=== PATIENT | female | born 1980 | race Caucasian/White ===

== ENCOUNTER 2020-04-07 10:44 | Emergency (ER) | payer MEDICAID, SELFPAY ==
[2020-04-07 11:01] VITALS: BP 164/88; PULSE 85; RESP 18; TEMP 36.2; O2SAT 98; BMI 43.8
--- NOTE | 2020-04-07 11:07 | W.ED.ABDPA2 ---
HPI - Abdominal Pain General: Chief Complaint: Abdominal Pain Stated Complaint: Abd pain Time Seen by Provider: 04/07/20 11:05 Source: patient Mode of arrival: ambulatory Limitations: no limitations History of Present Illness: HPI narrative: Patient is a very nice 39-year-old female who presents to ED today seeking evaluation for her abdominal pain. Patient tells me she has lost approximately 90 pounds over the past year with diet and exercise. She tells me approximately 3 days ago she went to [employer] to celebrate by eating a big cheeseburger and states it was the worst decision I have ever made . She states since that time she has had severe upper abdominal pain. Patient does tell me she has a history of gallbladder disease and states 3 years ago she was diagnosed with a biliary leak at [facility]. She never followed up because she lost her insurance. She states she has not had any difficulty with her gallbladder over the past few years. She reports nausea without vomiting. She has had a few episodes of diarrhea over the past few days. No fevers. MD elicited complaint: abdominal pain Onset (ago): day(s) Pain Consistency: constant Location: RUQ Severity: moderate Radiation: other (L chest/L shoulder) Exacerbating factors: eating Relieving factors: nothing Associated Symptoms: Reports diarrhea and nausea; Denies change in bowel habits, change in stool character, chills, dysuria, fever(s), hematochezia, hematemesis, melena and vomiting Review of Systems Const: Denies: fever(s), chills, body aches, fatigue or malaise Card: Denies: chest pain Resp: Denies: dyspnea GI: Reports: abdominal pain, nausea and diarrhea; Denies: vomiting, hematemesis, change in bowel habits, pain on defecation, change in stool character, hematochezia or melena : Denies: flank pain, difficulty voiding, dysuria, urinary frequency, urinary urgency or urinary hesitancy Musc: Denies: neck pain or back pain Skin/Breast: Denies: rash Neuro: Denies: headache(s), numbness in extremities, weakness in extremities or sensory changes PFSH ED PFSH: Social History (Updated 02/24/20 @ 16:45 by Sujata Bowles CMA) Smoking and tobacco status: never smoked Alcohol intake: never Physical Exam Const: COMMON NORMALS: no acute distress, patient oriented x3, no limitations and alert GENERAL APPEARANCE: cooperative NUTRITIONAL APPEARANCE: overweight ORIENTATION/CONSCIOUSNESS: Yes awake, Yes oriented to person, Yes oriented to place and Yes oriented to time HENMT: COMMON NORMALS: normocephalic and atraumatic HEAD & SCALP: normocephalic and atraumatic Chest: COMMONS NORMALS: normal inspection of the chest and normal palpation of entire chest wall Resp: COMMON NORMALS: normal respiratory effort and clear to auscultation bilaterally AUSCULTATION: clear to auscultation bilaterally Cardio: COMMON NORMALS: regular rate and regular rhythm RATE: regular rate RHYTHM: regular rhythm GI: COMMON NORMALS: Normal to inspection, nondistended, normoactive bowel sounds present, Soft to palpation, No hepatosplenomegaly present and no masses PALPATION: Yes Soft to palpation, Yes Tenderness to palpation present (GI) (mainly to RUQ/epigastric ) and Yes No hepatosplenomegaly present : COMMON NORMALS: Yes no CVA tenderness BLADDER/KIDNEY EXAM: Yes no CVA tenderness Back/Pelvis: COMMON NORMALS: no CVA tenderness Extremity: COMMON NORMALS: normal to inspection GENERAL: Yes normal exam except as noted Neuro: COMMON NORMALS: patient oriented x3 SENSORIUM/ORIENTATION: Yes alert, Yes oriented to person, Yes oriented to place and Yes oriented to time Skin: COMMON NORMALS: no rashes or lesions noted GENERAL SKIN EXAM: no rashes or lesions noted Course Vital Signs: Vital signs: Vital Signs Temperature 97.2 F L 04/07/20 11:01 Pulse Rate 85 04/07/20 11:01 Respiratory Rate 18 04/07/20 11:01 Blood Pressure 164/88 04/07/20 11:01 Pulse Oximetry 98 04/07/20 11:01 MDM - Abdominal Pain MDM Narrative: Medical decision making narrative: Patient here for evaluation of her right upper quadrant pain. Patient's lab work including LFTs at this time are normal. Ultrasound of her gallbladder showing cholelithiasis without acute cholecystitis. Patient will be sent home with pain and nausea medications. I have placed information with case management who is currently working on getting patient follow-up with general surgery for evaluation of an elective cholecystectomy. Return to ED precautions given. Lab Data: Labs: Lab Results 04/07/20 04/07/20 04/07/20 Range/Units 11:30 11:30 11:30 WBC 10.4 H (4.0-10.0) 10^3/ uL RBC 4.66 (4.1-5.3) 10^6/u L Hgb 13.4 (11.5-15.3) g/dL Hct 42.5 (37.0-47.0) % MCV 91.2 (81-99) fL MCH 28.8 (28.0-34.0) pg MCHC 31.5 (30.0-36.0) g/dL RDW 13.6 (12.1-15.1) % Plt Count 358 (130-400) 10^3/c mm MPV 9.8 (7.4-10.4) fL Neut % (Auto) 64.4 % Lymph % (Auto) 27.5 % [place] % (Auto) 5.6 % Eos % (Auto) 1.4 % Baso % (Auto) 0.9 % Neut # (Auto) 6.70 (1.8-7.7) 10^3/u L Lymph # (Auto) 2.9 (0.8-4.8) 10^3/u L [place] # (Auto) 0.6 (0.2-0.9) 10^3/u L Eos # (Auto) 0.2 (0.0-0.8) 10^3/u L Baso # (Auto) 0.1 (0.0-0.1) 10^3/u L Nucleated RBC % (a uto) 0 % Nucleated RBCs # 0.0 /100WBC Sodium 139 (136-145) mmol/L Potassium 4.1 (3.5-5.1) mmol/L Chloride 104 (98-107) mmol/L Carbon Dioxide 28 (22-29) mmol/L Anion Gap 11.1 (5-19) BUN 7 (6-20) mg/dL Creatinine 0.7 (0.5-0.9) mg/dL GFR Calculation 93.2 (90-130) mL/min Glucose 79 (65-115) mg/dL Calculated Osmolal ity 285 (285-295) mOsm/k g Calcium 9.2 (8.5-10.5) mg/dL Total Bilirubin 0.3 (0.15-1.2) mg/dL AST 15 (0-32) U/L ALT 17 (0-33) U/L Alkaline Phosphata se 79 (35-105) IU/L Total Protein 6.9 (6.6-8.7) g/dL Albumin 4.2 (3.5-5.2) g/dL Globulin 2.7 (1.3-4.6) g/dL Lipase 11 L (13-60) U/L HCG, Qual Negative (Negative) Urine Color (Yellow) Urine Appearance (CLEAR) Urine pH (5-7) Ur Specific Gravit y (1.005-1.030) Urine Protein (Negative) Urine Glucose (UA) (Normal) Urine Ketones (Negative) Urine Blood (Negative) Urine Nitrate (Negative) Urine Bilirubin (Negative) Urine Urobilinogen (Negative) mg/dL Ur Leukocyte Katheryn ase (Negative) 04/07/20 Range/Units 11:30 WBC (4.0-10.0) 10^3/ uL RBC (4.1-5.3) 10^6/u L Hgb (11.5-15.3) g/dL Hct (37.0-47.0) % MCV (81-99) fL MCH (28.0-34.0) pg MCHC (30.0-36.0) g/dL RDW (12.1-15.1) % Plt Count (130-400) 10^3/c mm MPV (7.4-10.4) fL Neut % (Auto) % Lymph % (Auto) % [place] % (Auto) % Eos % (Auto) % Baso % (Auto) % Neut # (Auto) (1.8-7.7) 10^3/u L Lymph # (Auto) (0.8-4.8) 10^3/u L [place] # (Auto) (0.2-0.9) 10^3/u L Eos # (Auto) (0.0-0.8) 10^3/u L Baso # (Auto) (0.0-0.1) 10^3/u L Nucleated RBC % (a uto) % Nucleated RBCs # /100WBC Sodium (136-145) mmol/L Potassium (3.5-5.1) mmol/L Chloride (98-107) mmol/L Carbon Dioxide (22-29) mmol/L Anion Gap (5-19) BUN (6-20) mg/dL Creatinine (0.5-0.9) mg/dL GFR Calculation (90-130) mL/min Glucose (65-115) mg/dL Calculated Osmolal ity (285-295) mOsm/k g Calcium (8.5-10.5) mg/dL Total Bilirubin (0.15-1.2) mg/dL AST (0-32) U/L ALT (0-33) U/L Alkaline Phosphata se (35-105) IU/L Total Protein (6.6-8.7) g/dL Albumin (3.5-5.2) g/dL Globulin (1.3-4.6) g/dL Lipase (13-60) U/L HCG, Qual (Negative) Urine Color Straw (Yellow) Urine Appearance Clear (CLEAR) Urine pH 7 (5-7) Ur Specific Gravit y 1.005 (1.005-1.030) Urine Protein Neg (Negative) Urine Glucose (UA) Norm (Normal) Urine Ketones Negative (Negative) Urine Blood Neg (Negative) Urine Nitrate Negative (Negative) Urine Bilirubin Neg (Negative) Urine Urobilinogen Norm (Negative) mg/dL Ur Leukocyte Katheryn ase Negative (Negative) Imaging Data ^: US gallbladder: Radiologist's impression: [address] [address] Ultrasound Report Signed Patient: Jimmie Knapp Unit #: [id number] : 1980 Age/Sex: 39 / F ADM Date: 04/07/20 Loc: ER Room/Bed: Attending Dr: Ordering Provider/Ordering MD: Jennifer Howell Date of Service: 04/07/20 Procedure(s): US gall bladder 75480 Accession Number(s): [id number] Report Number: [id number] WS: [id number] RIGHT UPPER QUADRANT ULTRASOUND HISTORY: RUQ pain COMPARISON: 01/07/2011 Liver: 18.9 cm in length. Moderately enlarged liver with hepatic steatosis. No mass. The entire liver is not well seen. Gallbladder: Poorly visualized gallbladder. There is a stone with shadowing measuring 2.5 cm in the lumen of the gallbladder. No pericholecystic fluid or gallbladder wall thickening. CBD: 0.5 cm Pancreas: Normal size and echogenicity. Right kidney: 11.6 cm in length. Normal size and echogenicity. No hydronephrosis or mass. Aorta and IVC: Unremarkable abdominal aorta and IVC. No ascites. US/US gall bladder [id number] IMPRESSION: 1. Cholelithiasis without acute cholecystitis. 2. Mild hepatomegaly and hepatic steatosis. 3. Limited quality evaluation of the RIGHT upper quadrant. Dictated By: Hillary Varela DO Signed By: Hillary Varela DO Signed Date/Time: 04/07/20 1158 DD/ 1156 Discharge Plan Discharge Patient Disposition: Home Clinical Impression: Cholelithiasis Qualifiers: Cholelithiasis location: gallbladder Cholecystitis presence: without cholecystitis Biliary obstruction: without biliary obstruction Qualified Code(s): K80.20 - Calculus of gallbladder without cholecystitis without obstruction Condition: Stable Prescriptions: New hydrocodone-acetaminophen 5-325 mg tablet 1 tab PO Q6H PRN (Reason: pain) Qty: 15 RF: 0 Zofran 4 mg tablet 4 mg PO Q6H PRN (Reason: nausea and vomiting) Qty: 14 RF: 0 No Action hydrocodone-acetaminophen 5-325 mg tablet 1 tab PO Q6H PRN (Reason: Pain) RF: 0 Discharge Orders: Discharge ED (Routine); Ordered 04/07/20 Ordered By: Jennifer Howell Referrals: Sujata Schofield DO [Primary Care Provider] - Patient Instructions: Cholelithiasis, Biliary Colic (ED) Activity Restrictions/Additional Instructions: As discussed case management is working on getting you an appointment with general surgery for further evaluation of your gallstones. You need to return to the emergency department for severe abdominal pain, yellowing of your skin or eyes, repetitive episodes of vomiting, fevers, or any other concerns you may have. I hope you get to feeling better soon. Coding Level of Care Code ED Technical Sales Support Manager for Melony Fwtacho Exam Comprehensive
--- NOTE | 2020-04-07 11:20 | US_ITS ---
WS: [id number] RIGHT UPPER QUADRANT ULTRASOUND HISTORY: RUQ pain COMPARISON: 01/07/2011 Liver: 18.9 cm in length. Moderately enlarged liver with hepatic steatosis. No mass. The entire liver is not well seen. Gallbladder: Poorly visualized gallbladder. There is a stone with shadowing measuring 2.5 cm in the l umen of the gallbladder. No pericholecystic fluid or gallbladder wall thickening. CBD: 0.5 cm Pancreas: Normal size and echogenicity. Right kidney: 11.6 cm in length. Normal size and echogenicity. No hydronephrosis or mass. Aorta and IVC: Unremarkable abdominal aorta and IVC. No ascites. US/US gall bladder [id number] IMPRESSION: 1. Cholelithiasis without acute cholecystitis. 2. Mild hepatomegaly and hepatic steatosis. 3. Limited quality evaluation of the RIGHT upper quadrant.
[2020-04-07 11:42] LABS: Add Urine Microscopic? NO
[2020-04-07 11:44] LABS: Basophils # 0.1 10^3/uL (0.0-0.1); Basophils % 0.9 %; Eosinophils # 0.2 10^3/uL (0.0-0.8); Eosinophils % 1.4 %; Hematocrit 42.5 % (37.0-47.0); Hemoglobin 13.4 g/dL (11.5-15.3); Lymphocytes # 2.9 10^3/uL (0.8-4.8); Lymphocytes % 27.5 %; Mean Corpuscular HGB Conc 31.5 g/dL (30.0-36.0); Mean Corpuscular Hemoglobin 28.8 pg (28.0-34.0); Mean Corpuscular Volume 91.2 fL (81-99); Mean Platelet Volume 9.8 fL (7.4-10.4); Monocytes # 0.6 10^3/uL (0.2-0.9); Monocytes % 5.6 %; Neutrophils % 64.4 %; Nucleated Red Blood Cells % 0 %; Platelet Count 358 10^3/cmm (130-400); Red Blood Count 4.66 10^6/uL (4.1-5.3); Red Cell Distribution Width 13.6 % (12.1-15.1); White Blood Count 10.4 10^3/uL (4.0-10.0)
[2020-04-07 11:45] LABS: Urine Appearance Clear (CLEAR); Urine Color Straw (Yellow)
[2020-04-07 11:46] LABS: Bilirubin Urine Neg (Negative); Blood Urine Neg (Negative); Glucose Urine UA Norm (Normal); Ketones Urine Negative (Negative); Leukocyte Esterase Urine Negative (Negative); Nitrate Urine Negative (Negative); Protein Urine Neg (Negative); Specific Gravity, Urine 1.005 (1.005-1.030); Urobilinogen Urine Norm (Negative); pH Urine 7 (5-7)
[2020-04-07 11:58] LABS: HCG, Serum Qual Negative (Negative)
[2020-04-07 12:03] LABS: Alanine Aminotransferase 17 U/L (0-33); Albumin Level 4.2 g/dL (3.5-5.2); Alkaline Phosphatase 79 IU/L (35-105); Anion Gap 11.1 (5-19); Aspartate Amino Transferase 15 U/L (0-32); Blood Urea Nitrogen 7 mg/dL (6-20); Calcium 9.2 mg/dL (8.5-10.5); Carbon Dioxide 28 mmol/L (22-29); Chloride 104 mmol/L (98-107); Creatinine Clr Calc Pharmacy 149.4921; Globulin 2.7 g/dL (1.3-4.6); Glomerular Filtration Rate 93.2 mL/min (90-130); Glucose 79 mg/dL (65-115); Lipase 11 U/L (13-60); Osmolality Calculated 285 mOsm/kg (285-295); Potassium 4.1 mmol/L (3.5-5.1); Sodium 139 mmol/L (136-145); Total Bilirubin 0.3 mg/dL (0.15-1.2); Total Protein 6.9 g/dL (6.6-8.7)
--- NOTE | 2020-04-07 12:28 | DCPLANNER ---
linen manager was asked to schedule a follow up appointment for patient with general surgery. linen manager emailed patients information to both Lety and Jesusita at [facility] General Surgery. Patients information will be printed and reviewed. Clinic will call patient with appointment information.
--- NOTE | 2020-04-08 12:45 | DCPLANNER ---
Patient has a follow up appointment scheduled for Sunday, April 12, 2020 at 2:30 with [facility] General Surgery. Clinic will call patient with appointment information.
--- NOTE | 2020-05-20 15:51 | DCPLANNER ---
Patient had a follow up appointment scheduled with general surgery - patient did attend appointment.
== END 2020-04-07 12:33 | disposition home or self-care (01) ==
PROVIDERS: Emergency Provider Physician Assistant; PCP Family Medicine
DX: K80.20 Calculus of gallbladder without cholecystitis without obstruction (principal)
CPT/HCPCS: 12345; 76705; 80053; 81003; 83690; 84703; 85025; 99282; 99283

== ENCOUNTER → 2020-04-16 11:11 | Outpatient (BNVA) | payer MEDICAID, SELFPAY | PROVIDERS: PCP Nurse Practitioner Family; Visit Provider Surgery | DX: Z01.812 Encounter for preprocedural laboratory examination (principal) | CPT/HCPCS: 87635 ==

== ENCOUNTER 2020-04-19 10:23 | Day surgery (SDC) | payer MEDICAID, SELFPAY ==
[2020-04-16 17:19] VITALS: BMI 43.8
[2020-04-19] VITALS (9 sets, daily range): BP systolic 129–175; BP diastolic 82–105; PULSE 53–76; RESP 16–20; TEMP 36.2–36.3; O2SAT 93–100
--- NOTE | 2020-04-19 12:33 | P.ANESASSM_ITS ---
Pre-Anesthetic Assessment Pre-Anesthetic Assessment: Height/Weight: Height 1.7 m Weight 127.006 kg Temp Pulse Resp BP Pulse Ox 97.4 F L 58 L 18 129/84 100 04/19/20 12:06 04/19/20 12:06 04/19/20 12:06 04/19/20 12:06 04/19/20 12:06 Preop Diagnosis: Cholelithiasis Proposed Procedure: Operation Date: 04/19/20 12:25 Proposed Procedures p Laparoscopic Cholecystectomy 88182 k80.20(Not Applicable) - Germán Mora MD Familial anesthetic complications: Difficulty waking up Was Beta Sindy taken within 24 hours: N/A Last intake: Intake Last Liquid Date 04/19/20 Last Liquid Time 07:00 Last Solid Date 04/18/20 Last Solid Time 18:30 Social: Social History: Tobacco and No alcohol Exam: Pre-Anes Outpt Exam: alert, oriented x 3, clear to auscultation bilaterally and regular rate & rhythm Airway: Cervical ROM: WNL MP: 2 Dentition: Chipped and Other (missing) Pulmonary: Pulmonary: Asthma GI: GI: GERD Metabolic: Metabolic: Morbid obesity Anesthetic Plan: ASA status: 2 Anesthesia: General Risk of > 500 ml bloo d loss (7ml/kg in children): No PFSH Anesthesia PFSH: Medical History (Updated 04/16/20 @ 19:32 by Germán Mora MD) Asthma Cholelithiasis Surgical History (Updated 04/16/20 @ 10:20 by Germán Mora MD) History of Family History (Updated 04/16/20 @ 10:08 by NANDINI Win) Other Bleeding disorder Denies family history of Anesthesia complication Social History (Updated 04/16/20 @ 10:08 by NANDINI Win) Smoking and tobacco status: current every day smoker Alcohol intake: never Data Anesthesia Cardiac Studies: No Data to Display
[2020-04-19 12:51] LABS: OR HCG Qualitative Urine Negative (Negative)
--- NOTE | 2020-04-19 13:01 | W.PM.OPSUD ---
Surgery/Procedure H&P Update DATE OF PROCEDURE: April 19, 2020 DATE H&P PERFORMED: 04/16/20 H&P UPDATE INFORMATION: I have reviewed H&P completed within last 30 days, I have examined patient prior to procedure and No changes to prior documentation PREOP DIAGNOSIS: Cholelithiasis PLANNED PROCEDURE: Operation Date: 04/19/20 12:25 Proposed Procedures p Laparoscopic Cholecystectomy 39889 k80.20(Not Applicable) - Germán Mora MD
[2020-04-19] MEDS: sodium chloride 0.9% 1,000 ML 30 ML IV (13:07)
[2020-04-19] MEDS: levofloxacin-dextrose 5 % 500 MG/100 ML PREMIX 100 MG IV (14:05)
--- NOTE | 2020-04-19 15:21 | PM.OP ---
Operative Report Date of procedure: April 19, 2020 Pre-op Diagnosis: Cholelithiasis Post-op diagnosis: same Procedure Done: Laparoscopic cholecystectomy Specimens removed/disposition: gallbladder Surgeon: Germán Mora Anesthesia: General Condition: stable Disposition: PACU Procedure: The patient was taken to the operating room and was intubated under general anesthesia. After the antibiotic had been administered, the abdomen was prepped and draped in a sterile manner. Using a #15 blade, a 1 centimeter infraumbilical curvilinear incision was made and using an open Osbaldo technique the peritoneal cavity was entered. A 10 millimeter port was placed and 15 millimeters of pneumoperitoneum was created. A 10 millimeter, 30 degrees scope was then introduced. Three 5 millimeter ports were placed in the epigastric, midclavicular and the anterior axillary line two fingerbreadths below the costal margin on the right side under the direct visualization. Ratcheted forceps were introduced into the lateral most port and was used to retract the fundus of the gallbladder cephalad and using forceps the infundibulum of the gallbladder was retracted laterally. Using L-hook cautery the peritoneum overlying the Calot's triangle was opened medially and laterally until the cystic duct and the cystic artery were skeletonized. Dissection was carried along the body of the gallbladder and after ensuring critical view of safety, 4 clips applied on the cystic duct and 3 clips applied on the cystic artery and cut leaving, 3 clips on the remaining portion of the duct and 2 clips on the remaining portion of the artery. The rest of the gallbladder was dissected off the liver using L-hook cautery. The gallstones impacted within the fundus of the gallbladder and there is an opening made near the fundus while attempting to separate the gallbladder from the gallbladder fossa resulting in drainage of bile which was irrigated and suctioned out. There was no bleeding or bile leaking noted from the gallbladder fossa and the clips appeared to be in place. An EndoCatch bag was introduced to remove the gallbladder. All the ports were removed under direct visualization and there was no bleeding noted from the port sites. The fascia of the umbilicus was closed using [id number] 0 Vicryl sutures and the subcutaneous tissue was approximated using 3-0 Vicryl sutures. The skin at all four ports were closed using 4-0 Monocryl and Dermabond. A total of 10 millimeters of 0.5% Marcaine was infiltrated around the port sites. The patient was stable throughout the procedure.
[2020-04-19] MEDS: fentaNYL 50 mcg/mL INJ 2mL IVP (15:28)
--- NOTE | 2020-04-19 15:30 | P.PCN_ITS ---
PACU note PACU note: VSS, Good respiratory effort, report to VIRTUAL REALITY SPECIALIST Post-Anesthesia Exam: awake
--- NOTE | 2020-04-19 15:30 | PM.PACU ---
PACU note PACU note: VSS, Good respiratory effort, report to EDUCATION ADMINISTRATOR Post-Anesthesia Exam: awake
--- NOTE | 2020-04-19 15:57 | ANE.PACU2 ---
Inpatient post-anesthesia follow up: Airway intact: Yes Vital signs: Temperature 97.1 F Pulse Rate 64 Respiratory Rate 17 Blood Pressure 170/82 Pulse Oximetry 95 Oxygen Delivery Me thod Room Air Oxygen Flow Rate Fraction of Inspir ed Oxygen Hydration adequate: Yes Nausea and vomiting: No Pain level: 3 Mental status: Baseline
[2020-04-19] MEDS: HYDROcodone-acetaminophen 5-325 mg Tablet 1 TAB PO (16:09)
== END 2020-04-19 16:50 | disposition home or self-care (01) ==
PROVIDERS: Anesthesiology; PCP Nurse Practitioner Family; Visit Provider Surgery
PROC: 0FT44ZZ Resection of Gallbladder, Percutaneous Endoscopic Approach (ICD-10-PCS; CPT 47562; principal; 2020-04-19 12:25)
DX: K80.10 Calculus of gallbladder with chronic cholecystitis without obstruction (principal); J45.909 Unspecified asthma, uncomplicated; K21.9 Gastro-esophageal reflux disease without esophagitis; E66.01 Morbid (severe) obesity due to excess calories; Z68.41 Body mass index [BMI] 40.0-44.9, adult; F17.210 Nicotine dependence, cigarettes, uncomplicated
CPT/HCPCS: 47562; 81025; 84703; 88304; J0131; J1100; J1956; J2405; J2704; J2710; J3010; J3490; J7030

== ENCOUNTER → 2021-03-03 13:58 | Outpatient (BNVA) | payer MEDICAID, SELFPAY | PROVIDERS: PCP Nurse Practitioner Family; Visit Provider Nurse Practitioner Family | DX: Z20.822 Contact with and (suspected) exposure to COVID-19 (principal) | CPT/HCPCS: 87635 ==

== ENCOUNTER 2021-03-09 10:37 | Outpatient (CLI) | payer MEDICAID, SELFPAY ==
[2021-03-09 10:59] VITALS: BP 147/89; PULSE 74; RESP 18; TEMP 36.7; O2SAT 98; BMI 45.4
[2021-03-09 12:10] VITALS: BP 165/88; PULSE 59; RESP 17; TEMP 36.8; O2SAT 99
[2021-03-09 12:30] VITALS: BP 148/85; PULSE 60; RESP 18; TEMP 36.7; O2SAT 99
== END 2021-03-09 10:38 | disposition home or self-care (01) ==
LOC: OPS 10:40
PROVIDERS: PCP Nurse Practitioner Family; Visit Provider Nurse Practitioner Family
DX: U07.1 COVID-19 (principal)
CPT/HCPCS: 96365

== ENCOUNTER → 2021-05-13 16:01 | Outpatient (BNVA) | payer MEDICAID, SELFPAY | PROVIDERS: PCP Nurse Practitioner Family; Visit Provider Emergency Medicine | DX: M25.571 Pain in right ankle and joints of right foot (principal) | CPT/HCPCS: 73610 ==

== ENCOUNTER 2021-11-01 12:16 | Emergency (ER) | payer MEDICAID, SELFPAY ==
[2021-11-01 12:17] VITALS: BP 171/121; PULSE 76; RESP 16; TEMP 36.7; O2SAT 99; BMI 44.1
[2021-11-01 13:11] LABS: HCG Qualitative Urine. Negative (Negative)
[2021-11-01 14:05] LABS: Basophils # 0.1 10^3/uL (0.0-0.1); Basophils % 0.7 %; Eosinophils # 0.2 10^3/uL (0.0-0.8); Eosinophils % 1.1 %; Hematocrit 41.3 % (37.0-47.0); Hemoglobin 12.6 g/dL (11.5-15.3); Mean Corpuscular HGB Conc 30.5 g/dL (30.0-36.0); Mean Corpuscular Hemoglobin 26.9 pg (28.0-34.0); Mean Corpuscular Volume 88.1 fl (81-99); Mean Platelet Volume 9.1 fL (7.4-10.4); Monocytes # 0.6 10^3/uL (0.2-0.9); Monocytes % 4.1 %; Neutrophils # 10.23 10^3/uL (1.8-7.7); Neutrophils % 72.7 %; Nucleated Red Blood Cells % 0 %; Platelet Count 421 10^3/cmm (130-400); Red Blood Count 4.69 10^6/uL (4.1-5.3); Red Cell Distribution Width 14.5 % (12.1-15.1); White Blood Count 14.1 10^3/uL (4.0-10.0)
[2021-11-01 14:19] LABS: Alanine Aminotransferase 19 U/L (0-33); Albumin Level 4.1 g/dL (3.5-5.2); Alkaline Phosphatase 101 U/L (35-105); Anion Gap 10.8 (5-19); Aspartate Amino Transferase 16 U/L (0-32); Blood Urea Nitrogen 8 mg/dL (6-20); Calcium 9.4 mg/dL (8.5-10.5); Carbon Dioxide 27 mmol/L (22-29); Chloride 101 mmol/L (98-107); Glomerular Filtration Rate 110.2 mL/min (90-130); Glucose 79 mg/dL (65-115); Lipase 13 U/L (13-60); Osmolality Calculated 277 mOsm/kg (285-295); Potassium 3.8 mmol/L (3.5-5.1); Sodium 135 mmol/L (136-145); Total Bilirubin 0.4 mg/dL (0.15-1.2); Total Protein 7.1 g/dL (6.6-8.7)
[2021-11-01 14:22] LABS: Lactate (Lactic Acid level) 0.7 mmol/L (0.5-2.2)
--- NOTE | 2021-11-01 14:38 | CT_ITS ---
WS: [id number] CT ABDOMEN AND PELVIS WITH CONTRAST HISTORY: abd pain, rectal bleeding TECHNIQUE: Imaging performed of the abdomen and pelvis with IV contrast. Single phase imaging of the abdomen. Coronal and sagittal reformats are submitted. All CT scans at [facility] use at [address] [facility] one of these dose optimization techniques: automated exposure control; mA and/or kV adjustment per patient size (includes targeted exams where dose is matched to clinical indication); or iterative re construction. IV CONTRAST: Omnipaque 350; 80 mL IV. Oral contrast: No DLP: 1194.44 mGy.cm COMPARISON: None available. Lower thorax: Lung bases are clear. Heart is normal size. No hiatal hernia. Liver/biliary system: Normal size with no intrahepatic dilatation. Gallbladder: Status post cholecystectomy. Pancreas: Normal size pancreas and pancreatic duct. No adjacent inflammation. Spleen: Normal size spleen. No mass or infarct. Adrenal glands: Normal. Right kidney: Low-attenuation nodule measuring 5.5 mm central kidney. 2 small to characterize. No caroline id mass or obstruction. Left kidney: Negative. Aorta: Mild atherosclerosis with no aneurysm. Lymphadenopathy: None. Free fluid: None. GI tract: Stomach is negative. No small bowel obstruction. The appendix is normal. No colon obstructi on. No colonic mass. Abdominal wall: Fat containing umbilical hernia. Pelvis: Anteverted uterus. Normal size ovaries. No free fluid or adenopathy. Bones: Unremarkable. CT/CT abdomen pelvis w con* [id number] IMPRESSION: 1. No acute abdominal or pelvic abnormalities are identified. 2. No ascites or adenopathy. 3. Prior cholecystectomy.
--- NOTE | 2021-11-01 14:38 | ED_ITS ---
HPI - GI Bleed General: Chief complaint: GI Bleed Stated complaint: passing blood through the stools Time Seen by Provider: 11/01/21 14:02 Source: patient Mode of arrival: ambulatory Limitations: no limitations History of Present Illness: 41-year-old female who presents to the emergency room from primary care clinic. For last 4 days she has had intermittent blood in the stool. She states initially it was blood mingled with stool in the last several episodes have been actual large amounts of what appears to be just solid clotted blood. She has not had any abdominal pain associated with it no dysuria urgency or frequency no hematemesis or coffee-ground emesis. She generally felt a little weak but has not had any near syncopal episodes. States eating seems to make it worse she had some associated nausea with it. She has not sweats or chills. complaint: blood streaked stool Onset (ago): day(s) (4) Pain Consistency: intermittent Severity: mild Relieving factors: none Exacerbating factors: none Associated symptoms: Denies abdominal pain, chills, easy bruising, epistaxis, fever(s), headache(s), malaise, nausea, other bleeding, poor appetite, rash, syncope, vomiting or weakness Review of Systems Const: Denies: fever(s), chills, fatigue or malaise ENMT: Denies: epistaxis Card: Denies: chest pain, palpitations, irregular heart rhythm or syncope Resp: Denies: dyspnea, productive cough or non-productive cough GI: Denies: abdominal pain, nausea or vomiting : Denies: flank pain, difficulty voiding, dysuria, urinary frequency or urinary urgency Skin/Breast: Denies: rash Neuro: Denies: headache(s) Bhavin/Lymph: Denies: easy bruising PFS ED PFSH: Medical History Asthma Cholelithiasis Obesity Seasonal allergies Smoking Swelling of right side of face Surgical History History of Status post laparoscopic cholecystectomy (04/19/20) Family History Other Bleeding disorder Denies family history of Anesthesia complication Social History Smoking and tobacco status: current every day smoker Alcohol intake: never Female Reproductive History: Date of last menstrual period: 10/05/21 Spontaneous abortions: No Physical Exam Const: GENERAL APPEARANCE: cooperative and comfortable ORIENTATION/CONSCIOUSNESS: Yes awake, Yes oriented to person, Yes oriented to place and Yes oriented to time HENMT: COMMON NORMALS: normocephalic, atraumatic and hearing grossly normal bilaterally HEAD & SCALP: normocephalic and atraumatic Resp: COMMON NORMALS: normal respiratory effort, No retractions, No use of accessory muscles and clear to auscultation bilaterally AUSCULTATION: clear to auscultation bilaterally Cardio: COMMON NORMALS: regular rate, regular rhythm and No murmurs present (Cardio) RATE: regular rate RHYTHM: regular rhythm GI: COMMON NORMALS: Soft to palpation and No hepatosplenomegaly present AUSCULTATION: Yes normoactive bowel sounds PALPATION: Yes Soft to palpation, No Tenderness to palpation present (GI), No Guarding due to palpation present (GI) and Yes No hepatosplenomegaly present Extremity: COMMON NORMALS: normal to inspection, capillary refill normal, no clubbing, cyanosis or edema, no calf tenderness and no pedal edema Neuro: SENSORIUM/ORIENTATION: Yes oriented to person, Yes oriented to place and Yes oriented to time Skin: COMMON NORMALS: no rashes or lesions noted GENERAL SKIN EXAM: no rashes or lesions noted Course Vital Signs: Vital signs: Vital Signs Temperature 98.1 F 11/01/21 12:17 Pulse Rate 88 11/01/21 18:56 Respiratory Rate 19 H 11/01/21 18:56 Blood Pressure 165/111 11/01/21 18:56 Pulse Oximetry 97 11/01/21 18:56 Oxygen Delivery Me thod 11/01/21 18:02 MDM - GI Bleed Medical Decision Making Hemoglobin stable. Will discharge home and have patient follow-up with primary care doctor recheck a hemoglobin within the next [address] labs and imaging reviewed as found in the chart. Medical Records I reviewed the patient's medical records. Lab Data I reviewed the patient's lab results. : 11/01/21 13:55 11/01/21 13:55 Radiology Impressions Abdomen/Pelvis CT 11/01/21 14:38 IMPRESSION: 1. No acute abdominal or pelvic abnormalities are identified. 2. No ascites or adenopathy. 3. Prior cholecystectomy. Laboratory Results WBC 14.1 10^3/uL (4.0-10.0) H 11/01/21 13:55 RBC 4.69 10^6/uL (4.1-5.3) 11/01/21 13:55 Hgb 12.6 g/dL (11.5-15.3) 11/01/21 13:55 Hct 41.3 % (37.0-47.0) 11/01/21 13:55 MCV 88.1 fl (81-99) 11/01/21 13:55 MCH 26.9 pg (28.0-34.0) L 11/01/21 13:55 MCHC 30.5 g/dL (30.0-36.0) 11/01/21 13:55 RDW 14.5 % (12.1-15.1) 11/01/21 13:55 Plt Count 421 10^3/cmm (130-400) H 11/01/21 13:55 MPV 9.1 fL (7.4-10.4) 11/01/21 13:55 Neut % (Auto) 72.7 % 11/01/21 13:55 Lymph % (Auto) 21.0 % 11/01/21 13:55 [place] % (Auto) 4.1 % 11/01/21 13:55 Eos % (Auto) 1.1 % 11/01/21 13:55 Baso % (Auto) 0.7 % 11/01/21 13:55 Neut # (Auto) 10.23 10^3/uL (1.8-7.7) H 11/01/21 13:55 Lymph # (Auto) 3.0 10^3/uL (0.8-4.8) 11/01/21 13:55 [place] # (Auto) 0.6 10^3/uL (0.2-0.9) 11/01/21 13:55 Eos # (Auto) 0.2 10^3/uL (0.0-0.8) 11/01/21 13:55 Baso # (Auto) 0.1 10^3/uL (0.0-0.1) 11/01/21 13:55 Nucleated RBC % (auto) 0 % 11/01/21 13:55 Nucleated RBCs # 0.0 /100WBC 11/01/21 13:55 Sodium 135 mmol/L (136-145) L 11/01/21 13:55 Potassium 3.8 mmol/L (3.5-5.1) 11/01/21 13:55 Chloride 101 mmol/L (98-107) 11/01/21 13:55 Carbon Dioxide 27 mmol/L (22-29) 11/01/21 13:55 Anion Gap 10.8 (5-19) 11/01/21 13:55 BUN 8 mg/dL (6-20) 11/01/21 13:55 Creatinine 0.6 mg/dL (0.5-0.9) 11/01/21 13:55 GFR Calculation 110.2 mL/min (90-130) 11/01/21 13:55 Glucose 79 mg/dL (65-115) 11/01/21 13:55 Calculated Osmolality 277 mOsm/kg (285-295) L 11/01/21 13:55 Lactate 0.7 mmol/L (0.5-2.2) 11/01/21 13:55 Calcium 9.4 mg/dL (8.5-10.5) 11/01/21 13:55 Total Bilirubin 0.4 mg/dL (0.15-1.2) 11/01/21 13:55 AST 16 U/L (0-32) 11/01/21 13:55 ALT 19 U/L (0-33) 11/01/21 13:55 Alkaline Phosphatase 101 U/L (35-105) 11/01/21 13:55 Total Protein 7.1 g/dL (6.6-8.7) 11/01/21 13:55 Albumin 4.1 g/dL (3.5-5.2) 11/01/21 13:55 Globulin 3.0 g/dL (1.3-4.6) 11/01/21 13:55 Lipase 13 U/L (13-60) 11/01/21 13:55 HCG, Qual Negative (Negative) 11/01/21 13:00 Discharge Plan Discharge Patient Disposition: Home Clinical Impression: Rectal bleeding Condition: Stable Prescriptions: New Toprol XL 25 mg tablet extended release 24 hr 25 mg PO DAILY Qty: 30 0RF amlodipine 10 mg tablet 10 mg PO DAILY Qty: 30 0RF No Action albuterol sulfate [Ventolin HFA] 90 mcg/actuation HFA aerosol inhaler 2 puff inhalation Q4H PRN (Reason: Shortness Of Breath) albuterol sulfate 2.5 mg /3 mL (0.083 %) solution for nebulization 2.5 mg inhalation Q4H PRN (Reason: Shortness Of Breath) budesonide-formoterol [Symbicort] 160-4.5 mcg/actuation HFA aerosol inhaler 2 puff inhalation BID Qty: 10.2 0RF ondansetron 4 mg tablet,disintegrating 4 mg PO Q6H PRN (Reason: nausea and vomiting) Qty: 12 0RF Rx Instructions: 340b please Tylenol Ex Str Rapid Release 500 mg Tablet 1,000 mg PO Q6H PRN (Reason: Pain) Discharge Orders: Discharge ED (Routine); Ordered 11/01/21 Ordered By: Marcos Barroso Referrals: Kailee Dorsey FNP [Primary Care Provider] - Discharge Diet: Usual diet Discharge Activity: Resume usual activity Patient Instructions: Opioid Safety Activity Restrictions/Additional Instructions: Case management make arrangements for her to follow-up with general surgery for colonoscopy. Coding Level of Care Code ED Adjustment Examiner for Melony Mansfield
[2021-11-01] MEDS: iohexol 350 mg/mL 100 mL Btl IV (15:13)
[2021-11-01 16:45] VITALS: BP 219/164; PULSE 73; RESP 16; O2SAT 99
[2021-11-01] MEDS: hyDRALAzine 20 mg/mL INJ 1 mL IVP (17:00)
[2021-11-01 17:42] VITALS: BP 244/134; PULSE 111; RESP 21; O2SAT 99
[2021-11-01] MEDS: labetalol 5 mg/mL SDV 20mL 10 MG IVP (17:49)
[2021-11-01] MEDS: amlodipine 10 mg Tablet PO (17:50)
[2021-11-01] MEDS: enalaprilat 1.25 mg/mL Inj IVP (17:51)
[2021-11-01] MEDS: metoprolol succinate ER (24 HR) 25 mg Tablet PO (17:54)
[2021-11-01 18:02] VITALS: BP 183/117; PULSE 95; RESP 21; O2SAT 97
[2021-11-01 18:56] VITALS: BP 165/111; PULSE 88; RESP 19; O2SAT 97
== END 2021-11-01 18:58 | disposition home or self-care (01) ==
PROVIDERS: Emergency Provider Family Medicine; PCP Nurse Practitioner Family
DX: K62.5 Hemorrhage of anus and rectum (principal); F17.210 Nicotine dependence, cigarettes, uncomplicated
CPT/HCPCS: 36415; 74177; 80053; 81000; 81025; 83605; 83690; 85025; 87086; 96374; 96375; 99285; J0360; J3490; Q9967

== ENCOUNTER → 2021-11-02 14:39 | Outpatient (BNVA) | payer MEDICAID, SELFPAY | PROVIDERS: PCP Nurse Practitioner Family; Visit Provider Emergency Medicine | DX: I10 Essential (primary) hypertension; E66.9 Obesity, unspecified; K62.5 Hemorrhage of anus and rectum; R11.2 Nausea with vomiting, unspecified; R22.0 Localized swelling, mass and lump, head; E66.01 Morbid (severe) obesity due to excess calories; Z68.41 Body mass index [BMI] 40.0-44.9, adult | CPT/HCPCS: 84443 ==

== ENCOUNTER → 2021-12-01 11:49 | Outpatient (BNVA) | payer MEDICAID, SELFPAY | PROVIDERS: PCP Nurse Practitioner Family; Visit Provider Nurse Practitioner Family | DX: I10 Essential (primary) hypertension (principal) | CPT/HCPCS: 80053; 80061; 83036; 85025 ==

== ENCOUNTER → 2023-06-15 15:10 | Outpatient (BNVA) | payer MEDICAID, SELFPAY | PROVIDERS: Visit Provider Emergency Medicine | DX: J02.9 Acute pharyngitis, unspecified (principal) | CPT/HCPCS: 87071; 87880 ==

== ENCOUNTER 2024-09-06 15:26 | Emergency (ER) | payer MEDICAID, SELFPAY ==
--- NOTE | 2024-09-06 15:29 | XRR_ITS ---
PROCEDURE INFORMATION: Exam: XR Chest Exam date and time: 09/06/2024 5:12 PM Age: 44 years old Clinical indication: Dyspnea; Cough; Congestion; Fever TECHNIQUE: Imaging protocol: Radiologic exam of the chest. Views: 1 view. COMPARISON: CT abdomen pelvis w con* [id number] 11/01/2021 3:07 PM FINDINGS: Lungs: Unremarkable. No consolidation. Pleural spaces: Unremarkable. No pleural effusion. No pneumothorax. Heart/Mediastinum: Unremarkable. No cardiomegaly. Bones/joints: Unremarkable. XR/XR chest 1V portable [id number] IMPRESSION: No acute findings.
[2024-09-06 15:34] VITALS: BP 177/85; PULSE 82; RESP 18; TEMP 37.1; O2SAT 95; BMI 45.4
--- OUTSIDE RECORDS SUMMARY | 2024-09-06 15:35 | XMS_ITS | Encounter Summary ---
Author Organization [facility] Address [address] [place] [address] Care Team Providers Care Fire Behavior Analyst Name Role Phone Zachary Milton MD Primary Care Provider [phone] Encounter Details Date Type Department Care Team (Latest Contact Info) Description 10/24/2004 Outpatient Historical [facility] Medicine [place] [address] [place] [id number] Kennedy Roberts, FINANCIAL SYSTEMS ADMINISTRATOR [address], [place] [address] ABDOMINAL PAIN UNSPEC SITE (Primary Dx); ABSENCE OF MENSTRUATION Social History Tobacco Use Types Packs/Day Years Used Date Smoking Tobacco: Never Assessed Comments Unknown Sex and Gender Information Value Date Recorded Sex Assigned at Not on file Legal Sex Female 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
--- OUTSIDE RECORDS SUMMARY | 2024-09-06 15:35 | XMS_ITS | Encounter Summary ---
Author Organization [facility] Address [address] [place] [address] Care Team Providers Care Director Embalmer Name Role Phone Zachary Milton MD Primary Care Provider Encounter Details Date Type Department Care Team (Latest Contact Info) Description 05/23/2005 Outpatient [facility] Medicine[address] [phone] Carol Aguiar MD [address] [place] [address] Polycystic Ovaries (Primary Dx); Abnormal Weight Gain Social History Tobacco Use Types Packs/Day Years Used Date Smoking Tobacco: Never Assessed Comments Unknown Sex and Gender Information Value Date Recorded Sex Assigned at Not on file Legal 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
--- OUTSIDE RECORDS SUMMARY | 2024-09-06 15:35 | XMS_ITS | Encounter Summary ---
Author Organization [facility] Address [address] [place] [address] Care Team Providers Care Director Of Digital Technology Name Role Phone Zachary Milton MD Primary Care Provider [phone] Encounter Details Date Type Department Care Team (Latest Contact Info) Description 01/05/1999 Outpatient Historical [facility] Ear, Nose and Throat 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
--- OUTSIDE RECORDS SUMMARY | 2024-09-06 15:35 | XMS_ITS | Encounter Summary ---
Author Organization [facility] Address [address] [place] [address] Care Team Providers Care Advanced Manufacturing Technician Name Role Phone Zachary Milton MD Primary Care Provider [phone] Encounter Details Date Type Department Care Team (Latest Contact Info) Description 02/11/1999 Outpatient Historical [facility] Ear, Nose and Throat [address] [place] [phone] [facility] [address], [address] [place], [place] [address] Impacted cerumen (Primary Dx) Social History Tobacco Use Types Packs/Day Years Used Date Smoking Tobacco: Never Assessed Comments Unknown Sex and Gender Information Value Date Recorded Sex Assigned at Not on file Legal Sex Female 3:59 AM NUTRITION SERVICES AIDE Gender Identity Not on file Sexual Orientation Not on file documented as of this encounter Plan of Treatment Not on file documented as of this encounter Visit Diagnoses Diagnosis Impacted cerumen- Primary documented in this encounter Care Teams Advanced Manufacturing Technician Relationship Specialty Start Date End Date Zachary Milton MD [address] [place] [address] PCP - General Family Practice 08/10/10 documented as of this encounter
--- OUTSIDE RECORDS SUMMARY | 2024-09-06 15:35 | XMS_ITS | Encounter Summary ---
Author Organization [facility] Address [address] [place] [address] Care Team Providers Care Assistant Professor Of Geography Name Role Phone Zachary Milton MD Primary Care Provider [phone] Encounter Details Date Type Department Care Team (Latest Contact Info) Description 10/26/2004 Outpatient Historical [facility] [address] [place] [phone] Kennedy Roberts, EMBEDDED SOFTWARE PROGRAMMER [address] [place] [address] FEM PELV INFLAM DIS NOS (Primary Dx) Social History Tobacco Use Types Packs/Day Years Used Date Smoking Tobacco: Never Assessed Comments Unknown Sex and Gender Information Value Date Recorded Sex Assigned at Not on file Legal Sex Female 3:59 AM POPULATION 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
--- OUTSIDE RECORDS SUMMARY | 2024-09-06 15:35 | XMS_ITS | Encounter Summary ---
Author Organization [facility] Address [address] [place] [address] Care Team Providers Care Wallpaper Printer Helper Name Role Phone Zachary Milton MD Primary Care Provider [phone] Encounter Details Date Type Department Care Team (Latest Contact Info) Description 11/28/2004 Outpatient Historical [facility] Medicine [place] [address] [place] [phone] Sherie Humphries MD [address] [place] [phone] ABDOMINAL PAIN UNSPEC SITE (Primary Dx); DIARRHEA NOS; ABSENCE OF MENSTRUATION Social History Tobacco Use Types Packs/Day Years Used Date Smoking Tobacco: Never Assessed Comments Unknown Sex and Gender Information Value Date Recorded Sex Assigned at Not on file Legal Sex Female 3:59 AM CANE PUSHER Gender Identity Not on file Sexual Orientation Not on file documented as of this encounter Plan of Treatment Not on file documented as of this encounter Visit Diagnoses Diagnosis Abdominal pain, unspecified site- Primary Diarrhea Absence of menstruation documented in this encounter Care Teams Wallpaper Printer Helper Relationship Specialty Start Date End Date Zachary Milton MD [address] [place] [phone] PCP - General Family Practice 08/10/10 documented as of this encounter
--- OUTSIDE RECORDS SUMMARY | 2024-09-06 15:35 | XMS_ITS | Encounter Summary ---
Author Organization [facility] Address [address] [place] [address] Care Team Providers Care Preschool Director Name Role Phone Zachary Milton MD Primary Care Provider [phone] Encounter Details Date Type Department Care Team (Latest Contact Info) Description 09/08/2003 Outpatient Historical [facility] Medicine [place] [address], [place] [phone] Rancho Oliva MD [address] [place] [phone] ELEV BL PRES W/O HYPERTN (Primary Dx); ABNORMAL WEIGHT GAIN Social History Tobacco Use Types Packs/Day Years Used Date Smoking Tobacco: Never Assessed Comments Unknown Sex and Gender Information Value Date Recorded Sex Assigned at Not on file Legal Sex Female 3:59 AM WRAPPER SHEETER Gender Identity Not on file Sexual Orientation Not on file documented as of this encounter Plan of Treatment Not on file documented as of this encounter Visit Diagnoses Diagnosis Elevated blood pressure reading without diagnosis of hypertension- Primary Abnormal weight gain documented in this encounter Care Teams Preschool Director Relationship Specialty Start Date End Date Zachary Milton MD [address] [place] [phone] PCP - General Family Practice 08/10/10 documented as of this encounter
--- OUTSIDE RECORDS SUMMARY | 2024-09-06 15:35 | XMS_ITS | Encounter Summary ---
Author Organization [facility] Address [address] [place] [address] Care Team Providers Care Cath Lab Radiological Technologist Name Role Phone Zachary Milton MD Primary Care Provider Encounter Details Date Type Department Care Team (Latest Contact Info) Description 10/26/2004 Outpatient Historical [facility] [address] [place] [phone] Kennedy Roberts, ROLLING ATTENDANT [address] [place] [address] ROUTINE JUNIOR PROJECT COORDINATOR EXAMINATION (Primary Dx) Social History Tobacco Use Types Packs/Day Years Used Date Smoking Tobacco: Never Assessed Comments Unknown Sex and Gender Information Value Date Recorded Sex Assigned at Not on file Legal Sex Female 3:59 AM REGIONAL MAINTENANCE MANAGER Gender Identity Not on file Sexual Orientation Not on file documented as of this encounter Plan of Treatment Not on file documented as of this encounter Visit Diagnoses Diagnosis Routine gynecological examination- Primary documented in this encounter Care Teams Cath Lab Radiological Technologist Relationship Specialty Start Date End Date Zachary Milton MD [address] [place] [phone] PCP - General Family Practice 08/10/10 documented as of this encounter
--- OUTSIDE RECORDS SUMMARY | 2024-09-06 15:35 | XMS_ITS | Encounter Summary ---
Author Organization [facility] Address [address] [place] [address] Care Team Providers Care Accounting File Clerk Name Role Phone Zachary Milton MD Primary Care Provider [phone] Encounter Details Date Type Department Care Team (Latest Contact Info) Description 01/09/2005 Outpatient Historical [facility] Medicine [place] [address] [place] [phone] Kailee Dorsey, [facility] [address] [place] [phone] ACUTE PHARYNGITIS (Primary Dx); ABDOMINAL PAIN UNSPEC SITE; BIPOLAR - MOST RECENT EPISODE UNSPECIFIED (CMS/HCC); ABSENCE OF MENSTRUATION Social History Tobacco Use Types Packs/Day Years Used Date Smoking Tobacco: Never Assessed Comments Unknown Sex and Gender Information Value Date Recorded Sex Assigned at Not on file Legal Sex Female 3:59 AM SPEAKER MOUNTER Gender Identity Not on file Sexual Orientation Not on file documented as of this encounter Plan of Treatment Not on file documented as of this encounter Visit Diagnoses Diagnosis Acute pharyngitis- Primary Abdominal pain, unspecified site Bipolar I disorder, most recent episode (or current) unspecified (CMS/HCC) Bipolar I disorder, most recent episode (or current) unspecified Absence of menstruation documented in this encounter Care Teams Accounting File Clerk Relationship Specialty Start Date End Date Zachary Milton MD [address] [place] [phone] PCP - General Family Practice 08/10/10 documented as of this encounter
--- OUTSIDE RECORDS SUMMARY | 2024-09-06 15:35 | XMS_ITS | Encounter Summary ---
Author Organization [facility] Address [address] [place] [address] Care Team Providers Care Biomass Power Plant Superintendent Name Role Phone Zachary Milton MD Primary Care Provider [phone] Encounter Details Date Type Department Care Team (Latest Contact Info) Description 09/03/2003 Outpatient Historical [facility] [address], [place] [phone] Rancho Oliva MD [address], [place] [phone] Dysfunct eustachian tube (Primary Dx); GENERALIZED ANXIETY DIS; Gynecologic examination Social History Tobacco Use Types Packs/Day Years Used Date Smoking Tobacco: Never Assessed Comments Unknown Sex and Gender Information Value Date Recorded Sex Assigned at Not on file Legal Sex Female 3:59 AM CENTER MEDICAL DIRECTOR Gender Identity Not on file Sexual Orientation Not on file documented as of this encounter Plan of Treatment Not on file documented as of this encounter Visit Diagnoses Diagnosis Dysfunct eustachian tube- Primary Dysfunction of Eustachian tube Generalized anxiety disorder Gynecologic examination Gynecological examination documented in this encounter Care Teams Biomass Power Plant Superintendent Relationship Specialty Start Date End Date Zachary Milton MD [address] [place] [phone] PCP - General Family Practice 08/10/10 documented as of this encounter
--- OUTSIDE RECORDS SUMMARY | 2024-09-06 15:35 | XMS_ITS | Encounter Summary ---
Author Organization [facility] Address [address] [place] [address] Care Team Providers Care Technical Sales Support Specialist Name Role Phone Zachary Milton MD Primary Care Provider [phone] Encounter Details Date Type Department Care Team (Late st Contact Info) Description 04/10/2004 Outpatient Historical [facility] [address] [place] [address] AMBULANCE, [facility] Social History Tobacco Use Types Packs/Day Years Used Date Smoking Tobacco: Never Assessed Comments Unknown Sex and Gender Information Value Date Recorded Sex Assigned at Not on file Legal Sex Female 3:59 AM TOWNSHIP SUPERVISOR Gender Identity Not on file Sexual Orientation Not on file documented as of this encounter Plan of Treatment Not on file documented as of this encounter Visit Diagnoses Not on filedocumented in this encounter Care Teams Technical Sales Support Specialist Relationship Specialty Start Date End Date Zachary Milton MD [address] [place] [phone] PCP - General Family Practice 08/10/10 documented as of this encounter
--- OUTSIDE RECORDS SUMMARY | 2024-09-06 15:35 | XMS_ITS | Encounter Summary ---
Author Organization [facility] Address [address] [place] [address] Care Team Providers Care Sales Representative Publications Name Role Phone Zachary Milton MD Primary Care Provider [phone] Encounter Details Date Type Department Care Team (Latest Contact Info) Description 01/12/2005 Outpatient Historical [facility] Medicine [place] [address] [place] [phone] Kailee Dorsey, [facility] [address] [place] [address] [phone] ACUTE FRONTAL SINUSITIS (Primary Dx) Social History Tobacco Use Types Packs/Day Years Used Date Smoking Tobacco: Never Assessed Comments Unknown Sex and Gender Information Value Date Recorded Sex Assigned at Not on file Legal Sex Female 3:59 AM BORING MACHINE OPERATOR HORIZONTAL Gender Identity Not on file Sexual Orientation Not on file documented as of this encounter Plan of Treatment Not on file documented as of this encounter Visit Diagnoses Diagnosis Acute frontal sinusitis- Primary documented in this encounter Care Teams Sales Representative Publications Relationship Specialty Start Date End Date Zachary Milton MD [address] [place] [phone] PCP - General Family Practice 08/10/10 documented as of this encounter
--- OUTSIDE RECORDS SUMMARY | 2024-09-06 15:35 | XMS_ITS | Encounter Summary ---
Author Organization [facility] Address [address] [place] [address] Care Team Providers Care Push Bench Operator Helper Name Role Phone Zachary Milton MD Primary Care Provider [phone] Encounter Details Date Type Department Care Team (Late st Contact Info) Description 08/12/2014 Nurse Triage Report [id number] ABSTRACTION Carol Landeros, RN Social History Tobacco Use Types Packs/Day Years Used Date Smoking Tobacco: Former Cigarettes 0 09/12/1999 - 09/11/2009 Smokeless Tobacco: Never Comments:Occassionaly Alcohol Use Standard Drinks/Week Comments No 0 (1 standard drink = 0.6 oz pure alcohol) Stopped drinking when she was 25 yo Comments Yes Sex and Gender Information Value Date Recorded Sex Assigned at Not on file Legal Sex Female 3:59 AM MANAGER CLIENT Gender Identity Not on file Sexual Orientation Not on file Occupation Industry Job Start Date Job End Date Not on file Not on file Not on file Not on file documented as of this encounter Progress Notes * Carol Landeros, RN - 08/12/2014 8:32 AM CDT CHART DOCUMENTATION ONLY Call Type: Triage Call Addendum Date and Time [id number] Presenting Problem: I am 27 weeks and I am having cramping. per RN report feedback to [facility] Sun[facility] Associated Symptoms: cramping, pelvis pain that radiates into back. Last BM 24 hours ago. Cramping is constant. Onset: 16 hours ago Location: Vag Treatment so far for current presenting problem: trying to rest History (Clinical Problems): gestational DM OB: Are you having contractions 5 minutes apart for 1 hour? yes OB: Are you leaking any fluid vaginally? no OB: Are you having any vaginal bleeding? (Indicate color and amount) no OB: Is your baby moving normally? not as active this AM Medications: zantac Medication reactions: PCN <<<<<<<< TRIAGE NOTE >>>>>>>> Triage Note: Patient Registration Rep Carol Landeors added this note on Aug 12 2014 8:32AM: Did transfer pt to L & D as her physicians office staff were in a mtg and unavailable. <<<<<<<< TRIAGE/OUTCOME >>>>>>>> Guideline Title: : Labor, 20 to 37 Weeks Recommended Disposition: Call Provider Immediately Original Inclination: Call Provider/See in 24 Intended Action: Call or See Provider within 24 hrs Physician Contacted: No Constant or intermittent low back, abdominal pain or menstrual-like cramping lasting 1 hour or more ? YES documented in this encounter Plan of Treatment Not on file documented as of this encounter Visit Diagnoses Not on filedocumented in this encounter Care Teams Push Bench Operator Helper Relationship Specialty Start Date End Date Zachary Milton MD [address] [place] [phone] PCP - General Family Practice 08/10/10 documented as of this encounter
--- OUTSIDE RECORDS SUMMARY | 2024-09-06 15:35 | XMS_ITS | Encounter Summary ---
Author Organization [facility] Address [address] [place] [address] Care Team Providers Care Street Cleaner Name Role Phone Zachary Milton MD Primary Care Provider [phone] Encounter Details Date Type Department Care Team (Latest Contact Info) Description 11/25/2004 Outpatient Historical [facility] Medicine [place] [address] [place] [phone] Kailee Dorsey, [facility] [address] [place] [phone] ABDOMINAL PAIN RUQ (Primary Dx); ABDOMINAL PAIN RLQ; DIARRHEA NOS; ABSENCE OF MENSTRUATION Social History Tobacco Use Types Packs/Day Years Used Date Smoking Tobacco: Never Assessed Comments Unknown Sex and Gender Information Value Date Recorded Sex Assigned at Not on file Legal Sex Female 3:59 AM DRAINAGE DESIGN COORDINATOR Gender Identity Not on file Sexual Orientation Not on file documented as of this encounter Plan of Treatment Not on file documented as of this encounter Visit Diagnoses Diagnosis Abdominal pain, right upper quadrant- Primary Abdominal pain, right lower quadrant Diarrhea Absence of menstruation documented in this encounter Care Teams Street Cleaner Relationship Specialty Start Date End Date Zachary Milton MD [address] [place] [phone] PCP - General Family Practice 08/10/10 documented as of this encounter
--- OUTSIDE RECORDS SUMMARY | 2024-09-06 15:35 | XMS_ITS | Encounter Summary ---
Author Organization [facility] Address [address] [place] [address] Care Team Providers Care Shingle Cutter Name Role Phone Zachary Milton MD Primary Care Provider [phone] Encounter Details Date Type Department Care Team (Latest Contact Info) Description 09/03/2003 Outpatient Historical [facility] Medicine [place] [address], [place] [phone] Rancho Oliva MD [address], [place] [phone] GYNECOLOGIC EXAMINATION (Primary Dx) Social History Tobacco Use Types Packs/Day Years Used Date Smoking Tobacco: Never Assessed Comments Unknown Sex and Gender Information Value Date Recorded Sex Assigned at Not on file Legal Sex Female 3:59 AM SKIING TEACHER Gender Identity Not on file Sexual Orientation Not on file documented as of this encounter Plan of Treatment Not on file documented as of this encounter Visit Diagnoses Diagnosis Gynecological examination- Primary documented in this encounter Care Teams Shingle Cutter Relationship Specialty Start Date End Date Zachary Milton MD [address] [place] [phone] PCP - General Family Practice 08/10/10 documented as of this encounter
--- OUTSIDE RECORDS SUMMARY | 2024-09-06 15:35 | XMS_ITS | Encounter Summary ---
Author Organization [facility] Address [address] [place] [address] Care Team Providers Care Director Of Business Operations Name Role Phone Zachary Milton MD Primary Care Provider Encounter Details Date Type Department Care Team (Late st Contact Info) Description 11/10/1998 Outpatient Historical [facility] [address] [place] [phone] Social History Tobacco Use Types Packs/Day Years Used Date Smoking Tobacco: Never Assessed Comments Unknown Sex and Gender Information Value Date Recorded Sex Assigned at Not on file Legal Sex Female 3:59 AM INTERN Gender Identity Not on file Sexual Orientation Not on file documented as of this encounter Plan of Treatment Not on file documented as of this encounter Visit Diagnoses Not on filedocumented in this encounter Care Teams Director Of Business Operations Relationship Specialty Start Date End Date Zachary Milton MD [address] [place] [phone] PCP - General Family Practice 08/10/10 documented as of this encounter
--- OUTSIDE RECORDS SUMMARY | 2024-09-06 15:35 | XMS_ITS | Encounter Summary ---
Author Organization [facility] Address [address] [place] [address] Care Team Providers Care Engineer Operations And Maintenance Name Role Phone Zachary Milton MD Primary Care Provider [phone] Reason for Referral * Outpatient Services (Routine) - Closed Specialty Diagnoses / Procedures Referred By Tara gauthier Referred To Contact Radiology Diagnoses Encounter for routine screening for malformation using ultrasonics Procedures US OB 14+ WKS + TV CERV LENGTH US OB 14+ WKS SINGLE GEST Kailee Dorsey FNP [address] [place] [phone] Phone: tel: fax: [facility] Lukas [place] [address] [place] [address] Phone: tel: fax: Referral ID Status Reason Start Date Expiration Date Visits Re quested Visits Authorized [id number] Closed 07/08/2014 08/08/2015 1 1 Encounter Details Date Type Department Care Team (Latest Contact Info) Description 07/08/2014 Ancillary Orders [facility] Family Medicine [place] [address] [place] [phone] Kailee Dorsey FNP [address] [place] [phone] Supervision of other normal , second trimester (Primary Dx); Encounter for routine screening for malformation using ultrasonics Social History Tobacco Use Types Packs/Day Years Used Date Smoking Tobacco: Former Cigarettes 0 09/12/1999 - 09/11/2009 Smokeless Tobacco: Never Comments:Occassionaly Alcohol Use Standard Drinks/Week Comments No 0 (1 standard drink = 0.6 oz pure alcohol) Stopped drinking when she was 25 yo Comments Yes Sex and Gender Information Value Date Recorded Sex Assigned at Not on file Legal Sex Female 3:59 AM 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 Limited visualization There are no obvious anomalies but the morphology assessment is incomplete. Recommend follow up study in 4 weeks to complete the morphology assessment. COMMENTS: The standard criteria put forth by the [place] [employer] in [employer] (AIUM) are not met. Tech: Vida Patel RDMS Narrative 07/08/2014 12:58 PM CDT OBSTETRICAL ULTRASOUND REPORT Requested by: Kailee Dorsey FNP Indication(s): Morphology CPT: 31082 - Complete OB Ultrasound DESCRIPTION Number: escalera Presentation: Cephalic Heart Rate: 148 bpm Amniotic Fluid: Appears normal CARI: (8.9-23.5 cm) Placenta: posterior Grade: II Uterus/cervix: unremarkable Right Adnexa: unremarkable Left Adnexa: unremarkable Cul-de-sac: unremarkable BIOMETRY Measurement Reference BPD: 5.5 cm (5.0-5.9 cm) (Snijders) HC: 19.3 cm (18.3-21.9 cm) (Hadlock) AC: 17.2 cm (15.1-19.7 cm) (Hadlock) FL: 3.8 cm (3.2-4.1 cm) (Shala) HL: 3.6 cm (3.1-3.9 cm) (Shala) Composite GA: 22w2d Ultrasound EDC: 11/09/14 LMP: 01/05/14 EDC by prior u/s: 11/10/14 Selected EDC: 11/10/14 EGA: 22w1d ANATOMY TABLE Normal Abnormal Not Adequately Visualized Previously Documented Structure Comments Nuchal Skin y Cavum Septa Pellucida* ns Choroid Plexus* y Lateral Ventricle* y 0.6 cm Midline Falx* y Cerebellum* y Cisterna Magna* y 0.7 cm Face* y Spine* ns 4 Chamber Heart* ns LVOT ns RVOT ns Abdominal Wall* y Cord Insertion* y Cord Vessels* y Stomach* y Kidneys* ns Bladder* y Gender y 4 Extremities* y male AIUM Criteria (*) ns us Kailee Dorsey CLOSET BUILDER US ORDERABLES Final Result documented in this encounter Visit Diagnoses Diagnosis Supervision of other normal , second trimester- Primary Encounter for routine screening for malformation using ultrasonics documented in this encounter Care Teams Engineer Operations And Maintenance Relationship Specialty Start Date End Date Zachary Milton MD [address] [place] [phone] PCP - General Family Practice 08/10/10 documented as of this encounter
--- OUTSIDE RECORDS SUMMARY | 2024-09-06 15:35 | XMS_ITS | Encounter Summary ---
Author Organization [facility] Address [address] [place] [address] Care Team Providers Care Legal Adviser Name Role Phone Zachary Milton MD Primary Care Provider Encounter Details Date Type Department Care Team (Latest Contact Info) Description 05/02/2005 Outpatient [facility] [address] [phone] Carol Aguiar MD [address] [place] [address] POLYCYSTIC OVARIES (Primary Dx); ACUTE FRONTAL SINUSITIS; ACUTE BRONCHITIS Social History Tobacco Use Types Packs/Day Years Used Date Smoking Tobacco: Never Assessed Comments Unknown Sex and Gender Information Value Date Recorded Sex Assigned at Not on file Legal Sex Female 3:59 AM BOW REHAIRER Gender Identity Not on file Sexual Orientation Not on file documented as of this encounter Plan of Treatment Not on file documented as of this encounter Visit Diagnoses Diagnosis Polycystic ovaries- Primary Acute frontal sinusitis Acute bronchitis documented in this encounter Care Teams Legal Adviser Relationship Specialty Start Date End Date Zachary Milton MD [address] [place] [phone] PCP - General Family Practice 08/10/10 documented as of this encounter
--- OUTSIDE RECORDS SUMMARY | 2024-09-06 15:35 | XMS_ITS | Encounter Summary ---
Author Organization [facility] Address [address] [place] [address] Care Team Providers Care Patternmaker Hand Name Role Phone Zachary Milton MD Primary Care Provider [phone] Encounter Details Date Type Department Care Team (Latest Contact Info) Description 05/22/2005 Outpatient [facility] [address] [phone] Carol Aguiar MD [address] [place] [address] Unspecified Symptom Associated with Female Genital Organs (Primary Dx); Fever; Other Diseases of Nasal Cavity and Sinuses Social History Tobacco Use Types Packs/Day Years Used Date Smoking Tobacco: Never Assessed Comments Unknown Sex and Gender Information Value Date Recorded Sex Assigned at Not on file Legal Sex Female 3:59 AM TUBE CUTTER Gender Identity Not on file Sexual Orientation Not on file documented as of this encounter Plan of Treatment Not on file documented as of this encounter Visit Diagnoses Diagnosis Unspecified symptom associated with female genital organs- Primary Fever and other physiologic disturbances of temperature regulation Nasal/sinus dis NEC Other diseases of nasal cavity and sinuses documented in this encounter Care Teams Patternmaker Hand Relationship Specialty Start Date End Date Zachary Milton MD [address] [place] [address] PCP - General Family Practice 08/10/10 documented as of this encounter
--- OUTSIDE RECORDS SUMMARY | 2024-09-06 15:35 | XMS_ITS | Encounter Summary ---
Author Organization [facility] Address [address] [place] [address] Care Team Providers Care Commercial Sales Manager Name Role Phone Zachary Milton MD Primary Care Provider [phone] Encounter Details Date Type Department Care Team (Latest Contact Info) Description 02/02/2005 Outpatient Historical [facility] [place] [address] [place] [phone] Kailee Dorsey, [facility] [address] [place] [phone] STRESS REACT, EMOTIONAL (Primary Dx) Social History Tobacco Use Types Packs/Day Years Used Date Smoking Tobacco: Never Assessed Comments Unknown Sex and Gender Information Value Date Recorded Sex Assigned at Not on file Legal Sex Female 3:59 AM MACHINE INKER Gender Identity Not on file Sexual Orientation Not on file documented as of this encounter Plan of Treatment Not on file documented as of this encounter Visit Diagnoses Diagnosis Predominant disturbance of emotions- Primary documented in this encounter Care Teams Commercial Sales Manager Relationship Specialty Start Date End Date Zachary Milton MD [address] [place] [phone] PCP - General Family Practice 08/10/10 documented as of this encounter
--- OUTSIDE RECORDS SUMMARY | 2024-09-06 15:35 | XMS_ITS | Encounter Summary ---
Author Organization [facility] Address [address] [place] [address] Care Team Providers Care Scientific Publications Editor Name Role Phone Zachary Milton MD Primary Care Provider [phone] Encounter Details Date Type Department Care Team (Latest Contact Info) Description 11/10/1998 Outpatient Historical [facility] 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
--- OUTSIDE RECORDS SUMMARY | 2024-09-06 15:36 | XMS_ITS | Clinical Summary ---
Author Organization [facility] Address [address] [place] [address] Care Team Providers Care Cream Buyer Name Role Phone Zachary Milton MD Primary Care Provider [phone] Allergies Active Allergy Reactions Criticality Noted Date Comments Amoxicillin-Pot Clavulanate Hives,Shortn ess of Breath/Wheezing,Swelling High 12/02/2007 Cefuroxime Axetil Shortness of Breath/Wheezing High 12/22/2010 Clindamycin Hives,Shortness of Breath/Wheezing High 10/30/2016 Latex Hives High 10/17/2016 Penicillins Shortness of Breath/Wheezing High 06/13/2016 Medications acetaminophen (TYLENOL) 325 mg tablet Take 650 mg by mouth every 4 hours as needed. Active hydrOXYzine HCl (ATARAX) 50 mg tablet TAKE 1 TABLET (50 MG) BY MOUTH EVERY 6 HOURS NEEDED FOR ANXIETY, INSOMNIA OR (BACK SPASMS). 50 Tablet 2 9 Active albuterol HFA 90 mcg inhalerIndicatio ns:Wheezing Take 2 Puffs by inhalation every 4 hours as needed for Shortness of Breath or Wheezing (cough). With microchamber to use with it. 18 Gram 2 0 Active albuterol (PROVENTIL,MANOJ MAYI) 2.5 mg /3 mL (0.083 %) Solution for NebulizationIndi cations:Wheezing Take 3 mL (2.5 mg) by inhalation every 4 hours as needed for Shortness of Breath or Wheezing. 90 mL 2 0 Active Nebulizer & Compressor For Neb DeviceIndication s:Wheezing,Mild intermittent asthma with acute exacerbation For use with albuterol 1 Each 0 Active fluconazole (DIFLUCAN) 150 mg tabletIndication s:Vaginal discharge Take 1 Tablet (150 mg) by mouth one time as needed (yeast). 1 Tablet 1 Active fluconazole (DIFLUCAN) 150 mg tablet Take 1 Tablet (150 mg) by mouth one time as needed (yeast). 1 Tablet 1 Active HYDROcodone-acet aminophen (NORCO) 5-325 mg tabletIndication s:Migraine without status migrainosus, not intractable, unspecified migraine type TAKE ONE TABLET BY MOUTH EVERY 6 HOURS NEEDED FOR HEADACHE 28 Tablet 1 Active fluticasone propionate (FLONASE) 50 mcg/spray Cornell, Suspension nasal inhaler Administer 2 Sprays in each nostril daily. 16 Gram 2 1 Active Active Problems Problem Noted Date Diagnosed Date History of gestational diabetes 09/08/2016 Chronic hypertension in 07/24/2016 Positive GBS test 07/21/2016 Morbid obesity 10/30/2014 Constipation 08/14/2014 Left shoulder pain 08/05/2014 Relationship problem between partners 05/03/2012 Supervision of normal 03/08/2012 Mood disorder 02/12/2012 History of delivery 01/15/2012 Overview (07/24/2016): x 1, x 2, Desires Previous complicat ed by -induced hypertension, antepartum 01/15/2012 Resolved Problems Problem Noted Date Diagnosed Date Resolved Date Abdominal pain, acute, right upper quadrant 08/30/2017 05/23/2018 Elderly multigravida in second trimester 07/16/2016 05/23/2018 Supervision of high risk pre gnancy, antepartum 10/30/2014 05/23/2018 Gestational diabetes mellitus, antepartum 05/09/2012 05/23/2018 History of maternal group B Streptococcus affected , currently 01/15/2012 Overview (06/12/2012): Patient states baby transported to [facility] d/t breathing problems. Review of child's chart shows prophylactic abx were given x 48 hrs but blood cx neg. No evidence of GBBS infection in that baby. Patient's screening swab was positive in that . It is negative in this . There is no indication for GBBS prophylaxis at this time. Desires (vaginal after ) trial 01/15/2012 07/24/2016 confirmed 11/12/2009 05/24/19 19 Immunizations Immunization Administration Dates Next Due (ADACEL/BOOSTRIX)(10 YR UP) TDAP VACCINE, 0.5ML, IM 07/27/2016,11/01/2014 (M-M-R II/PRIORIX)(12 MO UP) MEASLES, MUMPS AND RUBELLA VIRUS VACCINE, 0.5 ML IM/SUBCUT 06/15/2012 (TDVAX)(7 YRS UP) TETANUS AN D DIPHTHERIA TOXOIDS, ADSORBED (2 LF OF TETANUS TOXOID AND 2 LF OF DIPHTHERIA TOXOID), 0.5ML (PF), IM 04/10/2004 Influenza Seasonal Unspecified Formulation IM ,07/27/2016 Family History Medical History Relation Name Comments Healthy Brother Healthy Daughter 1 Healthy Daughter 2 Diabetes Father Heart Disease Father High Cholesterol Father Hypertension Father Arthritis-rheumatoid Maternal Grandfather Heart Disease Maternal Grandfather High Cholesterol Maternal Grandfather Hypertension Maternal Grandfather Lung Cancer Maternal Grandfather Arthritis-rheumatoid Maternal Grandmother Hypertension Maternal Grandmother Hypertension Mother Diabetes Other Uncle Heart Disease Other Uncle High Cholesterol Other Uncle Hypertension Other Uncle Liver Disease Other Uncle Arthritis-rheumatoid Paternal Grandfather Heart Disease Paternal Grandfather High Cholesterol Paternal Grandfather Hypertension Paternal Grandfather Arthritis-rheumatoid Paternal Grandmother Diabetes Paternal Grandmother Heart Disease Paternal Grandmother High Cholesterol Paternal Grandmother Hypertension Paternal Grandmother Thyroid Disease Paternal Grandmother Healthy Son 1 Healthy Son 2 Relation Name Status Comments Brother Alive Daughter 1 Alive Daughter 2 Alive Father Alive Maternal Grandfather Maternal Grandmother Alive Mother Alive Other Uncle Alive Paternal Grandfather Paternal Grandmother Alive Son 1 Alive Son 2 Alive Social History Tobacco Use Types Packs/Day Years Used Date Smoking Tobacco: Former Cigarettes 0 09/12/1995 - 09/11/2005 Smokeless Tobacco: Never Alcohol Use Standard Drinks/Week Comments No 0 (1 standard drink = 0.6 oz pure alcohol) Stopped drinking when she was 25 yo Comments No Sex and Gender Information Value Date Recorded Sex Assigned at Not on file 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 Gender Identity Not on file Sexual Orientation Not on file Occupation Industry Job Start Date Job End Date Not on file Not on file Not on file Not on file Last Filed Vital Signs Vital Sign Reading Time Taken Comments Blood Pressure 126/76 08/04/2020 9:41 AM CDT Pulse 84 08/04/2020 9:41 AM CDT Temperature 36.8 C (98.2 F) 08/04/2020 9:41 AM CDT Respiratory Rate 16 08/04/2020 9:41 AM CDT Oxygen Saturation 99% 08/04/2020 9:41 AM CDT Room Air Inhaled Oxygen Concentration - - Weight 124.7 kg (275 lb) 08/04/2020 9:41 AM CDT Height 170.2 cm (5' 7 ) 08/04/2020 9:41 AM CDT Body Mass Index 43.07 08/04/2020 9:41 AM CDT Plan of Treatment Health Maintenance Due Date Last Done Comments HEPATITIS B VACCINES (1 of 3 - 19+ 3-dose series) 07/23/1999 Preventative Visit-Managed Medicaid 07/23/1999 HPV/Cotest (21-29) 08/19/2015 08/18/2010 HPV/Cotest (30-65) 08/19/2015 08/18/2010 CERVICAL CANCER SCREENING 08/05/2017 PAP SMEAR 08/05/2017 08/05/2014, 01/15/2012, 08/18/2010 BREAST CANCER SCREENING 2020 Pre-Diabetes and Diabetes Screening 08/30/2020 08/30/2017, 05/11/2016 INFLUENZA VACCINE (#1) 2024 9, 02/02/2018, 07/27/2016 DTAP/TDAP/TD VACCINES (3 - T d or Tdap) 07/27/2026 07/27/2016, 11/01/2014, 04/10/2004 HPV VACCINES Aged Out No longer eligi ble based on patient's age to complete this topic Procedures Procedure Name Priority Date/Time Associated Diagnosis Comments HEMOGLOBIN A1C Routine 08/30/2017 11:31 AM CDT History of gestational diabetes CERV/VAG CYTOPATH, THIN PREP TEST OPERATOR Routine 08/05/2014 2:22 PM CDT CERV/VAG CYTOPATH, THIN PREP W/RFLX HPV Routine 08/18/2010 8:53 AM CDT from Last 3 Months or Most Recently Relevant to Health Maintenance Results * HEMOGLOBIN A1C (08/30/2017 11:31 AM CDT) Pathologist [facility] HEMOGLOBIN A1C 5.5 4.0 - 6.0 % 08/30/2017 9:45 PM CDT [facility] EST. AVG GLUCOSE, A1C 111 mg/dL 08/30/2017 9:45 PM CDT [facility] Blood Venipuncture / Unknown 08/30/2017 11:31 AM CDT 08/30/2017 8:21 PM CDT Narrative [facility] - 08/30/2017 9:45 PM CDT HGB A1C INTERPRETATION NORMAL: <5.7% PRE-DIABETES: 5.7 - 6.4% DIABETES: 6.5% OR GREATER Falsely low A1C measurements can occur when: 1. Anemia and/or hemolytic anemia is present. 2. Hemoglobin variants present. 3. Renal failure. 4. Transfusion of blood product in the last 120 days. We recommend ordering a fructosamine test(CDE0112) to more accurately assess glycemic status if any of the above conditions are present. Kailee Dorsey WATER SOFTENER INSTALLER CHEMISTRY ORDERABLES Final Re sult [facility] CLIA# [id number] [address] [place] [address] * CERV/VAG CYTOPATH, THIN PREP TEST OPERATOR (08/05/2014 2:22 PM CDT) PATHOLOGY/PIETRO ROSS REPORT [facility] Anatomic Pathology Dept [address] [facility] [address] Patient: JIMMIE GARCÍA Accn No: [id number] , [id number] Collected: 08/05/2014 2:22:00 PM All cases except those with a DP prefix are performed by pathologists from [facility] at [facility]. Case type DP is performed by Dr. Oscar Riggs, [facility], [facility] [place], [address], [address], [place] [address] (CLIA #[id number]) (Ph. [phone]). CYTOLOGY SAP DATA ARCHITECT FINAL REPORT - - TEST OPERATOR PAP History Specimen Type: Endocervical Previous Pap History: None Provided Specimen Adequacy Satisfactory for interpretation. The smear lacks endocervical or metaplastic cells. Diagnosis NEGATIVE FOR INTRAEPITHELIAL LESION OR MALIGNANCY. (Previously noted as Within Normal Limits) Tray Filler/ CHUY Pathologist: 08/19/14 Completed by: STEFANY VASQUEZ BSCT(ASCP) (Electronically signed by) 08/19/14 Comment Routine follow-up is suggested. Important Information About Pap Smears The Pap smear is associated with a low but well-documented and probably irreducible false negative rate of up to 10%. Additionally, the false positive rate for a diagnosis of invasive carcinoma or HSIL has been estimated to be approximately 1-10%. Therefore, any visible lesion on the cervix should be biopsied regardless of Pap smear findings. HPV Testing off the Thin Prep vial can be done as a means of further evaluating a Thin Prep Report. For information about ordering the HPV test, phone Virology at . Treatment or follow-up recommendations (if any) that are contained within this report are based upon general recommendations as contained in 2001 Consensus Guidelines For Cervical Cytological Abnormalities FLAVIO: June 26, 2001, and are provided as a general guideline rather than as a specific recommendation. Final decisions about the most appropriate treatment and follow-up should be made on an individualized basis by the treating physician in consultation with his/her patient. [facility] 08/05/2014 2:22 PM CDT Kailee SAGASTUMEP PATHOLOGY/CYTOLOGY ORDERABLES Edited Result - Final [facility] CLIA# [id number] [address] [place] [address] * CERV/VAG CYTOPATH, THIN PREP W/RFLX HPV (08/18/2010 8:53 AM CDT) TH THIN PREP CYTOLOGY REPORT REFLEX HPV [facility] Anatomic Pathology Dept [address] [facility] [address] Patient: JIMMIE GARCÍA Accn No: [id number] , [id number] Collected: 08/18/2010 8:53:00 AM All cases except those with a DP prefix are performed by pathologists from [facility]. Case type DP is performed by Dr. Oscar Riggs, [facility], [facility], [address], [place] [address] (CLIA #[id number]) (Ph. [phone]). THIN PREP PAP - REFLEX HPV History Specimen Type: Endocervical LMP: 611 Post- Previous Pap History: None Provided Specimen Adequacy Satisfactory for interpretation. Shows sufficient numbers of endocervical or metaplastic cells. Diagnosis NEGATIVE FOR INTRAEPITHELIAL LESION OR MALIGNANCY. (Prevously noted as Within Normal Limits). Tray Filler/ CATIAM Pathologist: 08/25/10 Completed by: STEFANY VASQUEZ(ASCP) (Electronically signed by) 08/25/10 Comment Routine follow-up is suggested. Important Information About Pap Smears The Pap smear is associated with a low but well-documented and probably irreducible false negative rate of up to 10%. Additionally, the false positive rate for a diagnosis of invasive carcinoma or HSIL has been estimated to be approximately 1-10%. Therefore, any visible lesion on the cervix should be biopsied regardless of Pap smear findings. HPV Testing off the Thin Prep vial can be done as a means of further evaluating a Thin Prep Report. For information about ordering the HPV test, phone Virology at . Treatment or follow-up recommendations (if any) that are contained within this report are based upon general recommendations as contained in 2001 Consensus Guidelines For Cervical Cytological Abnormalities FLAVIO: June 26, 2001, and are provided as a general guideline rather than as a specific recommendation. Final decisions about the most appropriate treatment and follow-up should be made on an individualized basis by the treating physician in consultation with his/her patient. [facility] 08/18/2010 8:53 AM CDT us Kailee Dorsey WATER SOFTENER INSTALLER PATHOLOGY/CYTOLOGY ORDERABLES Edited INTERFACE SYSTEM Refer to clinic/hospital department [facility] CLIA# [id number] [address] [place] [address] from Last 3 Months or Most Recently Relevant to Health Maintenance [place] [address] [address] HEALTH PLAN [facility] Advance Directives For more information, please contact: [phone] * Full Code (Latest Code Status on File) Date Activated Date Inactivated Comments 10/18/2016 3:29 AM 10/20/2016 3:52 PM * Full Code Date Activated Date Inactivated Comments 10/17/2016 6:15 PM 10/18/2016 3:29 AM * Full Code Date Activated Date Inactivated Comments 10/17/2016 9:51 AM 10/17/2016 6:15 PM * Full Code Date Activated Date Inactivated Comments 10/15/2016 4:00 PM 10/15/2016 7:43 PM * Full Code Date Activated Date Inactivated Comments 07/26/2016 3:57 PM 07/26/2016 6:53 PM Care Teams Cream Buyer Relationship Specialty Start Date End Date Zachary Milton MD [address] [place] [phone] PCP - General Family Practice 08/10/10
--- OUTSIDE RECORDS SUMMARY | 2024-09-06 15:36 | XMS_ITS | Encounter Summary ---
Author Organization [facility] Address [address] [place] [address] Care Team Providers Care Head Bellhop Captain Name Role Phone Zachary Milton MD Primary Care Provider [phone] Encounter Details Date Type Department Care Team (Latest Contact Info) Description 09/28/2006 Outpatient Historical [facility] Medicine [place] [address] [place] [phone] Kailee Dorsey, [facility] [address] [place] [phone] Gonococcal Infection of Other Specified Sites (Primary Dx) Social History Tobacco Use Types Packs/Day Years Used Date Smoking Tobacco: Never Assessed Comments Unknown Sex and Gender Information Value Date Recorded Sex Assigned at Not on file Legal Sex Female 3:59 AM PRIEST Gender Identity Not on file Sexual Orientation Not on file documented as of this encounter Plan of Treatment Not on file documented as of this encounter Visit Diagnoses Diagnosis Gonococcal infection of other specified sites(098.89)- Primary Gonococcal infection of other specified sites documented in this encounter Care Teams Head Bellhop Captain Relationship Specialty Start Date End Date Zachary Milton MD [address] [place] [phone] PCP - General Family Practice 08/10/10 documented as of this encounter
--- OUTSIDE RECORDS SUMMARY | 2024-09-06 15:36 | XMS_ITS | Encounter Summary ---
Author Organization [facility] Address [address] [place] [address] Care Team Providers Care Statistical Financial Analyst Name Role Phone Zachary Milton MD Primary Care Provider [phone] Encounter Details Date Type Department Care Team (Latest Contact Info) Description 05/25/2005 Outpatient [facility] Family Medicine[address] [phone] Carol Aguiar MD [address] [place] [address] Unspecified Symptom Associated with Female Genital Organs (Primary Dx); Menstrual Disorder NEC; Nonspecific Abnormal Results of Liver Function Study Social History Tobacco Use Types Packs/Day Years Used Date Smoking Tobacco: Never Assessed Comments Unknown Sex and Gender Information Value Date Recorded Sex Assigned at Not on file 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 Gender Identity Not on file Sexual Orientation Not on file documented as of this encounter Plan of Treatment Not on file documented as of this encounter Visit Diagnoses Diagnosis Unspecified symptom associated with female genital organs- Primary Other disorder of menstruation and other abnormal bleeding from female genital tract Nonspecific abnormal results of liver function study documented in this encounter Care Teams Statistical Financial Analyst Relationship Specialty Start Date End Date Zachary Milton MD [address] [place] [address] PCP - General Family Practice 08/10/10 documented as of this encounter
--- OUTSIDE RECORDS SUMMARY | 2024-09-06 15:36 | XMS_ITS | Encounter Summary ---
Author Organization [facility] Address [address] [place] [address] Care Team Providers Care Supervisor Partial Denture Department Name Role Phone Zachary Milton MD Primary Care Provider [phone] Encounter Details Date Type Department Care Team (Latest Contact Info) Description 05/25/2005 Outpatient [facility] [address] [phone] Carol Aguiar MD [address] [place] [address] Other Abnormal Clinical Finding (Primary Dx) Social History Tobacco Use Types Packs/Day Years Used Date Smoking Tobacco: Never Assessed Comments Unknown Sex and Gender Information Value Date Recorded Sex Assigned at Not on file Legal Sex Female 3:59 AM CHUTE WORKER Gender Identity Not on file Sexual Orientation Not on file documented as of this encounter Plan of Treatment Not on file documented as of this encounter Procedures Procedure Name Priority Date/Time Associated Diagnosis Comments ACUTE HEPATITIS PANEL Routine 05/25/2005 10:08 AM CHUTE WORKER documented in this encounter Results * ACUTE HEPATITIS PANEL (05/25/2005 10:08 AM CHUTE WORKER) HEPATITIS B SURFACE AG Negative Negative INTERFACE SYSTEM HEPATITIS B CORE IGM Negative Negative INTERFACE SYSTEM HEPATITIS A IGM Negative Negative INTE RFACE SYSTEM HEPATITIS C AB Negative Negative INTER FACE SYSTEM Comment: HCV antibody testing is performed by E.I.A. methodology. CDC recommends positive HCV antibody tests have confirmation testing. Low positive results should be confirmed with RIBA. This will determine if results are false positive. If a high positive result is obtained an HCV RNA may be run. The RNA test confirms infection and the level of the RNA, to some extent, helps guide treatment. The patient's specimen will be retained for 7 days. Please contact the Immunology Laboratory if a RIBA or HCV RNA is desired. 05/25/2005 10:0 8 AM CHUTE WORKER us Carol Aguiar MD CHEMISTRY ORDERABLES Final R esult INTERFACE SYSTEM Refer to clinic/hospital department documented in this encounter Visit Diagnoses Diagnosis Other abnormal clinical finding- Primary documented in this encounter Care Teams Supervisor Partial Denture Department Relationship Specialty Start Date End Date Zachary Milton MD [address] [place] [address] PCP - General Family Practice 08/10/10 documented as of this encounter
--- OUTSIDE RECORDS SUMMARY | 2024-09-06 15:36 | XMS_ITS | Encounter Summary ---
Author Organization [facility] Address [address] [place] [address] Care Team Providers Care Kaiako Kura Kaupapa Maori Name Role Phone Zachary Milton MD Primary Care Provider [phone] Encounter Details Date Type Department Care Team (Late st Contact Info) Description 05/29/2014 Nurse Triage Report [id number] ABSTRACTION Natalie Galaviz, RN Social History Tobacco Use Types Packs/Day Years Used Date Smoking Tobacco: Former Cigarettes 0 09/12/1999 - 09/11/2009 Smokeless Tobacco: Never Comments:Occassionaly Alcohol Use Standard Drinks/Week Comments No 0 (1 standard drink = 0.6 oz pure alcohol) Stopped drinking when she was 25 yo Comments Unknown Sex and Gender Information Value Date Recorded Sex Assigned at Not on file Legal 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 ASSESSMENT Assessment Triage Questions: Caller has patient permission to share protected health and personal information for purposes of triage 3-N/A Associated Symptoms: Cramping intermittant. When happening unable to walk Onset: One hour ago Location: Abdominal/Pelvic Pain Assessment: 1 - 10 with 10 being the most severe pain 8 Treatment so far for current presenting problem: Rest History (Clinical Problems): 16 weeks (Denies) History (Oncology/Hematology Diagnosis): N/A Treatment for oncology or hematology diagnosis: N/A Date of last oncology or hematology specific treatment: N/A OB: Are you having contractions 5 minutes apart for 1 hour? Irregular OB: Are you leaking any fluid vaginally? No OB: Are you having any vaginal bleeding? (Indicate color and amount) Sm amount spotting Started 24 hours ago OB: Is your baby moving normally? Not really feeling movement yet Medications: , Zantac, Tylenol Medications and start of each - oncology related: N/A Medication reactions: Augmentin Does this physician utilize [facility] e-prescribing or treatment protocol? N/A Instructed to keep an updated list of their prescriptions and OTC medications and to take their list with them anytime they are seen by a PCP/UCC/ER and or a specialist 1-Yes, patient med-rec teaching done Call source (Pt is currently receiving oncology/hematology services from): 9. Not an oncology/hematology patient TRIAGE NOTE Triage Note: TRIAGE/OUTCOME Guideline Title: : Abdominal Pain Recommended Disposition: See ED Immediately Original Inclination: Call Provider/See in 24 Override Disposition: Intended Action: Seek care in ER Physician Contacted: No Generalized abdominal pain that progresses to localized pain AND any of the following: loss of appetite, vomiting starting after pain, any fever, OR unable to carry out normal activities ? YES Physician Instructions: Care Advice: Another adult should drive. If more than 20 weeks , position on left side. Do not eat or drink anything until evaluated by provider. Write down provider's name. List or place the following in a bag for transport with the patient: current prescription and/or nonprescription medications alternative treatments, therapies and medications and street drugs. documented in this encounter Plan of Treatment Not on file documented as of this encounter Visit Diagnoses Not on filedocumented in this encounter Care Teams Kaiako Kura Kaupapa Maori Relationship Specialty Start Date End Date Zachary Milton MD [address] [place] [address] PCP - General Family Practice 08/10/10 documented as of this encounter
--- OUTSIDE RECORDS SUMMARY | 2024-09-06 15:36 | XMS_ITS | Encounter Summary ---
Author Organization [facility] Address [address] [place] [address] Care Team Providers Care Adult Crossing Guard Name Role Phone Zachary Milton MD Primary Care Provider [phone] Encounter Details Date Type Department Care Team (Latest Contact Info) Description 09/28/2005 Outpatient [facility] [address] [place] [address] [phone] Kennedy Roberts, SALESPERSON DRIVER [address] [place], [place] [id number] Unspecified Infective Otitis Externa (Primary Dx); Acute Pharyngitis; Allergic Rhinitis, Cause Unspecified; Irregular Menstruation Social History Tobacco Use Types Packs/Day Years Used Date Smoking Tobacco: Never Assessed Comments Unknown Sex and Gender Information Value Date Recorded Sex Assigned at Not on file Legal Sex Female 3:59 AM PLANTING SUPERVISOR Gender Identity Not on file Sexual Orientation Not on file documented as of this encounter Plan of Treatment Not on file documented as of this encounter Visit Diagnoses Diagnosis Infective otitis externa, unspecified- Primary Acute pharyngitis Allergic rhinitis, cause unspecified Irregular menstruation Irregular menstrual cycle documented in this encounter Care Teams Adult Crossing Guard Relationship Specialty Start Date End Date Zachary Milton MD [address] [place] [address] [phone] PCP - General Family Practice 08/10/10 documented as of this encounter
--- OUTSIDE RECORDS SUMMARY | 2024-09-06 15:36 | XMS_ITS | Encounter Summary ---
Author Organization [facility] Address [address] [place] [address] Care Team Providers Care Material Stockkeeper Yard Name Role Phone Zachary Milton MD Primary Care Provider [phone] Encounter Details Date Type Department Care Team (Latest Contact Info) Description 09/28/2006 Outpatient Historical [facility] Medicine [place] [address] [place] [address] [phone] Kailee Dorsey, [facility] [address] [place] [address] [phone] Molluscum Contagiosum (Primary Dx) Social History Tobacco Use Types Packs/Day Years Used Date Smoking Tobacco: Never Assessed Comments Unknown Sex and Gender Information Value Date Recorded Sex Assigned at Not on file Legal Sex Female 3:59 AM HEAD OF ETHICS AND COMPLIANCE Gender Identity Not on file Sexual Orientation Not on file documented as of this encounter Plan of Treatment Not on file documented as of this encounter Visit Diagnoses Diagnosis Molluscum contagiosum- Primary documented in this encounter Care Teams Material Stockkeeper Yard Relationship Specialty Start Date End Date Zachary Milton MD [address] [place] [address] [phone] PCP - General Family Practice 08/10/10 documented as of this encounter
--- OUTSIDE RECORDS SUMMARY | 2024-09-06 15:36 | XMS_ITS | Encounter Summary ---
Author Organization [facility] Address [address] [place] [address] Care Team Providers Care Check Services Clerk Name Role Phone Zachary Milton MD Primary Care Provider [phone] Encounter Details Date Type Department Care Team (Latest Contact Info) Description 06/16/2005 Outpatient Historical [facility] Medicine [place] [address] [place] [address] [phone] Kennedy Roberts, CONCHE LOADER AND UNLOADER [address] [place], [place] [address] Unspecified Chest Pain (Primary Dx); Sprain and Strain of Unspecified Site of Knee and Leg Social History Tobacco Use Types Packs/Day Years Used Date Smoking Tobacco: Never Assessed Comments Unknown Sex and Gender Information Value Date Recorded Sex Assigned at Not on file Legal Sex Female 3:59 AM RN CHARGE Gender Identity Not on file Sexual Orientation Not on file documented as of this encounter Plan of Treatment Not on file documented as of this encounter Visit Diagnoses Diagnosis Chest pain, unspecified- Primary Sprain and strain of unspecified site of knee and leg documented in this encounter Care Teams Check Services Clerk Relationship Specialty Start Date End Date Zachary Milton MD [address] [place] [address] [phone] PCP - General Family Practice 08/10/10 documented as of this encounter
--- OUTSIDE RECORDS SUMMARY | 2024-09-06 15:36 | XMS_ITS | Clinical Summary ---
Author Organization [facility] Address [address] [place] [address] Care Team Providers Care Photoengraving Finisher Name Role Phone John Noel MD Primary Care Provider [phone] Allergies Active Allergy Reactions Criticality Noted Date Comments Amoxicillin-Pot Clavulanate Hives,Shortn ess of Breath/Wheezing,Swelling High 12/02/2007 Cefuroxime Axetil Shortness of Breath/Wheezing High 12/22/2010 Clindamycin Hives,Shortness of Breath/Wheezing High 10/30/2016 Latex Hives High 10/17/2016 Penicillins Shortness of Breath/Wheezing High 06/13/2016 Medications Nebulizer & Compressor For Neb DeviceIndication s:Wheezing,Mild intermittent asthma with acute exacerbation For use with albuterol 1 Each 0 0 Active Additional Information Patient not taking.Reported on 04/03/2024 albuterol (PROVENTIL,MANOJ MAYI) 2.5 mg /3 mL (0.083 %) Solution for NebulizationIndi cations:Wheezing Take 3 mL (2.5 mg) by inhalation every 4 hours as needed for Shortness of Breath or Wheezing. 90 mL 2 0 Active Additional Information Patient not taking.Reported on 04/03/2024 acetaminophen (TYLENOL) 325 mg tablet Take 650 mg by mouth every 4 hours as needed. 7 Active losartan-hydroCH LOROthiazide (HYZAAR) 100-25 mg tabletIndication s:Essential hypertension Take 1 Tablet by mouth daily. 100 Tablet 3 4 Active Ventolin HFA 90 mcg/actuation inhalerIndicatio ns:Wheezing TAKE 2 PUFFS BY INHALATION EVERY 4 HOURS NEEDED FOR SHORTNESS OF BREATH OR WHEEZING (COUGH). USE WITH MICROCHAMBER 18 Gram 1 4 Active HYDROcodone-acet aminophen (NORCO) 5-325 mg tabletIndication s:Migraine without status migrainosus, not intractable, unspecified migraine type Take 1 Tablet by mouth every 6 hours as needed for Pain, Moderate. Max Daily Amount: 4 Tablets 28 Tablet 4 Active celecoxib (CeleBREX) 200 mg capsuleIndicatio ns:Left knee pain, unspecified chronicity Take 1 Capsule (200 mg) by mouth 2 times daily. 60 Capsule 2 5 Active Active Problems Problem Noted Date Diagnosed Date Migraine without status migrainosus, not intract able 12/02/2021 Essential hypertension 12/02/2021 History of gestational diabetes 09/08/2016 Morbid obesity 10/30/2014 Constipation 08/14/2014 Left shoulder pain 08/05/2014 Relationship problem between partners 05/03/2012 Mood disorder 02/12/2012 Resolved Problems Problem Noted Date Diagnosed Date Resolved Date Abdominal pain, acute, right upper quadrant 08/30/2017 05/23/2018 Chronic hypertension in 07/24/2016 12/02/2021 Positive GBS test 07/21/2016 12/02/2021 Elderly multigravida in second trimester 07/16/2016 05/23/2018 Supervision of high risk pre gnancy, antepartum 10/30/2014 05/23/2018 Gestational diabetes mellitus, antepartum 05/09/2012 05/23/2018 Supervision of normal 03/08/2012 12/02/2021 Desires (vaginal after ) trial 01/15/2012 07/24/2016 History of maternal group B Streptococcus affected , currently 01/15/2012 Overview (06/30/2020): Patient states baby transported to NICU [facility] d/t breathing problems. Review of child's chart shows prophylactic abx were given x 48 hrs but blood cx neg. No evidence of GBBS infection in that baby. Patient's screening swab was positive in that . It is negative in this . There is no indication for GBBS prophylaxis at this time. History of delivery 01/15/2012 12/02/2021 Overview (07/01/2020): x 1, x 2, Desires Previous complicat ed by -induced hypertension, antepartum 01/15/2012 12/02/2021 confirmed 11/12/2009 05/24/19 Encounters Date Type Department Care Team Description 09/02/2024 Orders Only [facility] [address] [place] [phone] Lv Irving MD Left knee pain, unspecified chronicity (Primary Dx) 08/28/2024 Telephone [facility] [address] [place] [address] Lv Irving MD General 08/22/2024 Telephone [facility] [address] [place] [address] Lv Irving MD General 08/19/2024 External Device Data STL ABSTRACTION Provider, Abstract 08/01/2024 2:00 PM CDT Office Visit [facility] [address] [place] [phone] Sandra Patterson NP Left knee pain, unspecified chronicity (Primary Dx) 08/01/2024 1:35 PM CDT Ancillary Procedure [facility] [address] [place] [phone] Lv Irving MD Left knee pain, unspecified chronicity 07/25/2024 Orders Only [facility] [address] [place] [address] Lv Irving MD Left knee pain, unspecified chronicity (Primary Dx) 07/24/2024 External Device Data STL ABSTRACTION Provider, Abstract 07/23/2024 External Device Data STL ABSTRACTION Provider, Abstract 2024 External Device Data STL ABSTRACTION Provider, Abstract 07/10/2024 Telephone [facility] [address] [place] [phone] Sandra Patterson NP General from Last 3 Months Immunizations Immunization Administration Dates Next Due (ADACEL/BOOSTRIX)(10 [...] Years Used Date Smoking Tobacco: Former Cigarettes Q uit: 09/11/2005 Passive Smoke Exposure: Past Smokeless Tobacco: Never Tobacco Cessation:Counseling Given: No Alcohol Use Standard Drinks/Week Comments No 0 (1 standard drink = 0.6 oz pur e alcohol) Comments No Sex and Gender Information Value Date Recorded Sex Assigned at Female 11/26/2023 10:52 AM CDT Legal Sex Female 5:04 PM PRE FABRICATOR Gender Identity Female 11/26/2023 10:52 AM CDT Sexual Orientation Straight 11/26/2023 10 :52 AM CDT Last Filed Vital Signs Vital Sign Reading Time Taken Comments Blood Pressure 145/88 08/01/2024 2:04 PM CDT Pulse 89 04/03/2024 1:56 PM PRE FABRICATOR Temperature 36.1 C (96.9 F) 04/03/2024 1:56 PM PRE FABRICATOR Respiratory Rate 20 04/03/2024 1:56 PM PRE FABRICATOR Oxygen Saturation 98% 04/03/2024 1:56 PM PRE FABRICATOR Inhaled Oxygen Concentration - - Weight 132.5 kg (292 lb) 08/01/2024 2:04 PM CDT Height 170.2 cm (5' 7 ) 08/01/2024 2:04 PM CDT Body Mass Index 45.73 08/01/2024 2:04 PM CDT Plan of Treatment Health Maintenance Due Date Last Done Comments HEPATITIS B VACCINES (1 of 3 - 19+ 3-dose series) 07/23/1999 Preventative Visit-Managed Medicaid 07/23/1999 HPV/Cotest (21-29) 2001 HPV/Cotest (30-65) 2010 CERVICAL CANCER SCREENING 08/05/2017 PAP SMEAR 08/05/2017 08/05/2014 BREAST CANCER SCREENING 2020 INFLUENZA VACCINE (#1) 2024 2, 05/21/2018, 02/02/2018, Additional history exists Pre-Diabetes and Diabetes Screening 05/01/2026 05/01/2023, 08/30/2017, 05/11/2016 DTAP/TDAP/TD VACCINES (3 - Td or Tdap) 07/27/2026 07/27/2016, 11/01/2014, 04/10/2004 HPV VACCINES Aged Out No longer eligi ble based on patient's age to complete this topic Procedures Procedure Name Priority Date/Time Associated Diagnosis Comments XR KNEE 4+ VW LEFT Routine 08/01/2024 1: 42 PM CDT Left knee pain, unspecified chronicity HEMOGLOBIN A1C Routine 05/01/2023 10:46 AM PRE FABRICATOR Essential hypertension CERV/VAG CYTOPATH, THIN PREP SHOP TECHNICIAN Routine 08/05/2014 2:22 PM CDT from Last 3 Months or Most Recently Relevant to Health Maintenance Results * XR KNEE 4+ VW LEFT (08/01/2024 1:42 PM CDT) Anatomical Region Laterality Modality Lower Extremity Computed Radiogr aphy Narrative 08/04/2024 6:56 AM CDT 4 views of the affected LEFT knee(s) were obtained on 08/01/2024 which demonstrated well maintained joint space without evidence of joint space narrowing, periarticular osteophyte formation, or subchondral sclerosis. Lv Irving MD DIAGNOSTIC IMAGING [facility] Final Result * HEMOGLOBIN A1C (05/01/2023 10:46 AM PRE FABRICATOR) HEMOGLOBIN A1C 5.3 <5.7 % of total Hgb [facility] Comment: For the purpose of screening for the presence of diabetes: <5.7% Consistent with the absence of diabetes 5.7-6.4% Consistent with increased risk for diabetes (prediabetes) > or =6.5% Consistent with diabetes This assay result is consistent with a decreased risk of diabetes. Currently, no consensus exists regarding use of hemoglobin A1c for diagnosis of diabetes in children. According to [place] Diabetes Association (ADA) guidelines, hemoglobin A1c <7.0% represents optimal control in non- diabetic patients. Different metrics may apply to specific patient populations. Standards of Medical Care in Diabetes(ADA). ESTIMATED AVERAGE GLUCOSE (MG/DL) 105 mg/dL [facility] ESTIMATED AVERAGE GLUCOSE (MMOL/L) 5.8 mmol/L [facility] [facility] Comment: This test was performed on the Leung Commercial Designer c8000 platform. Please be advised that [email or web address] will move hemoglobin A1c testing to the Erica platform soon. In general, direct comparison of the results from different platforms is not recommended. Test Performed at: [facility] [address] [place] [address] Kaleb Rodriguez MD Blood 05/01/2023 10:4 6 AM PRE FABRICATOR 05/02/2023 3:41 AM PRE FABRICATOR Melissa SCHREIBER CHEMISTRY ORDERABLES Cecilia l Result [facility] [phone] [email or web address] [address] [place] [address] * CERV/VAG CYTOPATH, THIN PREP SHOP TECHNICIAN (08/05/2014 2:22 PM CDT) PATHOLOGY/CY TOLOGY REPORT [facility] Anatomic Pathology Dept [address] [facility] [address] Patient: JIMMIE GARCÍA Accn No: [id number] , [id number] Collected: 08/05/2014 2:22:00 PM All cases except those with a DP prefix are performed by pathologists from [facility] at [facility]. Case type DP is performed by Dr. Oscar Riggs, [facility], [facility], [address], [address], [place] [address] (CLIA #[id number]) (Ph. [phone]). CYTOLOGY PRE FABRICATOR FINAL REPORT - - SHOP TECHNICIAN PAP History Specimen Type: Endocervical Previous Pap History: None Provided Specimen Adequacy Satisfactory for interpretation. The smear lacks endocervical or metaplastic cells. Diagnosis NEGATIVE FOR INTRAEPITHELIAL LESION OR MALIGNANCY. (Previously noted as Within Normal Limits) Engineer Operations And Maintenance/ CHUY Pathologist: 08/19/14 Completed by: STEFANY VASQUEZ [...] treating physician in consultation with his/her patient. 08/19/2014 2:43 PM CDT [facility] 08/05/2014 2:22 PM CDT Narrative [facility] - 08/19/2014 2:43 PM CDT Cerner Ordered:IM Cytology Proposal Rep Final Office Services Clerk PAP Report:# Kailee Dorsey LEGAL CONTRACTS SPECIALIST PATHOLOGY/CYTOLOGY ORDERABLES Edited Result - Final [facility] CLIA# [id number] [address] [place] [address] [facility] CLIA # [id number] [address] [place] [id number] [place] [address] from Last 3 Months or Most Recently Relevant to Health Maintenance Insurance [facility] [employer] MEDICAID Care Teams Photoengraving Finisher Relationship Specialty Start Date End Date John Noel MD [address] [place] [address] [phone] PCP - General Family Practice 02/29/24
--- OUTSIDE RECORDS SUMMARY | 2024-09-06 15:36 | XMS_ITS | Encounter Summary ---
Author Organization [facility] Address [address] [place] [address] Care Team Providers Care Blasting Coal Miner Name Role Phone Zachary Milton MD Primary Care Provider [phone] Encounter Details Date Type Department Care Team (Latest Contact Info) Description 11/07/2006 Outpatient Historical [facility] Medicine [place] [facility] [address], [place] [phone] Rancho Oliva MD [address], [place] [phone] Acute Bronchitis (Primary Dx) Social History Tobacco Use Types Packs/Day Years Used Date Smoking Tobacco: Never Assessed Comments Unknown Sex and Gender Information Value Date Recorded Sex Assigned at Not on file Legal Sex Female 3:59 AM AUTO 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
--- OUTSIDE RECORDS SUMMARY | 2024-09-06 15:36 | XMS_ITS | Encounter Summary ---
Author Organization [facility] Address [address] [place] [address] Care Team Providers Care Business Intern Name Role Phone John Noel MD Primary Care Provider [phone] Reason for Referral * Eval and Treat (Routine) - Open Specialty Diagnoses / Procedures Referred By Tara gauthier Referred To Contact Physical Therapy Diagnoses Left knee pain, unspecified chronicity Lv Irving MD [address] [place] [address] Phone: tel: fax: [facility] Physical Therapy Services [place] [address] [place] [address] Phone: tel: fax: Referral ID Status Reason Start Date Expiration Date Visits Re quested Visits Authorized [id number] Open 09/02/2024 09/02/2025 18 18 Encounter Details Date Type Department Care Team (Late st Contact Info) Description 09/02/2024 Orders Only [facility] Orthopedics - Orthopedic [facility] [address] [place] [address] Lv Irving MD [address] [place] [address] Left knee pain, unspecified chronicity (Primary Dx) Social History Tobacco Use Types Packs/Day Years Used Date Smoking Tobacco: Former Cigarettes Q uit: 09/11/2005 Passive Smoke Exposure: Past Smokeless Tobacco: Never Alcohol Use Standard Drinks/Week Comments No 0 (1 standard drink = 0.6 oz pur e alcohol) Comments No Sex and Gender Information Value Date Recorded Sex Assigned at Female 11/26/2023 10:52 AM CDT Legal Sex Female 5:04 PM SENIOR ARCHITECT Gender Identity Female 11/26/2023 10:52 AM CDT Sexual Orientation Straight 11/26/2023 10 :52 AM CDT documented as of this encounter Plan of Treatment Scheduled Referrals Name Type Priority Associated Diagnoses Orde r Schedule AMB REFERRAL TO PHYSICAL THERAPY Outpatient Referral Routine Left knee pain, unspecified chronicity Ordered: 09/02/2024 documented as of this encounter Visit Diagnoses Diagnosis Left knee pain, unspecified chronicity- Primary documented in this encounter Care Teams Business Intern Relationship Specialty Start Date End Date John Noel MD [address] [place] [phone] PCP - General Family Practice 02/29/24 documented as of this encounter
--- OUTSIDE RECORDS SUMMARY | 2024-09-06 15:36 | XMS_ITS | Encounter Summary ---
Author Organization [facility] Address [address] [place] [address] Care Team Providers Care Fish Egg Packer Name Role Phone Zachary Milton MD Primary Care Provider [phone] Encounter Details Date Type Department Care Team (Latest Contact Info) Description 08/31/2006 Outpatient Historical [facility] Medicine [place] [address] [place] [address] [phone] Kailee Dorsey, [facility] [address] [place] [phone] Leukorrhea, not Specified as Infective (Primary Dx); Absence of Menstruation; Nausea Alone; Viral Warts, Unspecified Social History Tobacco Use Types Packs/Day Years Used Date Smoking Tobacco: Never Assessed Comments Unknown Sex and Gender Information Value Date Recorded Sex Assigned at Not on file Legal Sex Female 3:59 AM SUPERVISOR TELEVISION CHASSIS REPAIR Gender Identity Not on file Sexual Orientation Not on file documented as of this encounter Plan of Treatment Not on file documented as of this encounter Visit Diagnoses Diagnosis Leukorrhea, not specified as infective- Primary Absence of menstruation Nausea alone Viral warts, unspecified documented in this encounter Care Teams Fish Egg Packer Relationship Specialty Start Date End Date Zachary Milton MD [address] [place] [phone] PCP - General Family Practice 08/10/10 documented as of this encounter
--- OUTSIDE RECORDS SUMMARY | 2024-09-06 15:36 | XMS_ITS | Encounter Summary ---
Author Organization [facility] Address [address] [place] [address] Care Team Providers Care Rn Hyperbaric Name Role Phone Zachary Milton MD Primary Care Provider [phone] Encounter Details Date Type Department Care Team (Latest Contact Info) Description 09/13/2006 Outpatient Historical [facility] Medicine [place] [address] [place] [address] [phone] Kailee Dorsey, [facility] [address] [place] [address] [phone] Abdominal Pain, Unspecified Site (Primary Dx); Nausea Alone; Absence of Menstruation Social History Tobacco Use Types Packs/Day Years Used Date Smoking Tobacco: Never Assessed Comments Unknown Sex and Gender Information Value Date Recorded Sex Assigned at Not on file Legal Sex Female 3:59 AM SALAD COUNTER ATTENDANT Gender Identity Not on file Sexual Orientation Not on file documented as of this encounter Plan of Treatment Not on file documented as of this encounter Visit Diagnoses Diagnosis Abdominal pain, unspecified site- Primary Nausea alone Absence of menstruation documented in this encounter Care Teams Rn Hyperbaric Relationship Specialty Start Date End Date Zachary Milton MD [address] [place] [address] [phone] PCP - General Family Practice 08/10/10 documented as of this encounter
[2024-09-06 16:16] LABS: Hematocrit 38.0 % (36-47); Hemoglobin 11.30 g/dL (11.27-16.99); Mean Corpuscular HGB Conc 29.7 g/dL (30-55); Mean Corpuscular Hemoglobin 23.6 pg (27-33); Mean Corpuscular Volume 79.5 fl (85-98); Nucleated Red Blood Cells % 0 %; Platelet Count 400 10^3/cmm (157-399); Red Blood Count 4.78 10^6/uL (3.85-5.65); White Blood Count 17.51 10^3/uL (3.29-11.43)
[2024-09-06 16:39] LABS: Alanine Aminotransferase 15 U/L (0-33); Albumin Level 3.8 g/dL (3.5-5.2); Alkaline Phosphatase 123 U/L (35-105); Anion Gap 17.1 (5-19); Aspartate Amino Transferase 16 U/L (0-32); Blood Urea Nitrogen 5 mg/dL (6-20); Calcium 9.2 mg/dL (8.5-10.5); Carbon Dioxide 23 mmol/L (22-29); Chloride 97 mmol/L (98-107); Creatinine Clr Calc Pharmacy 145.0291; Globulin 3.5 g/dL (1.3-4.6); Glucose 82 mg/dL (65-115); Osmolality Calculated 272 mOsm/kg (285-295); Potassium 4.1 mmol/L (3.5-5.1); Sodium 133 mmol/L (136-145); Total Protein 7.3 g/dL (6.6-8.7)
--- NOTE | 2024-09-06 17:11 | ED_ITS ---
HPI - URI/Sore Throat 2 General: Chief Complaint: Upper Respiratory Infection Stated Complaint: cough, N/D Time Seen by Provider: 09/06/24 17:00 History of Present Illness: Chief complaint is cough congestion diarrhea. Patient states 3 or 4 days ago she came down with a subjective fever had nasal congestion drainage and then developed a little bit of a sore throat and then after that started coughing and having diarrhea. No vomiting. She states she did have a headache with this when it first started as well. No tick bite or rash. No dysuria. No abdominal pain. Related Data Home Medications ?Medication ?Instructions ?Recorded ?Confirmed acetaminophen 500 mg tablet 1,000 mg PO Q6H PRN Pain 0 11/01/21 12/27/23 Previous Rx's ?Medication ?Instructions ?Recorded budesonide-formoterol HFA 160 2 puff inhalation BID #1 0.2 grams 03/03/21 mcg-4.5 mcg/actuation aerosol inhaler (Symbicort) amlodipine 10 mg tablet 10 mg PO DAILY #30 tabs 11/25 lisinopril 10 mg tablet 10 mg PO DAILY #30 tabs 020 11/25 metoprolol succinate 25 mg 25 mg PO DAILY #30 tabs 11/25 tablet,extended release 24 hr (Toprol XL) gabapentin 100 mg capsule 100 mg PO Q8H 7 days #21 cap s 07/11/22 albuterol sulfate 2.5 mg/3 mL 2.5 mg (3 mL) inhalation Q4H PRN 12/27/23 (0.083 %) solution for nebulization Shortness Of Breat h #180 mL albuterol sulfate 90 mcg/actuation 2 puff inhalation Q 4H PRN 12/27/23 aerosol inhaler (Ventolin HFA) Shortness Of Breath #8. 5 grams levofloxacin 750 mg tablet 750 mg PO DAILY 7 days #7 t abs 12/27/23 prednisone 20 mg tablet 40 mg (2 x 20 mg) PO DAILY 5 days 12/27/23 #10 tabs azithromycin 250 mg tablet See Rx Instructions PO .COM PLEX #6 09/06/24 (Zithromax Z-Laci) tabs Allergies Allergy/AdvReac Type Severity Reaction Status Date / Time clindamycin Allergy Intermediate ALGY-Swell Verified 09/24/23 12:45 Lip/Tongue/Throat Penicillins Allergy Unknown Verified 09/24/23 12:45 PFS ED 2 PFSH: Medical History HTN (hypertension) with goal to be determined Smoking Swelling of right side of face Obesity Seasonal allergies Cholelithiasis Asthma Surgical History Status post laparoscopic cholecystectomy (04/19/20) History of Family History Other Bleeding disorder Denies family history of Anesthesia complication Social History Smoking and tobacco/nicotine status: current every day tobacco/nicotine user Alcohol intake: never Substance/Drug Use: never Female Reproductive History: Spontaneous abortions: No Physical Exam 2 Narrative: EXAM NARRATIVE: Patient is alert oriented no acute distress. She starts coughing however when she is trying to talk to me. She has nasal congestion and drainage. Her neck is supple. Normal conjunctiva. Heart regular rhythm. Lung sounds are clear. Abdomen soft nontender. Extremities warm well-perfused. No calf tenderness or pitting edema. Clear speech. Alert and oriented x 4. Skin appears normal coloration is warm pink and dry. No rash in exposed areas. No tenderness over her back. Moves her back freely. Course 2 Vital Signs: Vital signs: Vital Signs Temperature 98.8 F 09/06/24 15:34 Pulse Rate 82 09/06/24 15:34 Respiratory Rate 18 09/06/24 15:34 Blood Pressure 177/85 09/06/24 15:34 Pulse Oximetry 95 09/06/24 15:34 Oxygen Delivery Me thod Room Air 09/06/24 15:34 MDM - URI/Sore Throat Medical Decision Making Patient denies having immunosuppression or any medical problems. She states she gets bronchitis a lot and she does have an inhaler she can use if she needs it. She states she is not on steroids currently. She has not checked her temperature so does not know what her fever has been but states she has had subjective fever. She denies any possible tick bite. She states she does not go on the lenz or deep grass or anywhere if she gets a tick and has not had any bites. She denies abdominal pain or chest pain or shortness of breath. She states she just has the bad cough at this point. Her blood pressure is elevated. She states she is supposed to be on amlodipine and lisinopril and another blood pressure medication but she states she does not take them because her doctor keeps messing with her medications and she does not like it. Educated regarding the importance of control of her blood pressure long-term and she expressed understanding. CBC and CMP were ordered as well as chest x-ray and COVID and influenza swab. CBC shows elevated white count. CMP did not show significant acute abnormality. Patient presentation most consistent with viral illness. With her white count elevation however consideration for bacterial illness. Patient not toxic appearing. Educated regarding limits of ED evaluation, close outpatient follow-up and return instructions. Advised symptomatic treatment and signs symptoms of worsening to watch and return for. COVID influenza and RSV were negative. Chest x-ray negative for acute process to my independent review and interpretation. I advised patient formal interpretation pending. I advised her regarding her elevated white count signs symptoms watch and return for. Patient is alert talkative no acute distress. Reasonable to do outpatient management as per her request. Will provide work note per her request and discharged with close return follow-up instructions with a prescription for azithromycin and advised to follow-up on formal interpretation of the x-ray Lab Data 09/06/24 16:00 09/06/24 16:00 Laboratory Results WBC 17.51 10^3/uL (3.29-11.43) H 09/06/24 16:00 RBC 4.78 10^6/uL (3.85-5.65) 09/06/24 16:00 Hgb 11.30 g/dL (11.27-16.99) 09/06/24 16:00 Hct 38.0 % (36-47) 09/06/24 16:00 MCV 79.5 fl (85-98) L 09/06/24 16:00 MCH 23.6 pg (27-33) L 09/06/24 16:00 MCHC 29.7 g/dL (30-55) L 09/06/24 16:00 RDW 15.7 % (12.1-15.1) H 09/06/24 16:00 Plt Count 400 10^3/cmm (157-399) H 09/06/24 16:00 MPV 9.3 fL (7.4-10.4) 09/06/24 16:00 Neut % (Auto) 84.7 % 09/06/24 16:00 Lymph % (Auto) 7.3 % 09/06/24 16:00 Rice % (Auto) 5.6 % 09/06/24 16:00 Eos % (Auto) 1.3 % 09/06/24 16:00 Baso % (Auto) 0.5 % 09/06/24 16:00 Neut # (Auto) 14.82 10^3/uL (1.8-7.7) H 09/06/24 16:00 Lymph # (Auto) 1.3 10^3/uL (0.8-4.8) 09/06/24 16:00 Rice # (Auto) 1.0 10^3/uL (0.2-0.9) H 09/06/24 16:00 Eos # (Auto) 0.2 10^3/uL (0.0-0.8) 09/06/24 16:00 Baso # (Auto) 0.1 10^3/uL (0.0-0.1) 09/06/24 16:00 Nucleated RBC % (auto) 0 % 09/06/24 16:00 Nucleated RBCs # 0.0 /100WBC 09/06/24 16:00 Sodium 133 mmol/L (136-145) L 09/06/24 16:00 Potassium 4.1 mmol/L (3.5-5.1) 09/06/24 16:00 Chloride 97 mmol/L (98-107) L 09/06/24 16:00 Carbon Dioxide 23 mmol/L (22-29) 09/06/24 16:00 Anion Gap 17.1 (5-19) 09/06/24 16:00 BUN 5 mg/dL (6-20) L 09/06/24 16:00 Creatinine 0.7 mg/dL (0.5-0.9) 09/06/24 16:00 GFR Calculation 90.9 mL/min (90-130) 09/06/24 16:00 Glucose 82 mg/dL (65-115) 09/06/24 16:00 Calculated Osmolality 272 mOsm/kg (285-295) L 09/06/24 16:00 Calcium 9.2 mg/dL (8.5-10.5) 09/06/24 16:00 Total Bilirubin 0.4 mg/dL (0.15-1.2) 09/06/24 16:00 AST 16 U/L (0-32) 09/06/24 16:00 ALT 15 U/L (0-33) 09/06/24 16:00 Alkaline Phosphatase 123 U/L (35-105) H 09/06/24 16:00 Total Protein 7.3 g/dL (6.6-8.7) 09/06/24 16:00 Albumin 3.8 g/dL (3.5-5.2) 09/06/24 16:00 Globulin 3.5 g/dL (1.3-4.6) 09/06/24 16:00 Influenza A (PCR) Negative (Negative) 09/06/24 16:51 Influenza Type B (PCR) Negative (Negative) 09/06/24 16:51 RSV (PCR) Negative (Negative) 09/06/24 16:51 SARS-CoV-2 (PCR) Negative (Negative) 09/06/24 16:51 XR interpretation done by ED provider, pending radiology final review Discharge Plan Discharge Patient Disposition: Home Clinical Impression: Acute bronchiolitis, Acute diarrhea Condition: Stable Prescriptions: New azithromycin [Zithromax Z-Laci] 250 mg tablet See Rx Instructions .ROUTE .COMPLEX Qty: 6 0RF Rx Instructions: For 250 mg dose pack: take 500 mg today (day 1), then 250 mg for 4 days (days 2-5) No Action budesonide-formoterol [Symbicort] 160-4.5 mcg/actuation HFA aerosol inhaler 2 puff inhalation BID Qty: 10.2 0RF gabapentin 100 mg capsule 100 mg PO Q8H 7 Days Qty: 21 0RF amlodipine 10 mg tablet 10 mg PO DAILY Qty: 30 1RF lisinopril 10 mg tablet 10 mg PO DAILY Qty: 30 1RF Toprol XL 25 mg tablet extended release 24 hr 25 mg PO DAILY Qty: 30 1RF albuterol sulfate [Ventolin HFA] 90 mcg/actuation HFA aerosol inhaler 2 puff inhalation Q4H PRN (Reason: Shortness Of Breath) Qty: 8.5 2RF albuterol sulfate 2.5 mg /3 mL (0.083 %) solution for nebulization 2.5 mg inhalation Q4H PRN (Reason: Shortness Of Breath) Qty: 180 2RF prednisone 20 mg tablet 40 mg PO DAILY 5 Days Qty: 10 0RF levofloxacin 750 mg tablet 750 mg PO DAILY 7 Days Qty: 7 0RF Tylenol Ex Str Rapid Release 500 mg Tablet 1,000 mg PO Q6H PRN (Reason: Pain) Discharge Orders: Discharge ED (Routine); Ordered 09/06/24 Ordered By: Umang Wyman Patient Instructions: Opioid Safety, Pain Management, Patient Portal & Ilia Instructions Activity Restrictions/Additional Instructions: Follow-up on your test results with your doctor. Follow-up on your formal chest x-ray interpretation with your doctor. Please come back if increased shortness of breath, weakness, uncontrolled diarrhea, black or bloody stools, vomiting, persistent or worsening fever, getting worse instead of better, concerning headache, any worse or concerns. Please talk to your doctor about controlling your blood pressure and your blood pressure and other medications. Please excuse from work today and for the next 2 days due to medical reason Stand Alone Forms: Work/School Release Print Language: Yi Coding Level of Care Code ED Child Protective Services Specialist for Melony Mansfield
[2024-09-06 17:44] LABS: Respiratory Syncytial Virus Ce NEGATIVE (Negative); SARS-CoV-2 PCR NEGATIVE (Negative)
== END 2024-09-06 18:04 | disposition home or self-care (01) ==
PROVIDERS: Family Medicine; Emergency Provider Emergency Medicine
DX: J21.9 Acute bronchiolitis, unspecified (principal); R19.7 Diarrhea, unspecified; Z11.52 Encounter for screening for COVID-19; Z72.0 Tobacco use; I10 Essential (primary) hypertension
CPT/HCPCS: 36415; 71045; 80053; 85025; 87637; 99284

== ENCOUNTER 2024-11-09 18:18 | Emergency (ER) | payer MEDICAID, SELFPAY ==
--- OUTSIDE RECORDS SUMMARY | 2022-07-12 03:15 | XMS_ITS | Continuity of Care Document ---
Author Organization [facility] Address [address] [id number] [address] Phone Care Team Providers Care Shuttle Preparation Supervisor Name Role Phone Ricki Bangura DDS Unavailable Unavailable Allergies, Adverse Reactions, Alerts Substance Reaction Status Criticality PENICILLIN trouble breathing Active No Informa tion CEFUROXIME AXETIL hives, trouble breathing Active No Information POTASSIUM CLAVULANATE throat swelling Active No Information AMOXICILLIN TRIHYDRATE throat swelling Active No Information Medications Medication Instructions Dosage Effective Dates (start - stop) Status Comments levofloxacin 750 mg tablet take 1 tablet by oral route every day 750 MG - Active metronidazole 500 mg tablet take 1 tablet by oral route every 8 hours 500 MG - Active gabapentin 100 mg capsule take 3 capsule by oral route every day at bedtime 300 MG - Active ondansetron 4 mg disintegrating tablet take 2 tablet by oral route every [address] on top of the tongue where they will dissolve, then swallow 8 MG - Active ProAir RespiClick 90 mcg/actuation breath activated inhale 2 puff by inhalation route every 4 - 6 hours as needed 180 MCG - Active hydroxyzine HCl 50 mg tablet take 1 Tablet by oral route every 6 hours prn anxiety. 1 Tablet - No Longer Active VITAMINS (unknown strength) one tablet daily Not Available - No Longer Active Problems Condition Type Effective Dates (start - stop) Clini george Status Comments No Known Problems Procedures Procedure Date Intraoral Periapical First Film Limited Oral Evaluation Problem Focused Extraction, Erupted Tooth Or Exposed Saira t (Elevati PSYTX PT&/FAMILY 45 MINUTES OB US >/= 14 WKS SNGL FETUS OFFICE/OUTPATIENT VISIT NEW URINALYSIS AUTO W/O SCOPE Drug Tests Presumptive Any Number Of [facility] Classes TRANSFERASE (AST) (SGOT) ASSAY OF CREATININE ALANINE AMINO (ALT) (SGPT) COMPLETE CBC W/AUTO DIFF WBC URIC ACID ROUTINE VENIPUNCTURE CHYLMD TRACH DNA AMP PROBE N.GONORRHOEAE DNA AMP PROB IMMUNIZATION ADMIN FLU VAC NO PRSV 4 INDIRA 3 YRS+ IMMUNIZATION ADMIN, EACH ADD TDAP VACCINE >7 IM OB US >/= 14 WKS, SNGL FETUS N.GONORRHOEAE, DNA, DIR PROB CHYLMD TRACH, DNA, DIR PROBE OFFICE/OUTPATIENT VISIT, NEW Drug Tests Presumptive Any Number Of [facility] g Classes URINALYSIS AUTO W/O SCOPE URINE TEST URINE CULTURE, ROUTINE CPT 31367 2016 Advance Directives Directive Yes / No Effective Date File Name No Information Encounters Encounter Description Practice Location Reason(s) For Visit Diagnoses Date Provider Providers Copied on Encounter [facility], [id number]- [facility] [place], [id number], [place] tel:[phone] [facility] No Information 3 Sveta Robison. [address], [place], [id number], [place]. tel:[phone] Referring Provider: Ricki Timmons, [address] [facility] [place], [address] . tel:[phone] PSYTX PT&/FAMILY 45 MINUTES [facility], [id number]- [facility] [place] [place] [id number], [place] tel:[phone] [facility] 0 7 Venu Schumacher. [address] [place], [address], [place]. tel:[phone] Referring Provider: Endy Lea, [address] [place], [address]. tel:[phone] [facility], [id number]- [place], [id number], [place] tel:[phone] [facility] Consult (chief complaint) Obesity complicating , unspecified trimesterSuper vision of high risk , unsp, unsp trimesterSuper vision of elderly multigravida, unspecified trimesterPre-e xisting essential htn comp , unsp trimester 7 Jem Schumacher. [address], [place], [id number], [place]. tel:[phone] Referring Provider: Endy Everett, [address] [place], [address] . tel:[phone] [facility], [id number]- [place], [address], [place] tel:[phone] Family Medicine Supervision of high risk , unsp, unsp trimesterDrug use complicating , unspecified trimester 7 Jem Schumacher. [address], [place], [address], [place]. tel:[phone] Referring Provider: Endy Everett, [address] [place], [address] . tel:[phone] [facility], [id number]- [place], [address], [place] tel:[phone] Family Medicine Pre-existing essential htn comp , unsp trimester 0 7 Jem Schumacher. [address], [place], [address], [place]. tel:[phone] Referring Provider: Endy Everett, [address] [place], [address] . tel:[phone] [facility], [id number]- [place], [id number], [place] tel:[phone] Family Medicine Encounter for screening for oth infec/parastc diseases Jem Schumacher. [address], [place], [id number], [place]. tel:[phone] Referring Provider: Endy Everett, [address] [place], [address] . tel:[phone] OFFICE/OUTPA TIENT VISIT, [facility], [id number]- [place], [id number], [place] tel:[phone] [facility] F1 (chief complaint) Supervision of other high risk pregnancies, unsp trimesterObesi ty complicating , unspecified trimesterSuper vision of high risk , unsp, unsp trimesterSuper vision of elderly multigravida, unspecified trimesterMater nal care for unsp type scar from previous delDrug use complicating , unspecified trimesterEncnt r screen for infections w sexl mode of transmissEncou nter for screening for oth infec/parastc diseases No Information [facility], [id number]- [place], [address], [place] tel:[phone] [facility] Medicine Encntr for suprvsn of normal first , unsp trimester No Information As per patient privacy policy some of the clinical information may not be visible. Family History Family Member Type Diagnosis Age At Onset Father Problem (finding) Developmental delay Father Problem (finding) depression Father Problem (finding) hypertension Father Problem (finding) high cholesterol Immunizations Vaccine Date Status Comments Tdap (7 yrs and older) administered Note: [facility]: [id number] tolerated well and no reaction in clinic. VIS given and consent signed. ; Source: New Immunization Record Influenza, injectable, quadrivalent, preservative free, 3 yrs or older administered Note: [facility]: [id number] tolerated well without reaction while in clinic. VIS given and Consent signed ; Source: New Immunization Record Payers Payer name Insurance type Covered democrat ID Mohsen torrez(s) D [employer] CI [id number] [facility] Health Plan CI [id number] [facility] CI [id number] Social History Type Description Quantity Date Captured Comments Alcohol Use Details No Caffeine Use Details Unknown Tobacco Use Status No Information Smoking Status No Information Sex Female Sexual Orientation Heterosexual Gender Identity Female Chief Complaint And Reason For Visit No Information Reason For Referral Reason For Referral No Information History Of Present Illness Encounter Date Complaint History Of Prese nt Illness MFM Consult AMA but has hist ory of ? marginal abruption with normal coags and normal ultrasound. Also CHTN and suspected superimposed pre-eclampsia. LMP was 01/09/20 16. Severity: high risk. Context: confirmed by lab test on //. The patient had 5 previous pregnancies. Associated symptoms include breast tenderness. Pertinent negatives include anorexia, bleeding, constipation, edema, fatigue, fever, headache, heartburn, irritability, nausea, pelvic pain, spotting, urinary difficulty, vaginal discharge, vomiting. Functional Status Date Functional Assessmen t No Information Instructions Date Instruction Additional Infor mation New OB intake, See P ND.Routine labs/diagnostics completed at [facility].Dated by 12w [address]d US [facility], see scanned report.Anatomy US reviewed, incomplete, will obtain anatomy US REGLA.Declined flu vaccine.Continue Vistaril 50 mg BID PRN.Discontinue Albuterol INH at this time, due to concerns with elevated blood pressure. [facility] ED if concerns for shortness of breath.Discussed genetic testing, will refer to Dr. Parish for further counseling.Discussed pt with Dr. Parish today, he discontinued twice weekly surveillance at this time. He plans to re-evaluate pt 08/01/16. RTC in 1 week for follow up with Dr. Parish, sooner if concerns. Related to Supervision of other high risk pregnancies, unsp trimester alcohol illicit / recreational drugs use of any medicatio ns (including supplements, vitamins, herbs, OTC drugs) smoking counseling domestic violence seat belt use childbirth classes / hospital facilities tobacco (ask, advise , assess, assist and arrange) travel environmental / work hazards influenza vaccine indications for ultrasound exercise sexual activity toxoplasmosis precau tions (cats / raw meat) nutrition and weight gain counseling, special diet anticipated course of c are risk factors identif ied by history HIV and other routine t ests Genetic Testing Book Vitamins signs and symptoms of la bor abnormal lab values influenza vaccine domestic violence family pl anning / tubal sterilization Assessments Type Assessment Date No Information Patient Care Teams Name Effective Dates (start - stop) Status Members No Information
--- OUTSIDE RECORDS SUMMARY | 2024-11-09 18:21 | XMS_ITS | Encounter Summary ---
Author Organization [facility] Address [address] [place] [address] Care Team Providers Care Mosquito Sprayer Name Role Phone Zachary Milton MD Primary Care Provider [phone] Encounter Details Date Type Department Care Team (Latest Contact Info) Description 02/02/2005 Outpatient Historical [facility] Medicine [place] [address] [place] [address] [phone] Kailee Dorsey, [facility] [address] [place] [address] [phone] STRESS REACT, EMOTIONAL (Primary Dx) Social History Tobacco Use Types Packs/Day Years Used Date Smoking Tobacco: Never Assessed Comments Unknown Sex and Gender Information Value Date Recorded Sex Assigned at Not on file Legal Sex Female 3:59 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
--- OUTSIDE RECORDS SUMMARY | 2024-11-09 18:21 | XMS_ITS | Encounter Summary ---
Author Organization [facility] Address [address] [place] [address] Care Team Providers Care Insurance Risk Analyst Name Role Phone Zachary Milton MD Primary Care Provider [phone] Encounter Details Date Type Department Care Team (Latest Contact Info) Description 10/24/2004 Outpatient Historical [facility] Medicine [place] [address] [place] [address] [phone] Kennedy Roberts, UNDERWRITER SOLICITATION DIRECTOR [address] [place], [place] [phone] ABDOMINAL PAIN UNSPEC SITE (Primary Dx); ABSENCE OF MENSTRUATION Social History Tobacco Use Types Packs/Day Years Used Date Smoking Tobacco: Never Assessed Comments Unknown Sex and Gender Information Value Date Recorded Sex Assigned at Not on file Legal Sex Female 3:59 AM SHIPPER AND RECEIVING Gender Identity Not on file Sexual Orientation Not on file documented as of this encounter Plan of Treatment Not on file documented as of this encounter Visit Diagnoses Diagnosis Abdominal pain, unspecified site- Primary Absence of menstruation documented in this encounter Care Teams Insurance Risk Analyst Relationship Specialty Start Date End Date Zachary Milton MD [address] [place] [address] [phone] PCP - General Family Practice 08/10/10 documented as of this encounter
--- OUTSIDE RECORDS SUMMARY | 2024-11-09 18:21 | XMS_ITS | Encounter Summary ---
Author Organization [facility] Address [address] [place] [address] Care Team Providers Care Steel Fixer Name Role Phone Zachary Milton MD Primary Care Provider [phone] Encounter Details Date Type Department Care Team (Latest Contact Info) Description 05/23/2005 Outpatient [facility] [address] [phone] Carol Aguiar MD [address] [place] [address] Polycystic Ovaries (Primary Dx); Abnormal Weight Gain Social History Tobacco Use Types Packs/Day Years Used Date Smoking Tobacco: Never Assessed Comments Unknown Sex and Gender Information Value Date Recorded Sex Assigned at Not on file Legal Sex Female 3:59 AM LENS BLOCKER Gender Identity Not on file Sexual Orientation Not on file documented as of this encounter Plan of Treatment Not on file documented as of this encounter Visit Diagnoses Diagnosis Polycystic ovaries- Primary Abnormal weight gain documented in this encounter Care Teams Steel Fixer Relationship Specialty Start Date End Date Zachary Milton MD [address] [place] [phone] PCP - General Family Practice 08/10/10 documented as of this encounter
--- OUTSIDE RECORDS SUMMARY | 2024-11-09 18:21 | XMS_ITS | Encounter Summary ---
Author Organization [facility] Address [address] [place] [address] Care Team Providers Care Manager Infusion Name Role Phone Zachary Milton MD Primary Care Provider [phone] Encounter Details Date Type Department Care Team (Latest Contact Info) Description 11/28/2004 Outpatient Historical [facility] Medicine [place] [address] [place] [phone] Sherie Humphries MD [address] [place] [phone] ABDOMINAL PAIN UNSPEC SITE (Primary Dx); DIARRHEA NOS; ABSENCE OF MENSTRUATION Social History Tobacco Use Types Packs/Day Years Used Date Smoking Tobacco: Never Assessed Comments Unknown Sex and Gender Information Value Date Recorded Sex Assigned at Not on file Legal Sex Female 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
--- OUTSIDE RECORDS SUMMARY | 2024-11-09 18:21 | XMS_ITS | Encounter Summary ---
Author Organization [facility] Address [address] [place] [address] Care Team Providers Care Suede Brusher Name Role Phone Zachary Milton MD Primary Care Provider Encounter Details Date Type Department Care Team (Latest Contact Info) Description 05/02/2005 Outpatient [facility] [address] [phone] Carol Aguiar MD [address] [place] [address] POLYCYSTIC OVARIES (Primary Dx); ACUTE FRONTAL SINUSITIS; ACUTE BRONCHITIS Social History Tobacco Use Types Packs/Day Years Used Date Smoking Tobacco: Never Assessed Comments Unknown Sex and Gender Information Value Date Recorded Sex Assigned at Not on file Legal Sex Female 3:59 AM PIN PUSHER Gender Identity Not on file Sexual Orientation Not on file documented as of this encounter Plan of Treatment Not on file documented as of this encounter Visit Diagnoses Diagnosis Polycystic ovaries- Primary Acute frontal sinusitis Acute bronchitis documented in this encounter Care Teams Suede Brusher Relationship Specialty Start Date End Date Zachary Milton MD [address] [place] [phone] PCP - General Family Practice 08/10/10 documented as of this encounter
--- OUTSIDE RECORDS SUMMARY | 2024-11-09 18:21 | XMS_ITS | Encounter Summary ---
Author Organization [facility] Address [address] [place] [address] Care Team Providers Care Broom Maker Name Role Phone Zachary Milton MD Primary Care Provider [phone] Encounter Details Date Type Department Care Team (Latest Contact Info) Description 01/09/2005 Outpatient Historical [facility] Medicine [place] [address] [place] [address] [phone] Kailee Dorsey, [facility] [address] [place] [phone] ACUTE PHARYNGITIS (Primary Dx); ABDOMINAL PAIN UNSPEC SITE; BIPOLAR - MOST RECENT EPISODE UNSPECIFIED (CMS/HCC); ABSENCE OF MENSTRUATION Social History Tobacco Use Types Packs/Day Years Used Date Smoking Tobacco: Never Assessed Comments Unknown Sex and Gender Information Value Date Recorded Sex Assigned at Not on file Legal Sex Female 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
--- OUTSIDE RECORDS SUMMARY | 2024-11-09 18:21 | XMS_ITS | Encounter Summary ---
Author Organization [facility] Address [address] [place] [address] Care Team Providers Care Middle School Professional Name Role Phone Zachary Milton MD Primary Care Provider [phone] Encounter Details Date Type Department Care Team (Late st Contact Info) Description 11/10/1998 Outpatient Historical [facility] [address] [place] [phone] Social History Tobacco Use Types Packs/Day Years Used Date Smoking Tobacco: Never Assessed Comments Unknown Sex and Gender Information Value Date Recorded Sex Assigned at Not on file Legal Sex Female 3:59 AM NECK PINNER Gender Identity Not on file Sexual Orientation Not on file documented as of this encounter Plan of Treatment Not on file documented as of this encounter Visit Diagnoses Not on filedocumented in this encounter Care Teams Middle School Professional Relationship Specialty Start Date End Date Zachary Milton MD [address] [place] [phone] PCP - General Family Practice 08/10/10 documented as of this encounter
--- OUTSIDE RECORDS SUMMARY | 2024-11-09 18:21 | XMS_ITS | Encounter Summary ---
Author Organization [facility] Address [address] [place] [address] Care Team Providers Care Mortgage Loan Computation Clerk Name Role Phone Zachary Milton MD Primary Care Provider [phone] Encounter Details Date Type Department Care Team (Latest Contact Info) Description 05/22/2005 Outpatient [facility] [address] [phone] Carol Aguiar MD [address] [place] [address] Unspecified Symptom Associated with Female Genital Organs (Primary Dx); Fever; Other Diseases of Nasal Cavity and Sinuses Social History Tobacco Use Types Packs/Day Years Used Date Smoking Tobacco: Never Assessed Comments Unknown Sex and Gender Information Value Date Recorded Sex Assigned at Not on file Legal Sex Female 3:59 AM OPERATIONS LABEL CLERK Gender Identity Not on file Sexual Orientation Not on file documented as of this encounter Plan of Treatment Not on file documented as of this encounter Visit Diagnoses Diagnosis Unspecified symptom associated with female genital organs- Primary Fever and other physiologic disturbances of temperature regulation Nasal/sinus dis NEC Other diseases of nasal cavity and sinuses documented in this encounter Care Teams Mortgage Loan Computation Clerk Relationship Specialty Start Date End Date aZchary Milton MD [address] [place] [phone] PCP - General Family Practice 08/10/10 documented as of this encounter
--- OUTSIDE RECORDS SUMMARY | 2024-11-09 18:21 | XMS_ITS | Encounter Summary ---
Author Organization [facility] Address [address] [place] [address] Care Team Providers Care Satellite Technician Name Role Phone Zachary Milton MD Primary Care Provider [phone] Encounter Details Date Type Department Care Team (Latest Contact Info) Description 11/25/2004 Outpatient Historical [facility] Medicine [place] [address] [place] [address] [phone] Kailee Dorsey, [facility] [address] [place] [address] [phone] ABDOMINAL PAIN RUQ (Primary Dx); ABDOMINAL PAIN RLQ; DIARRHEA NOS; ABSENCE OF MENSTRUATION Social History Tobacco Use Types Packs/Day Years Used Date Smoking Tobacco: Never Assessed Comments Unknown Sex and Gender Information Value Date Recorded Sex Assigned at Not on file Legal Sex Female 3:59 AM SHUTTLE BUS DRIVER Gender Identity Not on file Sexual Orientation Not on file documented as of this encounter Plan of Treatment Not on file documented as of this encounter Visit Diagnoses Diagnosis Abdominal pain, right upper quadrant- Primary Abdominal pain, right lower quadrant Diarrhea Absence of menstruation documented in this encounter Care Teams Satellite Technician Relationship Specialty Start Date End Date Zachary Milton MD [address] [place] [address] [phone] PCP - General Family Practice 08/10/10 documented as of this encounter
--- OUTSIDE RECORDS SUMMARY | 2024-11-09 18:21 | XMS_ITS | Encounter Summary ---
Author Organization [facility] Address [address] [place] [address] Care Team Providers Care Entry Level Programmer Name Role Phone Zachary Milton MD Primary Care Provider [phone] Encounter Details Date Type Department Care Team (Latest Contact Info) Description 01/12/2005 Outpatient Historical [facility] Medicine [place] [address] [place] [address] [phone] Kailee Dorsey, [facility] [address] [place] [address] [phone] ACUTE FRONTAL SINUSITIS (Primary Dx) Social History Tobacco Use Types Packs/Day Years Used Date Smoking Tobacco: Never Assessed Comments Unknown Sex and Gender Information Value Date Recorded Sex Assigned at Not on file Legal Sex Female 3:59 AM SENIOR LIVING ADVISOR Gender Identity Not on file Sexual Orientation Not on file documented as of this encounter Plan of Treatment Not on file documented as of this encounter Visit Diagnoses Diagnosis Acute frontal sinusitis- Primary documented in this encounter Care Teams Entry Level Programmer Relationship Specialty Start Date End Date Zachary Milton MD [address] [place] [address] [phone] PCP - General Family Practice 08/10/10 documented as of this encounter
--- OUTSIDE RECORDS SUMMARY | 2024-11-09 18:21 | XMS_ITS | Encounter Summary ---
Author Organization [facility] Address [address] [place] [address] Care Team Providers Care Opto Mechanical Engineer Name Role Phone Zachary Milton MD Primary Care Provider [phone] Encounter Details Date Type Department Care Team (Latest Contact Info) Description 10/26/2004 Outpatient Historical [facility] [address] [place] [address] [phone] Kennedy Roberts, COMMERCIAL ESTIMATOR [address] [place] [address] FEM PELV INFLAM DIS NOS (Primary Dx) Social History Tobacco Use Types Packs/Day Years Used Date Smoking Tobacco: Never Assessed Comments Unknown Sex and Gender Information Value Date Recorded Sex Assigned at Not on file Legal Sex Female 3:59 AM WIRELESS OPERATOR Gender Identity Not on file Sexual Orientation Not on file documented as of this encounter Plan of Treatment Not on file documented as of this encounter Visit Diagnoses Diagnosis Unspecified inflammatory disease of female pelvic organs and tissues- Primary documented in this encounter Care Teams Opto Mechanical Engineer Relationship Specialty Start Date End Date Zachary Milton MD [address] [place] [address] [phone] PCP - General Family Practice 08/10/10 documented as of this encounter
--- OUTSIDE RECORDS SUMMARY | 2024-11-09 18:21 | XMS_ITS | Encounter Summary ---
Author Organization [facility] Address [address] [place] [address] Care Team Providers Care Neonatal Intensive Care Unit Nurse Name Role Phone Zachary Milton MD Primary Care Provider [phone] Encounter Details Date Type Department Care Team (Latest Contact Info) Description 10/26/2004 Outpatient Historical [facility] [address] [place] [phone] Kennedy Roberts, INFORMATION RESOURCE CONSULTANT [address] [place] [address] ROUTINE ADVANCED REGISTERED NURSE EXAMINATION (Primary Dx) Social History Tobacco Use Types Packs/Day Years Used Date Smoking Tobacco: Never Assessed Comments Unknown Sex and Gender Information Value Date Recorded Sex Assigned at Not on file Legal Sex Female 3:59 AM WHIPPED TOPPING SUPERVISOR Gender Identity Not on file Sexual Orientation Not on file documented as of this encounter Plan of Treatment Not on file documented as of this encounter Visit Diagnoses Diagnosis Routine gynecological examination- Primary documented in this encounter Care Teams Neonatal Intensive Care Unit Nurse Relationship Specialty Start Date End Date Zachary Milton MD [address] [place] [phone] PCP - General Family Practice 08/10/10 documented as of this encounter
--- OUTSIDE RECORDS SUMMARY | 2024-11-09 18:22 | XMS_ITS | Encounter Summary ---
Author Organization [facility] Address [address] [place] [address] Care Team Providers Care Technology Professional Name Role Phone Zachary Milton MD Primary Care Provider [phone] Encounter Details Date Type Department Care Team (Late st Contact Info) Description 04/10/2004 Outpatient Historical [facility] [address] [place] [address] AMBULANCE, [facility] Social History Tobacco Use Types Packs/Day Years Used Date Smoking Tobacco: Never Assessed Comments Unknown Sex and Gender Information Value Date Recorded Sex Assigned at Not on file Legal Sex Female 3:59 AM SENIOR PRINCIPAL Gender Identity Not on file Sexual Orientation Not on file documented as of this encounter Plan of Treatment Not on file documented as of this encounter Visit Diagnoses Not on filedocumented in this encounter Care Teams Technology Professional Relationship Specialty Start Date End Date Zachary Milton MD [address] [place] [address] PCP - General Family Practice 08/10/10 documented as of this encounter
--- OUTSIDE RECORDS SUMMARY | 2024-11-09 18:22 | XMS_ITS | Encounter Summary ---
Author Organization [facility] Address [address] [place] [address] Care Team Providers Care Licensed Mortgage Loan Officer Name Role Phone Zachary Milton MD Primary Care Provider [phone] Encounter Details Date Type Department Care Team (Latest Contact Info) Description 09/08/2003 Outpatient Historical [facility] Medicine [place] [address], [place] [phone] Rancho Oliva MD [address] [place] [phone] ELEV BL PRES W/O HYPERTN (Primary Dx); ABNORMAL WEIGHT GAIN Social History Tobacco Use Types Packs/Day Years Used Date Smoking Tobacco: Never Assessed Comments Unknown Sex and Gender Information Value Date Recorded Sex Assigned at Not on file Legal Sex Female 3:59 AM SUPERVISOR LEAD REFINERY Gender Identity Not on file Sexual Orientation Not on file documented as of this encounter Plan of Treatment Not on file documented as of this encounter Visit Diagnoses Diagnosis Elevated blood pressure reading without diagnosis of hypertension- Primary Abnormal weight gain documented in this encounter Care Teams Licensed Mortgage Loan Officer Relationship Specialty Start Date End Date Zachary Milton MD [address] [place] [address] [phone] PCP - General Family Practice 08/10/10 documented as of this encounter
--- OUTSIDE RECORDS SUMMARY | 2024-11-09 18:22 | XMS_ITS | Encounter Summary ---
Author Organization [facility] Address [address] [place] [address] Care Team Providers Care Packing Machine Tender Name Role Phone Zachary Milton MD Primary Care Provider [phone] Encounter Details Date Type Department Care Team (Latest Contact Info) Description 09/28/2006 Outpatient Historical [facility] Medicine [place] [address] [place] [address] [phone] Kailee Dorsey, [facility] [address] [place] [address] [phone] Gonococcal Infection of Other Specified Sites (Primary Dx) Social History Tobacco Use Types Packs/Day Years Used Date Smoking Tobacco: Never Assessed Comments Unknown Sex and Gender Information Value Date Recorded Sex Assigned at Not on file Legal Sex Female 3:59 AM TUBE FITTER Gender Identity Not on file Sexual Orientation Not on file documented as of this encounter Plan of Treatment Not on file documented as of this encounter Visit Diagnoses Diagnosis Gonococcal infection of other specified sites(098.89)- Primary Gonococcal infection of other specified sites documented in this encounter Care Teams Packing Machine Tender Relationship Specialty Start Date End Date Zachary Milton MD [address] [place] [address] [phone] PCP - General Family Practice 08/10/10 documented as of this encounter
--- OUTSIDE RECORDS SUMMARY | 2024-11-09 18:22 | XMS_ITS | Encounter Summary ---
Author Organization [facility] Address [address] [place] [address] Care Team Providers Care Supervisor Orchard Name Role Phone Zachary Milton MD Primary Care Provider [phone] Encounter Details Date Type Department Care Team (Latest Contact Info) Description 02/11/1999 Outpatient Historical [facility] Ear, Nose and Throat [address] [place] [phone] [facility] [address] [place], [address] [place], [place] [phone] Impacted cerumen (Primary Dx) Social History Tobacco Use Types Packs/Day Years Used Date Smoking Tobacco: Never Assessed Comments Unknown Sex and Gender Information Value Date Recorded Sex Assigned at Not on file Legal Sex Female 3:59 AM FINANCIAL AID OFFICER Gender Identity Not on file Sexual Orientation Not on file documented as of this encounter Plan of Treatment Not on file documented as of this encounter Visit Diagnoses Diagnosis Impacted cerumen- Primary documented in this encounter Care Teams Supervisor Orchard Relationship Specialty Start Date End Date Zachary Milton MD [address] [place] [address] PCP - General Family Practice 08/10/10 documented as of this encounter
--- OUTSIDE RECORDS SUMMARY | 2024-11-09 18:22 | XMS_ITS | Encounter Summary ---
Author Organization [facility] Address [address] [place] [address] Care Team Providers Care Striper Machine Name Role Phone Zachary Milton MD Primary Care Provider [phone] Encounter Details Date Type Department Care Team (Latest Contact Info) Description 09/28/2005 Outpatient [facility] [address] [place] [address] [phone] Kennedy Roberts, JET OPERATOR [address] [place], [place] [address] Unspecified Infective Otitis Externa (Primary Dx); Acute Pharyngitis; Allergic Rhinitis, Cause Unspecified; Irregular Menstruation Social History Tobacco Use Types Packs/Day Years Used Date Smoking Tobacco: Never Assessed Comments Unknown Sex and Gender Information Value Date Recorded Sex Assigned at Not on file Legal Sex Female 3:59 AM VOICER Gender Identity Not on file Sexual Orientation Not on file documented as of this encounter Plan of Treatment Not on file documented as of this encounter Visit Diagnoses Diagnosis Infective otitis externa, unspecified- Primary Acute pharyngitis Allergic rhinitis, cause unspecified Irregular menstruation Irregular menstrual cycle documented in this encounter Care Teams Striper Machine Relationship Specialty Start Date End Date Zachary Milton MD [address] [place] [address] [phone] PCP - General Family Practice 08/10/10 documented as of this encounter
--- OUTSIDE RECORDS SUMMARY | 2024-11-09 18:22 | XMS_ITS | Encounter Summary ---
Author Organization [facility] Address [address] [place] [address] Care Team Providers Care Innersole Maker Name Role Phone Zachary Milton MD Primary Care Provider [phone] Encounter Details Date Type Department Care Team [...] on file Legal Sex Female 3:59 AM TANDEM MILL OPERATOR Gender Identity Not on file Sexual [...] Medication reactions: Augmentin Does this physician utilize [facility] e-prescribing or treatment protocol? N/A Instructed to [...] on filedocumented in this encounter Care Teams Innersole Maker Relationship Specialty Start Date End Date Zachary Milton MD [address], [place] [address] PCP - General Family Practice 08/10/10 documented as of this encounter
--- OUTSIDE RECORDS SUMMARY | 2024-11-09 18:22 | XMS_ITS | Encounter Summary ---
Author Organization [facility] Address [address] [place] [address] Care Team Providers Care Basketball Assembler Name Role Phone Zachary Milton MD Primary Care Provider [phone] Encounter Details Date Type Department Care Team (Latest Contact Info) Description 11/10/1998 Outpatient Historical [facility] Ear, Nose and Throat 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
--- OUTSIDE RECORDS SUMMARY | 2024-11-09 18:22 | XMS_ITS | Encounter Summary ---
Author Organization [facility] Address [address] [place] [address] Care Team Providers Care Flame Cutting Supervisor Name Role Phone Zachary Milton MD Primary Care Provider [phone] Encounter Details Date Type Department Care Team (Latest Contact Info) Description 08/31/2006 Outpatient Historical [facility] Medicine [place] [address] [place] [address] [phone] Kailee Dorsey, [facility] [address] [place] [address] [phone] Leukorrhea, not Specified as Infective (Primary Dx); Absence of Menstruation; Nausea Alone; Viral Warts, Unspecified Social History Tobacco Use Types Packs/Day Years Used Date Smoking Tobacco: Never Assessed Comments Unknown Sex and Gender Information Value Date Recorded Sex Assigned at Not on file Legal Sex Female 3:59 AM COMMERCIAL GLAZIER Gender Identity Not on file Sexual Orientation Not on file documented as of this encounter Plan of Treatment Not on file documented as of this encounter Visit Diagnoses Diagnosis Leukorrhea, not specified as infective- Primary Absence of menstruation Nausea alone Viral warts, unspecified documented in this encounter Care Teams Flame Cutting Supervisor Relationship Specialty Start Date End Date Zachary Milton MD [address] [place] [phone] PCP - General Family Practice 08/10/10 documented as of this encounter
--- OUTSIDE RECORDS SUMMARY | 2024-11-09 18:22 | XMS_ITS | Clinical Summary ---
Author Organization [facility] Address [address] [place] [address] Care Team Providers Care Joinery Factory Worker Name Role Phone Zachary Milton MD Primary Care Provider [phone] Allergies Active Allergy Reactions Criticality Noted Date [...] 1 Active fluticasone propionate (FLONASE) 50 mcg/spray [place], Suspension nasal inhaler Administer 2 Sprays in [...] Overview (06/12/2012): Patient states baby transported to [facility] d/t breathing problems. 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 Gender Identity Not on file Sexual Orientation [...] 3-dose series) 07/23/1999 Preventative Visit-Managed Medicaid 07/23/1999 HPV VACCINES (1 - 3-dose SCDM series) 07/23/2007 HPV/Cotest (21-29) 08/19/2015 08/18/2010 HPV/Cotest (30-65) 08/19/2015 08/18/2010 CERVICAL CANCER SCREENING 08/05/2017 PAP SMEAR 08/05/2017 08/05/2014, 01/03, 08/18/2010 BREAST CANCER SCREENING 2020 Pre-Diabetes and Diabetes Screening 08/30/202008/30, 05/11/2016 INFLUENZA VACCINE (#1) 2024 9, 02/02/2018, 07/27/2016 DTAP/TDAP/TD VACCINES (3 - T d or Tdap) 07/27/2026 07/27/2016, 11/01/2014, 04/10/2004 Procedures Procedure Name Priority Date/Time Associated Diagnosis Comments HEMOGLOBIN A1C Routine 08/30/2017 11:31 AM CDT History of gestational diabetes CERV/VAG CYTOPATH, THIN PREP HEAD BELLHOP CAPTAIN Routine 08/05/2014 2:22 PM CDT CERV/VAG CYTOPATH, THIN PREP W/RFLX HPV Routine 08/18/2010 8:53 AM CDT from Last 3 Months or Most Recently Relevant to Health Maintenance Results * HEMOGLOBIN A1C (08/30/2017 11:31 AM CDT) HEMOGLOBIN A1C 5.5 4.0 - 6.0 % 08/30/2017 9:45 PM CDT [facility] EST. AVG GLUCOSE, A1C 111 mg/dL 08/30/2017 9:45 PM CDT [facility] Blood Venipuncture / Unknown 08/30/2017 11:31 AM CDT 08/30/2017 8:21 PM CDT Narrative [facility] - 08/30/2017 9:45 PM CDT HGB A1C INTERPRETATION NORMAL: <5.7% PRE-DIABETES: 5.7 - 6.4% DIABETES: 6.5% OR GREATER Falsely low A1C measurements can occur when: 1. Anemia and/or hemolytic anemia is present. 2. Hemoglobin variants present. 3. Renal failure. 4. Transfusion of blood product in the last 120 days. We recommend ordering a fructosamine test([id number]) to more accurately assess glycemic status if any of the above conditions are present. Kailee Dorsey EQUIPMENT MAINTENANCE ENGINEER CHEMISTRY ORDERABLES Final Re sult [facility] CLIA# [id number] [address] [place] [address] * CERV/VAG CYTOPATH, THIN PREP HEAD BELLHOP CAPTAIN (08/05/2014 2:22 PM CDT) PATHOLOGY/PIETRO ROSS REPORT [facility] Anatomic Pathology Dept [address] [facility] [address] Patient: JIMMIE GARCÍA Accn No: [id number] , [id number] Collected: 08/05/2014 2:22:00 PM All cases except those with a DP prefix are performed by pathologists from [facility]-Pathology at [facility]. Case type DP is performed by Dr. Oscar Riggs, [facility], [facility], [address], [address], [place] [address] (CLIA #[id number]) (Ph. [phone]). CYTOLOGY RETAIL ACCOUNT EXECUTIVE FINAL REPORT - - HEAD BELLHOP CAPTAIN PAP History Specimen Type: Endocervical Previous Pap History: None Provided Specimen Adequacy Satisfactory for interpretation. The smear lacks endocervical or metaplastic cells. Diagnosis NEGATIVE FOR INTRAEPITHELIAL LESION OR MALIGNANCY. (Previously noted as Within Normal Limits) Powertrain Calibration Engineer/ CHUY Pathologist: 08/19/14 Completed by: STEFANY VASQUEZ [...] treating physician in consultation with his/her patient. [facility] 08/05/2014 2:22 PM CDT Kailee Dorsey EQUIPMENT MAINTENANCE ENGINEER PATHOLOGY/CYTOLOGY ORDERABLES Edited Result - Final [facility] CLIA# [id number] [address] [place] [address] * CERV/VAG CYTOPATH, THIN PREP W/RFLX HPV (08/18/2010 8:53 AM CDT) TH THIN PREP CYTOLOGY REPORT REFLEX HPV [facility] Anatomic Pathology Dept [address] [facility] [address] Patient: JIMMIE GARCÍA Accn No: [id number] , [id number] Collected: 08/18/2010 8:53:00 AM All cases except those with a DP prefix are performed by pathologists from [facility] at [facility]. Case type DP is performed by Dr. Oscar Riggs, [facility], [facility], [address], [address], [place] [address] (CLIA #[id number]) (Ph. [phone]). THIN PREP PAP - REFLEX HPV History Specimen Type: Endocervical LMP: 611 Post- Previous Pap History: None Provided Specimen Adequacy Satisfactory for interpretation. Shows sufficient numbers of endocervical or metaplastic cells. Diagnosis NEGATIVE FOR INTRAEPITHELIAL LESION OR MALIGNANCY. (Prevously noted as Within Normal Limits). Powertrain Calibration Engineer/ CATIAM Pathologist: 08/25/10 Completed by: STEFANY VASQUEZ BSNANDINI(ASCP) (Electronically signed by) 08/25/10 Comment Routine follow-up [...] treating physician in consultation with his/her patient. [facility] 08/18/2010 8:53 AM CDT us Kailee Dorsey EQUIPMENT MAINTENANCE ENGINEER PATHOLOGY/CYTOLOGY ORDERABLES Edited INTERFACE SYSTEM Refer to clinic/hospital department [facility] CLIA# [id number] [address] [place] [address] from Last 3 Months or Most Recently Relevant to Health Maintenance [place] [address] [place] [address] HEALTH PLAN [facility] Advance Directives For more information, please contact: [phone] * Full Code (Latest Code Status on [...] 3:57 PM 07/26/2016 6:53 PM Care Teams Joinery Factory Worker Relationship Specialty Start Date End Date Zachary Milton MD [address] [place] [address] PCP - General Family Practice 08/10/10
--- OUTSIDE RECORDS SUMMARY | 2024-11-09 18:22 | XMS_ITS | Encounter Summary ---
Author Organization [facility] Address [address] [place] [address] Care Team Providers Care Tool Dispatcher Name Role Phone Zachary Milton MD Primary Care Provider [phone] Encounter Details Date Type Department Care Team (Latest Contact Info) Description 01/05/1999 Outpatient Historical [facility] Ear, Nose and Throat [address] [place] [phone] [facility] [address] [place], [address] [place], [place] [address] Perforation of tympanic membrane, unspecified (Primary Dx) Social History Tobacco Use Types Packs/Day Years Used Date Smoking Tobacco: Never Assessed Comments Unknown Sex and Gender Information Value Date Recorded Sex Assigned at Not on file Legal Sex Female 3:59 AM RECRUITMENT COORDINATOR Gender Identity Not on file Sexual Orientation Not on file documented as of this encounter Plan of Treatment Not on file documented as of this encounter Visit Diagnoses Diagnosis Perforation of tympanic membrane, unspecified- Primary documented in this encounter Care Teams Tool Dispatcher Relationship Specialty Start Date End Date Zachary Milton MD [address] [place] [address] PCP - General Family Practice 08/10/10 documented as of this encounter
--- OUTSIDE RECORDS SUMMARY | 2024-11-09 18:22 | XMS_ITS | Encounter Summary ---
Author Organization [facility] Address [address] [place] [address] Care Team Providers Care Communications Agent Name Role Phone Zachary Milton MD Primary Care Provider [phone] Encounter Details Date Type Department Care Team [...] on file Legal Sex Female 3:59 AM LYE BATH OPERATOR Gender Identity Not on file Sexual Orientation Not on file Occupation Industry Job Start Date Job End Date Not on file Not on file Not on file Not on file documented as of this encounter Progress Notes * Carol Landeros, RN - 08/12/2014 8:32 AM CDT CHART DOCUMENTATION ONLY Call Type: Triage Call Addendum Date and Time [id number] Presenting Problem: I am 27 weeks and I am having cramping. per RN report feedback to JOURNEYMAN MOLDER [place] Associated Symptoms: cramping, pelvis pain that [...] PCN <<<<<<<< TRIAGE NOTE >>>>>>>> Triage Note: Test Kitchen Home Economist Carol Landeros added this note on Aug 12 2014 [...] on filedocumented in this encounter Care Teams Communications Agent Relationship Specialty Start Date End Date Zachary Milton MD [address] [place] [address] PCP - General Family Practice 08/10/10 documented as of this encounter
--- OUTSIDE RECORDS SUMMARY | 2024-11-09 18:22 | XMS_ITS | Encounter Summary ---
Author Organization [facility] Address [address] [place] [address] Care Team Providers Care Color Printer Operator Name Role Phone Zachary Milton MD Primary Care Provider [phone] Encounter Details Date Type Department Care Team (Latest Contact Info) Description 09/13/2006 Outpatient Historical [facility] [place] [address] [place] [address] [phone] Kailee Dorsey, [facility] [address] [place] [phone] Abdominal Pain, Unspecified Site (Primary Dx); Nausea Alone; Absence of Menstruation Social History Tobacco Use Types Packs/Day Years Used Date Smoking Tobacco: Never Assessed Comments Unknown Sex and Gender Information Value Date Recorded Sex Assigned at Not on file Legal Sex Female 3:59 AM FLYING SHEAR OPERATOR Gender Identity Not on file Sexual Orientation Not on file documented as of this encounter Plan of Treatment Not on file documented as of this encounter Visit Diagnoses Diagnosis Abdominal pain, unspecified site- Primary Nausea alone Absence of menstruation documented in this encounter Care Teams Color Printer Operator Relationship Specialty Start Date End Date Zachary Milton MD [address] [place] [phone] PCP - General Family Practice 08/10/10 documented as of this encounter
--- OUTSIDE RECORDS SUMMARY | 2024-11-09 18:22 | XMS_ITS | Encounter Summary ---
Author Organization [facility] Address [address] [place] [address] Care Team Providers Care Aircraft Captain Name Role Phone Zachary Milton MD Primary Care Provider [phone] Encounter Details Date Type Department Care Team (Latest Contact Info) Description 09/03/2003 Outpatient Historical [facility] Medicine [place] [address], [place] [phone] Rancho Oliva MD [address], [place] [phone] GYNECOLOGIC EXAMINATION (Primary Dx) Social History Tobacco Use Types Packs/Day Years Used Date Smoking Tobacco: Never Assessed Comments Unknown Sex and Gender Information Value Date Recorded Sex Assigned at Not on file Legal Sex Female 3:59 AM BIOLOGY INTERN Gender Identity Not on file Sexual Orientation Not on file documented as of this encounter Plan of Treatment Not on file documented as of this encounter Visit Diagnoses Diagnosis Gynecological examination- Primary documented in this encounter Care Teams Aircraft Captain Relationship Specialty Start Date End Date Zachary Milton MD [address] [place] [phone] PCP - General Family Practice 08/10/10 documented as of this encounter
--- OUTSIDE RECORDS SUMMARY | 2024-11-09 18:22 | XMS_ITS | Encounter Summary ---
Author Organization [facility] Address [address] [place] [address] Care Team Providers Care Alteration Manager Name Role Phone Zachary Milton MD Primary Care Provider [phone] Encounter Details Date Type Department Care Team (Latest Contact Info) Description 05/25/2005 Outpatient [facility] [address] [phone] Carol Aguiar MD [address] [place] [address] Other Abnormal Clinical Finding (Primary Dx) Social History Tobacco Use Types Packs/Day Years Used Date Smoking Tobacco: Never Assessed Comments Unknown Sex and Gender Information Value Date Recorded Sex Assigned at Not on file Legal Sex Female 3:59 AM MAKEUP INSTRUCTOR Gender Identity Not on file Sexual Orientation Not on file documented as of this encounter Plan of Treatment Not on file documented as of this encounter Procedures Procedure Name Priority Date/Time Associated Diagnosis Comments ACUTE HEPATITIS PANEL Routine 05/25/2005 10:08 AM MAKEUP INSTRUCTOR documented in this encounter Results * ACUTE HEPATITIS PANEL (05/25/2005 10:08 AM MAKEUP INSTRUCTOR) HEPATITIS B SURFACE AG Negative Negative INTERFACE [...] RNA is desired. 05/25/2005 10:0 8 AM MAKEUP INSTRUCTOR us Carol Aguiar MD CHEMISTRY ORDERABLES Final R esult INTERFACE SYSTEM Refer to clinic/hospital department documented in this encounter Visit Diagnoses Diagnosis Other abnormal clinical finding- Primary documented in this encounter Care Teams Alteration Manager Relationship Specialty Start Date End Date Zachary Milton MD [address] [place] [address] PCP - General Family Practice 08/10/10 documented as of this encounter
--- OUTSIDE RECORDS SUMMARY | 2024-11-09 18:22 | XMS_ITS | Clinical Summary ---
Author Organization [facility] Address [address] [place] [address] Care Team Providers Care Teaching Specialists Name Role Phone John Noel MD Primary Care Provider [phone] Allergies Active Allergy Reactions Criticality Noted Date [...] (06/30/2020): Patient states baby transported to NICU [facility] d/t breathing problems. Review of child's chart [...] hypertension, antepartum 01/15/2012 12/02/2021 confirmed 11/12/2009 05/24/19 19 Encounters Date Type Department Care Team Description 10/07/2024 External Device Data ST[facility] ABSTRACTION Provider, Abstract 09/17/2024 External Device Data [facility] ABSTRACTION Provider, Abstract 09/17/2024 External Device Data [facility] ABSTRACTION Provider, Abstract 09/16/2024 External Device Data [facility] ABSTRACTION Provider, Abstract 09/02/2024 Orders Only [facility] [place] [address] [place] [address] Lv Irving MD Left knee pain, unspecified chronicity (Primary Dx) 08/28/2024 Telephone [place] [address] [place] [address] Lv Irving MD [facility] 08/22/2024 Telephone [place] [address] [facility] [place] [address] Lv Irving MD General 08/19/2024 External Device Data [facility] ABSTRACTION Provider, Abstract from Last 3 Months Immunizations Immunization Administration [...] AM CDT Legal Sex Female 5:04 PM DIGITAL EDITOR Gender Identity Female 11/26/2023 10:52 AM CDT Sexual Orientation Straight 11/26/2023 10 :52 AM CDT Last Filed Vital Signs Vital Sign Reading Time Taken Comments Blood Pressure 145/88 08/01/2024 2:04 PM CDT Pulse 89 04/03/2024 1:56 PM DIGITAL EDITOR Temperature 36.1 C (96.9 F) 04/03/2024 1:56 PM DIGITAL EDITOR Respiratory Rate 20 04/03/2024 1:56 PM DIGITAL EDITOR Oxygen Saturation 98% 04/03/2024 1:56 PM DIGITAL EDITOR Inhaled Oxygen Concentration - - Weight 132.5 kg (292 lb) 08/01/2024 2:04 PM CDT Height 170.2 cm (5' 7 ) 08/01/2024 2:04 PM CDT Body Mass Index 45.73 08/01/2024 2:04 PM CDT Plan of Treatment Health Maintenance Due Date Last Done Comments HEPATITIS B VACCINES (1 of 3 - 19+ 3-dose series) 07/23/1999 Preventative Visit-Managed Medicaid 07/23/1999 HPV/Cotest (21-29) 2001 HPV VACCINES (1 - 3-dose SCD M series) 07/23/2007 HPV/Cotest (30-65) 2010 CERVICAL CANCER SCREENING 08/05/2017 PAP SMEAR 08/05/2017 08/05/2014 BREAST CANCER SCREENING 2020 INFLUENZA VACCINE (#1) 2024 2, 05/21/2018, 02/02/2018, Additional history exists Pre-Diabetes and Diabetes Screening 05/01/2026 05/01/2023, 08/30/2017, 05/11/2016 DTAP/TDAP/TD VACCINES (3 - T d or Tdap) 07/27/2026 07/27/2016, 11/01/2014, 04/10/2004 Procedures Procedure Name Priority Date/Time Associated Diagnosis Comments HEMOGLOBIN A1C Routine 05/01/2023 10:46 AM DIGITAL EDITOR Essential hypertension CERV/VAG CYTOPATH, THIN PREP CHLORINATOR Routine 08/05/2014 2:22 PM CDT from Last 3 Months or Most Recently Relevant to Health Maintenance Results * HEMOGLOBIN A1C (05/01/2023 10:46 AM DIGITAL EDITOR) HEMOGLOBIN A1C 5.3 <5.7 % of total Hgb [employer] Comment: For the purpose of screening for the presence of diabetes: <5.7% Consistent with the absence of diabetes 5.7-6.4% Consistent with increased risk for diabetes (prediabetes) > or =6.5% Consistent with diabetes This assay result is consistent with a decreased risk of diabetes. Currently, no consensus exists regarding use of hemoglobin A1c for diagnosis of diabetes in children. According to [place] Diabetes Association (ADA) guidelines, hemoglobin A1c <7.0% represents optimal control in non- diabetic patients. Different metrics may apply to specific patient populations. Standards of Medical Care in Diabetes(ADA). ESTIMATED AVERAGE GLUCOSE (MG/DL) 105 mg/dL [employer] ESTIMATED AVERAGE GLUCOSE (MMOL/L) 5.8 mmol/L [employer] Comment: This test was performed on the [employer] c8000 platform. Please be advised that [email or web address] will move hemoglobin A1c testing to the Erica platform soon. In general, direct comparison of the results from different platforms is not recommended. Test Performed at: [facility] [address] [facility] [place] [address] Kaleb Rodriguez MD Blood 05/01/2023 10:4 6 AM DIGITAL EDITOR 05/02/2023 3:41 AM DIGITAL EDITOR Melissa Cool OVERNIGHT STOCKER CHEMISTRY ORDERABLES Cecilia babin Result [facility] [phone] [employer] [facility] [address] [facility] [place] [address] * CERV/VAG CYTOPATH, THIN PREP CHLORINATOR (08/05/2014 2:22 PM CDT) PATHOLOGY/CY ANNELIESEOGY REPORT [facility] Anatomic Pathology Dept [address] [place] [address] Patient: JIMMIE GARCÍA Accn No: [id number] , [id number] Collected: 08/05/2014 2:22:00 PM All cases except those with a DP prefix are performed by pathologists from [facility] at [facility]. Case type DP is performed by Dr. Oscar Riggs, [facility], [facility], [address], [address], [place] [address] (CLIA #[id number]) (Ph. [phone]). CYTOLOGY MANAGER TRANSPORT FINAL REPORT - - CHLORINATOR PAP History Specimen Type: Endocervical Previous Pap History: None Provided Specimen Adequacy Satisfactory for interpretation. The smear lacks endocervical or metaplastic cells. Diagnosis NEGATIVE FOR INTRAEPITHELIAL LESION OR MALIGNANCY. (Previously noted as Within Normal Limits) Entry Level Machine Operator/ CATIAM Pathologist: 08/19/14 Completed by: STEFANY VASQUEZ BSCT(ASCP) [...] with his/her patient. 08/19/2014 2:43 PM CDT [facility] [employer] [facility] 08/05/2014 2:22 PM CDT Narrative [facility] [employer] [facility] - 08/19/2014 2:43 PM CDT Cerner Ordered:IM Cytology Grease Buffer Final School Psychological Examiner PAP Report:# Kailee Dorsey OVERNIGHT STOCKER PATHOLOGY/CYTOLOGY ORDERABLES Edited Result - Final [facility]# [id number] [address] [place] [address] [facility] [employer] [facility] CLIA # [id number] [address] [facility] [place] [address] from Last 3 Months or Most Recently Relevant to Health Maintenance Insurance [id number] [employer] MEDICAID Care Teams Teaching Specialists Relationship Specialty Start Date End Date John Noel MD [address] [place] [phone] PCP - General Family Practice 02/29/24
--- OUTSIDE RECORDS SUMMARY | 2024-11-09 18:22 | XMS_ITS | Encounter Summary ---
Author Organization [facility] Address [address] [place] [address] Care Team Providers Care Superintendent Job Name Role Phone Zachary Milton MD Primary Care Provider [phone] Reason for Referral * Outpatient Services (Routine) - Closed Specialty Diagnoses / Procedures Referred By Tara gauthier Referred To Contact Radiology Diagnoses Encounter for routine screening for malformation using ultrasonics Procedures US OB 14+ WKS + TV CERV LENGTH US OB 14+ WKS SINGLE GEST Kailee Dorsey FNP [address] [place] [phone] Phone: tel: fax: [facility]3] [facility] [address] [place] [address] Phone: tel: fax: Referral ID Status Reason Start Date Expiration Date Visits Re quested Visits Authorized [id number] Closed 07/08/2014 08/08/2015 1 1 Encounter Details Date Type Department Care Team (Latest Contact Info) Description 07/08/2014 Ancillary Orders [facility]3] Family Medicine [place] [address] [place] [phone] Kailee Dorsey FNP [address] [place] [phone] Supervision of other normal , second trimester [...] on file Legal Sex Female 3:59 AM WELT SOLE LAYER Gender Identity Not on file Sexual Orientation [...] The standard criteria put forth by the [place] of Ultrasound in Medicine (AIUM) are not met. Tech: Vida Patel RDMS Narrative 07/08/2014 12:58 PM CDT OBSTETRICAL ULTRASOUND REPORT Requested by: Kailee Dorsey FNP Indication(s): Morphology CPT: 81012 - Complete OB Ultrasound DESCRIPTION Number: escalera [...] AIUM Criteria (*) ns us Kailee Dorsey TASSEL SNIPPER US ORDERABLES Final Result documented in this encounter Visit Diagnoses Diagnosis Supervision of other normal , second trimester- Primary Encounter for routine screening for malformation using ultrasonics documented in this encounter Care Teams Superintendent Job Relationship Specialty Start Date End Date Zachary Milton MD [address] [place] [address] PCP - General Family Practice 08/10/10 documented as of this encounter
--- OUTSIDE RECORDS SUMMARY | 2024-11-09 18:22 | XMS_ITS | Encounter Summary ---
Author Organization [facility] Address [address] [place] [address] Care Team Providers Care Assembler Knife Name Role Phone Zachary Milton MD Primary Care Provider [phone] Encounter Details Date Type Department Care Team (Latest Contact Info) Description 06/16/2005 Outpatient Historical [facility] Medicine [place] [address] [place] [address] [phone] Kennedy Roberts, DIRECTOR BUSINESS DEVELOPMENT [address] [place], [place] [phone] Unspecified Chest Pain (Primary Dx); Sprain and Strain of Unspecified Site of Knee and Leg Social History Tobacco Use Types Packs/Day Years Used Date Smoking Tobacco: Never Assessed Comments Unknown Sex and Gender Information Value Date Recorded Sex Assigned at Not on file Legal 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
--- OUTSIDE RECORDS SUMMARY | 2024-11-09 18:22 | XMS_ITS | Encounter Summary ---
Author Organization [facility] Address [address] [place] [address] Care Team Providers Care Event Sales Representative Name Role Phone Zachary Milton MD Primary Care Provider [phone] Encounter Details Date Type Department Care Team (Latest Contact Info) Description 05/25/2005 Outpatient [facility] Family [address] [phone] Carol Aguiar MD [address] [place] [address] Unspecified Symptom Associated with Female Genital Organs (Primary Dx); Menstrual Disorder NEC; Nonspecific Abnormal Results of Liver Function Study Social History Tobacco Use Types Packs/Day Years Used Date Smoking Tobacco: Never Assessed Comments Unknown Sex and Gender Information Value Date Recorded Sex Assigned at Not on file Legal Sex Female 3:59 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 Gender Identity Not on file Sexual Orientation Not on file documented as of this encounter Plan of Treatment Not on file documented as of this encounter Visit Diagnoses Diagnosis Unspecified symptom associated with female genital organs- Primary Other disorder of menstruation and other abnormal bleeding from female genital tract Nonspecific abnormal results of liver function study documented in this encounter Care Teams Event Sales Representative Relationship Specialty Start Date End Date Zachary Milton MD [address] [place] [address] PCP - General Family Practice 08/10/10 documented as of this encounter
--- OUTSIDE RECORDS SUMMARY | 2024-11-09 18:22 | XMS_ITS | Encounter Summary ---
Author Organization [facility] Address [address] [place] [address] Care Team Providers Care Digital Performance Analyst Name Role Phone Zachary Milton MD Primary Care Provider [phone] Encounter Details Date Type Department Care Team (Latest Contact Info) Description 09/03/2003 Outpatient Historical [facility] [address], [place] [phone] Rancho Oliva MD [address] [place] [phone] Dysfunct eustachian tube (Primary Dx); GENERALIZED ANXIETY DIS; Gynecologic examination Social History Tobacco Use Types Packs/Day Years Used Date Smoking Tobacco: Never Assessed Comments Unknown Sex and Gender Information Value Date Recorded Sex Assigned at Not on file Legal Sex Female 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
--- OUTSIDE RECORDS SUMMARY | 2024-11-09 18:22 | XMS_ITS | Encounter Summary ---
Author Organization [facility] Address [address] [place] [address] Care Team Providers Care Press Catcher Name Role Phone Zachary Milton MD Primary Care Provider [phone] Encounter Details Date Type Department Care Team (Latest Contact Info) Description 09/28/2006 Outpatient Historical [facility] Medicine [place] [address] [place] [address] [phone] Kailee Dorsey, 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
--- OUTSIDE RECORDS SUMMARY | 2024-11-09 18:22 | XMS_ITS | Encounter Summary ---
Author Organization [facility] Address [address] [place] [address] Care Team Providers Care Executive Administrative Assistant Name Role Phone Zachary Milton MD Primary Care Provider [phone] Encounter Details Date Type Department Care Team (Latest Contact Info) Description 11/07/2006 Outpatient Historical [facility] Medicine [place] [address], [place] [phone] Rancho Oliva MD [address], [place] [phone] Acute Bronchitis (Primary Dx) Social History Tobacco Use Types Packs/Day Years Used Date Smoking Tobacco: Never Assessed Comments Unknown Sex and Gender Information Value Date Recorded Sex Assigned at Not on file Legal Sex Female 3:59 AM BUSINESS PROCESS EXPERT Gender Identity Not on file Sexual Orientation Not on file documented as of this encounter Plan of Treatment Not on file documented as of this encounter Visit Diagnoses Diagnosis Acute bronchitis- Primary documented in this encounter Care Teams Executive Administrative Assistant Relationship Specialty Start Date End Date Zachary Milton MD [address] [place] [phone] PCP - General Family Practice 08/10/10 documented as of this encounter
[2024-11-09 18:37] VITALS: BP 196/104; PULSE 104; TEMP 37.2; O2SAT 97
--- NOTE | 2024-11-09 18:52 | W.ED.PSYCHS ---
HPI - Psych General: Chief Complaint: Psychiatric Symptoms Stated Complaint: MHE Time Seen by Provider: 11/09/24 18:28 History of Present Illness: Patient is a 44-year-old female who presents to the Emergency Department today in emotional distress. She reports having to relinquish parental rights to the state today regarding her son who is currently on the second floor. 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 She explicitly states, I don't wanna relapse and I just wanna be in a safe place so I don't make a bad decision. Patient denies suicidal or homicidal ideation, stating I don't wanna hurt myself or anything like that or anyone else. She reports significant anxiety and sadness related to her current situation. Related Data Home Medications ?Medication ?Instructions ?Recorded ?Confirmed acetaminophen 500 mg tablet 1,000 mg PO Q6H PRN Pain 11/01/21 12/27/23 Previous Rx's ?Medication ?Instructions ?Recorded budesonide-formoterol HFA 160 2 puff inhalation BID #10.2 grams 03/03/21 mcg-4.5 mcg/actuation aerosol inhaler (Symbicort) amlodipine 10 mg tablet 10 mg PO DAILY #30 tabs 04/13/22 lisinopril 10 mg tablet 10 mg PO DAILY #30 tabs 04/13/22 metoprolol succinate 25 mg 25 mg PO DAILY #30 tabs 04/13/22 tablet,extended release 24 hr (Toprol XL) gabapentin 100 mg capsule 100 mg PO Q8H 7 days #21 caps 07/11/22 albuterol sulfate 2.5 mg/3 mL 2.5 mg (3 mL) inhalation Q4H PRN 12/27/23 (0.083 %) solution for nebulization Shortness Of Breath #180 mL albuterol sulfate 90 mcg/actuation 2 puff inhalation Q4H PRN 12/27/23 aerosol inhaler (Ventolin HFA) Shortness Of Breath #8.5 grams levofloxacin 750 mg tablet 750 mg PO DAILY 7 days #7 tabs 12/27/23 prednisone 20 mg tablet 40 mg (2 x 20 mg) PO DAILY 5 days 12/27/23 #10 tabs azithromycin 250 mg tablet See Rx Instructions PO .COMPLEX #6 09/06/24 (Zithromax Z-Laci) tabs Allergies Allergy/AdvReac Type Severity Reaction Status Date / Time clindamycin Allergy Intermediate ALGY-Swell Verified 11/09/24 18:43 Lip/Tongue/Throat Penicillins Allergy Unknown Verified 11/09/24 18:43 [facility] PFSH: Medical History HTN (hypertension) with goal to be determined Smoking Swelling of right side of face Obesity Seasonal allergies Cholelithiasis Asthma Surgical History Status post laparoscopic cholecystectomy (04/19/20) History of Family History Other Bleeding disorder Denies family history of Anesthesia complication Social History Smoking and tobacco/nicotine status: current every day tobacco/nicotine user Alcohol intake: never Substance/Drug Use: never Female Reproductive History: Spontaneous abortions: No Physical Exam Const: COMMON NORMALS: no acute distress GENERAL APPEARANCE: cooperative and anxious; not ill appearing and not frail appearing HENMT: COMMON NORMALS: normocephalic, atraumatic and Normal external nose present HEAD & SCALP: normocephalic and atraumatic FACE & SINUS: normal facial exam and face symmetric NOSE: Normal external nose present Eye: COMMON NORMALS: Equal, round and reactive pupils present and EOMs intact bilaterally PUPIL: Yes Equal, round and reactive pupils present Neck/C-Spine: GENERAL: Yes trachea midline Chest: CHEST: Yes Symmetrical chest wall rise Resp: COMMON NORMALS: normal respiratory effort, No retractions, No use of accessory muscles and clear to auscultation bilaterally AUSCULTATION: clear to auscultation bilaterally Cardio: COMMON NORMALS: regular rate and regular rhythm RATE: regular rate RHYTHM: regular rhythm GI: COMMON NORMALS: Normal to inspection, nondistended, normoactive bowel sounds present Extremity: COMMON NORMALS: no pedal edema Neuro: CHLOÉ COMA SCALE: document GCS findings [place] coma scale eye opening: Spontaneous [place] coma scale verbal response: Orientated [place] coma scale motor response: Obey commands [place] coma scale total score: 15 SENSORY EXAM: Yes extremities (intact) Psych: COMMON NORMALS: speech normal SPEECH: Yes normal speech Skin: COMMON NORMALS: no rashes or lesions noted GENERAL SKIN EXAM: no rashes or lesions noted Course Vital Signs: Vital signs: Vital Signs Temperature 99.0 F 11/09/24 18:37 Pulse Rate 72 11/10/24 02:37 Respiratory Rate 18 11/10/24 02:37 Blood Pressure 145/85 11/10/24 02:37 Pulse Oximetry 98 11/10/24 02:37 Oxygen Delivery Me thod Room Air 11/10/24 01:45 MDM - Psych Medical Decision Making Medically, patient is stable. Her blood pressure was quite high on arrival. She was given her normal medications plus an additional medication, with improvement to 145/85 on discharge. She has been accepted at [facility] in [place]. She will go by ambulance this morning. Lab Data 11/09/24 20:15 11/09/24 20:15 Laboratory Results WBC 11.54 10^3/uL (3.29-11.43) H 11/09/24 20:15 RBC 4.75 10^6/uL (3.85-5.65) 11/09/24 20:15 Hgb 11.30 g/dL (11.27-16.99) 11/09/24 20:15 Hct 37.9 % (36-47) 11/09/24 20:15 MCV 79.8 fl (85-98) L 11/09/24 20:15 MCH 23.8 pg (27-33) L 11/09/24 20:15 MCHC 29.8 g/dL (30-55) L 11/09/24 20:15 RDW 17.2 % (12.1-15.1) H 11/09/24 20:15 Plt Count 448 10^3/cmm (157-399) H 11/09/24 20:15 MPV 9.1 fL (7.4-10.4) 11/09/24 20:15 Neut % (Auto) 69.6 % 11/09/24 20:15 Lymph % (Auto) 22.2 % 11/09/24 20:15 Ellis % (Auto) 6.3 % 11/09/24 20:15 Eos % (Auto) 0.9 % 11/09/24 20:15 Baso % (Auto) 0.7 % 11/09/24 20:15 Neut # (Auto) 8.03 10^3/uL (1.8-7.7) H 11/09/24 20:15 Lymph # (Auto) 2.6 10^3/uL (0.8-4.8) 11/09/24 20:15 Ellis # (Auto) 0.7 10^3/uL (0.2-0.9) 11/09/24 20:15 Eos # (Auto) 0.1 10^3/uL (0.0-0.8) 11/09/24 20:15 Baso # (Auto) 0.1 10^3/uL (0.0-0.1) 11/09/24 20:15 Nucleated RBC % (auto) 0 % 11/09/24 20:15 Nucleated RBCs # 0.0 /100WBC 11/09/24 20:15 Sodium 141 mmol/L (136-145) 11/09/24 20:15 Potassium 3.9 mmol/L (3.5-5.1) 11/09/24 20:15 Chloride 104 mmol/L (98-107) 11/09/24 20:15 Carbon Dioxide 25 mmol/L (22-29) 11/09/24 20:15 Anion Gap 15.9 (5-19) 11/09/24 20:15 BUN 8 mg/dL (6-20) 11/09/24 20:15 Creatinine 0.8 mg/dL (0.5-0.9) 11/09/24 20:15 GFR Calculation 77.9 mL/min (90-130) L 11/09/24 20:15 Glucose 92 mg/dL (65-115) 11/09/24 20:15 Calculated Osmolality 290 mOsm/kg (285-295) 11/09/24 20:15 Calcium 9.4 mg/dL (8.5-10.5) 11/09/24 20:15 Total Bilirubin 0.2 mg/dL (0.15-1.2) 11/09/24 20:15 AST 20 U/L (0-32) 11/09/24 20:15 ALT 25 U/L (0-33) 11/09/24 20:15 Alkaline Phosphatase 107 U/L (35-105) H 11/09/24 20:15 Total Protein 7.6 g/dL (6.6-8.7) 11/09/24 20:15 Albumin 4.2 g/dL (3.5-5.2) 11/09/24 20:15 Globulin 3.4 g/dL (1.3-4.6) 11/09/24 20:15 TSH 1.14 uIU/mL (0.27-4.20) 11/09/24 20:15 HCG, Qual Negative (Negative) 11/09/24 18:42 Urine Color Red (Yellow) A 11/09/24 18:42 Urine Appearance Turbid (CLEAR) A 11/09/24 18:42 Urine pH 5.0 (5-7) 11/09/24 18:42 Ur Specific [place] 1.025 (1.005-1.030) 11/09/24 18:42 Urine Protein 2+ (Negative) A 11/09/24 18:42 Urine Glucose (UA) Negative (Normal) 11/09/24 18:42 Urine Ketones Negative (Negative) 11/09/24 18:42 Urine Blood 3+ (Negative) A 11/09/24 18:42 Urine Nitrate Positive (Negative) A 11/09/24 18:42 Urine Bilirubin 2+ (Negative) H 11/09/24 18:42 Urine Urobilinogen 0.2 mg/dL (Negative) 11/09/24 18:42 Ur Leukocyte Esterase 2+ (Negative) A 11/09/24 18:42 Urine RBC >100 /hpf (0-2) H 11/09/24 18:42 Urine WBC 11-20 /hpf (0-5) H 11/09/24 18:42 Ur Squamous Epith Cells 0-5 /hpf (0-5) 11/09/24 18:42 Amorphous Sediment 4+ /hpf 11/09/24 18:42 Urine Bacteria Trace /hpf (NONE) 11/09/24 18:42 Hyaline Casts 0-4 /lpf H 11/09/24 18:42 Salicylates < 0.3 mg/dL (3-10) L 11/09/24 20:15 Urine Opiates Screen Negative ng/mL (Negative) 11/09/24 18:42 Acetaminophen < 5.0 ug/mL (10-30) L 11/09/24 20:15 Ur Barbiturates Screen Negative ng/mL (Negative) 11/09/24 18:42 Ur Phencyclidine Scrn Negative ng/mL (Negative) 11/09/24 18:42 Ur Amphetamines Screen Negative ng/mL (Negative) 11/09/24 18:42 U Benzodiazepines Scrn Negative ng/mL (Negative) 11/09/24 18:42 Urine Cocaine Screen Negative ng/mL (Negative) 11/09/24 18:42 U Marijuana (THC) Screen Positive ng/mL (Negative) H 11/09/24 18:42 Ethyl Alcohol < 10 mg/dL (0-10) 11/09/24 20:15 C. trachomatis (PCR) Not detected (Negative) 11/09/24 21:43 Hepatitis A IgM Ab Non-reactive (Nonreactive) 11/09/24 20:15 Hep Bs Antigen Non-reactive (Nonreactive) 11/09/24 20:15 Hep B Core IgM Ab Non-reactive (Nonreactive) 11/09/24 20:15 Hepatitis C Antibody Non-reactive (Nonreactive) 11/09/24 20:15 HIV 1&2 Ab & HIV 1 Ag Non-reactive (Non-Reactiv) 11/09/24 20:15 HIV 1&2 Antibody Non-reactive (Non-Reactiv) 11/09/24 20:15 Influenza A (PCR) Negative (Negative) 11/09/24 21:30 Influenza Type B (PCR) Negative (Negative) 11/09/24 21:30 N. gonorrhoeae (PCR) Not detected (Negative) 11/09/24 21:43 RSV (PCR) Negative (Negative) 11/09/24 21:30 SARS-CoV-2 (PCR) Negative (Negative) 11/09/24 21:30 No radiology studies performed this visit Discharge Plan Discharge Patient Disposition: Xfer Psychiatric [facility]osp Clinical Impression: Acute anxiety, Depression Print Language: Uzbek Coding Level of Care Code ED Financial Supervisor for Melony Mansfield
[2024-11-09 19:08] LABS: Glucose Urine UA Negative (Normal); Nitrate Urine Positive (Negative); Specific Gravity, Urine 1.025 (1.005-1.030)
[2024-11-09 19:13] LABS: Add Urine Microscopic? YES
[2024-11-09 19:14] LABS: PCP Screen Urine Negative (Negative)
[2024-11-09 19:27] LABS: HCG Qualitative Urine. Negative (Negative)
[2024-11-09 19:32] LABS: UA Slide Review UA Slide Review Perf
[2024-11-09 19:58] VITALS: BP 219/119; PULSE 97; RESP 18; O2SAT 97
[2024-11-09 20:02] VITALS: BP 219/119
[2024-11-09 20:19] LABS: Hematocrit 37.9 % (36-47); Hemoglobin 11.30 g/dL (11.27-16.99); Mean Corpuscular HGB Conc 29.8 g/dL (30-55); Mean Corpuscular Hemoglobin 23.8 pg (27-33); Mean Corpuscular Volume 79.8 fl (85-98); Nucleated Red Blood Cells % 0 %; Platelet Count 448 10^3/cmm (157-399); Red Blood Count 4.75 10^6/uL (3.85-5.65); White Blood Count 11.54 10^3/uL (3.29-11.43)
[2024-11-09 20:44] LABS: Alanine Aminotransferase 25 U/L (0-33); Albumin Level 4.2 g/dL (3.5-5.2); Alkaline Phosphatase 107 U/L (35-105); Anion Gap 15.9 (5-19); Aspartate Amino Transferase 20 U/L (0-32); Blood Urea Nitrogen 8 mg/dL (6-20); Calcium 9.4 mg/dL (8.5-10.5); Carbon Dioxide 25 mmol/L (22-29); Chloride 104 mmol/L (98-107); Creatinine Clr Calc Pharmacy 126.9005; Globulin 3.4 g/dL (1.3-4.6); Glucose 92 mg/dL (65-115); Osmolality Calculated 290 mOsm/kg (285-295); Potassium 3.9 mmol/L (3.5-5.1); Sodium 141 mmol/L (136-145); Total Protein 7.6 g/dL (6.6-8.7)
[2024-11-09 21:02] LABS: Acetaminophen < 5.0 ug/mL (10-30); Alcohol Level < 10 mg/dL (0-10); Salicylate < 0.3 mg/dL (3-10)
--- NOTE | 2024-11-09 21:20 | ECG_ITS ---
[facility] Test Date: 2024-11-09 Pat Name: Jimmie Knapp Department: Room: Gender: Female Admin Dir: : 1980 Requested By: Vamsi Villasenor Order Number: [id number] Trista MD: KALIE VEGA Measurements Intervals Leonore Rate: 85 P: 52 IN: 148 QRS: -1 QRSD: 88 T: 48 QT: 381 QTc: 455 Interpretive Statements SINUS RHYTHM MODERATE VOLTAGE CRITERIA FOR LVH, CONSIDER NORMAL VARIANT [MEETS CRITERIA IN ONE OF: R(aVL), S(V1), R(V5), R(V5/V6)+S(V1)] NONSPECIFIC T-WAVE ABNORMALITY No previous ECG available for comparison Electronically Signed On 11-10-2024 10:48:34 CDT by KALIE VEGA [email or web address]
[2024-11-09 21:37] LABS: HIV 1 & 2 Antigen Non-Reactive (Non-Reactiv)
[2024-11-09 21:50] LABS: Hepatitis A Antibody IgM Non-Reactive (Nonreactive); Hepatitis B Surface Antigen Non-Reactive (Nonreactive)
[2024-11-09 21:58] VITALS: BP 148/99
[2024-11-09 22:05] LABS: Thyroid Stimulating Hormone 1.14 uIU/mL (0.27-4.20)
[2024-11-09 22:24] LABS: Respiratory Syncytial Virus Ce NEGATIVE (Negative); SARS-CoV-2 PCR NEGATIVE (Negative)
[2024-11-09 23:52] VITALS: BP 116/52
[2024-11-10 01:45] VITALS: BP 145/87; PULSE 72; RESP 18; O2SAT 97
[2024-11-10 01:58] LABS: Neisseria Gonorrhea NOT DETECTED (Negative)
[2024-11-10 02:37] VITALS: BP 145/85; PULSE 72; RESP 18; O2SAT 98
== END 2024-11-10 02:40 ==
PROVIDERS: Emergency Provider Emergency Medicine
DX: F41.8 Other specified anxiety disorders (principal); F32.A Depression, unspecified; Z11.52 Encounter for screening for COVID-19; Z72.0 Tobacco use; I10 Essential (primary) hypertension
CPT/HCPCS: 36415; 80053; 80074; 80306; 80307; 81001; 81025; 84443; 85025; 87086; 87491; 87591; 87637; 87806; 93005; 99285; J9999